=== PATIENT | male | born 1950 | race Caucasian/White ===

== ENCOUNTER 2017-01-22 06:37 | Day surgery (SDC) | payer BC ==
[2017-01-13 10:23] LABS: URINE APPEARANCE CLEAR; URINE BILIRUBIN NEGATIVE (NEGATIVE); URINE COLOR STRAW; URINE GLUCOSE (UA) 2+ (NEGATIVE); URINE KETONE NEGATIVE (NEGATIVE); URINE LEUK ESTERASE NEGATIVE (NEGATIVE); URINE NITRITE NEGATIVE (NEGATIVE); URINE UROBILINOGEN NEGATIVE E.U./dl (0.2-1.0)
[2017-01-13 10:26] LABS: BASOPHIL 0.7 % (0-2.0); EOSINOPHIL 3.3 % (0-4.5); MCH 32.1 pg (25.7-33.7); MCHC 33.9 g/dl (32.0-35.9); MEAN CELL VOLUME 94.5 fl (80-96); MEAN PLT VOLUME 8.6 fl (7.5-11.1); NEUTROPHILS 69.8 % (42.8-82.8); PLATELET COUNT 221 K/MM3 (134-434); RDW 12.5 % (11.9-15.9); WHITE BLOOD COUNT 6.3 K/mm3 (4.0-10.0)
[2017-01-13 10:37] LABS: INR 1.07 (0.82-1.09); PROTHROMBIN TIME (PATIENT) 11.8 SEC (9.98-11.88)
[2017-01-13 10:40] LABS: ACTIVATED PTT 27.6 SECONDS (26.9-34.4)
[2017-01-13 10:52] LABS: ALBUMIN 3.1 g/dl (3.4-5.0); ANION GAP 13 (8-16); CALCIUM 7.6 mg/dL (8.5-10.1); CO2 25 mmol/L (21-32); GLUCOSE,RANDOM 140 mg/dL (74-106); SGOT/AST 13 U/L (15-37); SGPT/ALT 11 U/L (12-78)
[2017-01-13 10:53] LABS: URINE BLOOD 1+ (NEGATIVE); URINE PROTEIN 3+ (NEGATIVE)
[2017-01-13 10:54] LABS: ALK PHOS 58 U/L (45-117); BILIRUBIN,TOTAL 0.9 mg/dL (0.2-1.0); CREATININE 5.2 mg/dL (0.7-1.3); TOT PROT 6.4 g/dl (6.4-8.2)
[2017-01-13 11:00] LABS: URINE RBC <1 /hpf (0-3); URINE WBC <1 /hpf (3-5)
--- NOTE | 2017-01-13 14:16 | EKG ---
Test Reason : Blood Pressure : / mmHG Vent. Rate : 075 BPM Atrial Rate : 075 BPM P-R Int : 150 ms QRS Dur : 080 ms QT Int : 384 ms P-R-T Axes : 073 054 063 degrees QTc Int : 428 ms NORMAL SINUS RHYTHM NORMAL ECG WHEN COMPARED WITH ECG OF 24-MAY-2010 10:45, NO SIGNIFICANT CHANGE WAS FOUND Confirmed by ROOSEVELT ROBLEDO MD ([id number]) on 01/13/2017 2:16:11 PM Referred By: JED GATICA Confirmed By:ROOSEVELT ROBLEDO MD
[2017-01-21 13:00] VITALS: BMI 26.9
[2017-01-22] MEDS ORDERED: HEPARIN NA (PORCINE) 5,000 UNITS/ML 1ML VIAL ONE (07:46)
[2017-01-22] MEDS ORDERED: LIDOCAINE HCL 1%, 10 MG/ML (20ML VIAL) ONE (07:46)
[2017-01-22] MEDS ORDERED: MIDAZOLAM HCL 2 MG/2 ML SINGLE DOSE VIAL ONE ×3 (07:53→09:15)
[2017-01-22] MEDS ORDERED: ONDANSETRON 4 MG/2 ML VIAL IVPUSH PRN (07:55)
[2017-01-22] MEDS ORDERED: PROMETHAZINE HCL 25 MG/1 ML VIAL IVPUSH PRN (07:55)
[2017-01-22] MEDS ORDERED: oxyCODONE HCL 5 MG TABLET PO PRN (07:55)
--- NOTE | 2017-01-22 08:02 | HP ---
History & Physical Update - History History: No Change - Physical Physical: No Change - Assessment Assessment: No Change - Plan Plan: No Change
--- NOTE | 2017-01-22 08:08 | HP ---
[facility] - Chief Complaint History of Present Illness: 66 year old man with chronic kidney disease who will need dialysis in near future. History Source: Patient Limitations to Obtaining History: No Limitations - Past Medical History Allergies/Adverse Reactions: Allergies Allergy/AdvReac Type Severity Reaction Status Date / Time No Known Allergies Allergy Verified 01/22/17 07:07 Cardiovascular: Yes: HTN Renal/: Yes: Renal Inusuff - Current Medications Current Medications: Home Medications Medication Instructions Recorded RX: Amlodipine Besylate [Norvasc -] 1 tab PO DAILY 11/08/13 Alfuzosin HCl [Uroxatral] 10 mg PO DAILY 01/22/17 RX: Losartan Potassium 100 mg PO DAILY 01/22/17 Rosuvastatin Calcium [Crestor] 20 mg PO DAILY 01/22/17 Satellite Physical Exam - Physical Examination Vital Signs: Vital Signs Period Temp Pulse Resp BP Sys/Ambrocio Pulse Ox Last 24 Hr 97.5 F-97.5 F 90-90 20-20 118-118/60-60 95 General Appearance: Alert & Oriented x3 ENT: Clear Lung: Clear to auscultation Heart: Regular rate & rhythm Abdomen: Soft Extremities: No edema, Other (Left cephalic vein patent proximal to elbow) [facility] Impression/Plan - Impression/Plan Impression: CKD Operative Procedure: Creation AV fistula left arm Date to be Performed: 01/22/17
[2017-01-22] MEDS ORDERED: POVIDONE-IODINE OINTMENT 10% - 28.4 GM TUBE ONE (08:26)
[2017-01-22] MEDS ORDERED: PAPAVERINE HCL 30 MG/1 ML 10 ML VIAL NR ONE (08:26)
[2017-01-22] MEDS ORDERED: PROPOFOL 20 ML ONE (08:32)
[2017-01-22] MEDS ORDERED: LIDOCAINE HCL 1%, 10 MG/ML (20ML VIAL) IJ ONE (08:40)
[2017-01-22] MEDS ORDERED: POVIDONE-IODINE OINTMENT 10% - 28.4 GM TUBE TP ONE (09:11)
--- NOTE | 2017-01-22 09:45 | OP ---
Operative Note - Note: Operative Date: 01/22/17 Pre-Operative Diagnosis: CKD 5 Operation: Creation AV fistula left arm Findings: Patent cephalic vein at wrist. Radial artery 2.5 mm Surgeon: Kai Doyle Industrial Gas Production Operator: Tamie Falk Anesthesiologist/EMPLOYMENT DIRECTOR: Lisa Michaels MD Anesthesia: Fractional Estimated Blood Loss (mls): 10
[2017-01-22] MEDS ORDERED: ACETAMINOPHEN 325 MG TABLET (FP) PO PRN (09:46)
[2017-01-22 10:30] VITALS: TEMP 98.2
[2017-01-22 11:39] VITALS: BP 115/66; PULSE 91
--- NOTE | 2017-01-22 14:26 | OP ---
DATE OF OPERATION: 01/22/2017 PROCEDURE: Creation of arteriovenous fistula in the left arm. PREOPERATIVE DIAGNOSIS: Chronic kidney disease stage 5. POSTOPERATIVE DIAGNOSIS: Chronic kidney disease stage 5. ANESTHESIA: Fractional. ANESTHESIOLOGIST: . FISH ROD MAKER: NESTOR Leroy. OPERATIVE FINDINGS: The cephalic vein was patent in the distal forearm with a diameter of approximately 3-4 mm. The radial artery was patent with a diameter of approximately 2.5 mm. PROCEDURE IN DETAIL: Following routine patient identification with site and side verification, intravenous sedation was established. The left arm was prepped with ChloraPrep. Xylocaine 1% was infiltrated over the radial pulse proximal to the wrist and a longitudinal incision was mad. Subcutaneous tissues were divided with cautery. The artery was identified and was carefully mobilized from surrounding tissues. It was encircled proximally and distally with Vesseloops. Small side branches were ligated with silk ties and divided. The artery was covered with moist gauze. Additional Xylocaine was then infiltrated over the distal cephalic vein which had been mapped preoperatively with duplex imaging. The vein was exposed through a skin incision and cautery was used for hemostasis. The vein was ligated distally and incised. It was distended with heparin and papaverine solution. A No. 5 and No. 8 feeding tubes were passed proximal without resistance. The vein was filled with heparin and papaverine solution. Side branches of the vein were ligated and divided. The vein was mobilized from its bed. A small subcutaneous tunnel was then created between the 2 incisions and the vein passed with care not to twist it so the end was lying next to the artery. The artery was occluded with the clips and opened with a longitudinal arteriotomy measuring approximately 6 mm. Forward and back flow from the artery was checked and found to be pulsatile. The end of the vein was then spatulated and anastomosed to the side of the artery with running suture of 6-0 Prolene. Prior to completing the suture line the artery was allowed to backbleed and flush and the vein was flushed with heparin solution. The suture line was completed and all vessels were released. There was palpable thrill in the distal vein. Evaluation by the handheld Doppler revealed venous flow up to the level of the antecubital fossa. When hemostasis was achieved, the wound was irrigated and closed with interrupted suture of 3-0 Vicryl and skin mirtha. Sterile dressings were applied and the patient was taken to the recovery room in stable condition. Omid DUMONT/[id number]
--- NOTE | 2017-01-22 19:52 | SURG ---
Surgery Foundry Equipment Mechanic Note Foundry Equipment Mechanic: Tamie Falk PA-C Date of Service: 01/22/17 Diagnosis: Creation AV fistula left arm Procedure: Patent cephalic vein at wrist. Radial artery 2.5 mm I was present for the entirety of the operative procedure. For further detail, please refer to operative report. Visit type - Case Type Case Type: Scheduled Admission - Emergency Emergency Visit: No - New patient This patient is new to me today: Yes Date on this admission: 01/22/17 - Critical Care Critical Care patient: No
== END 2017-01-22 11:39 | disposition home or self-care (01) ==
LOC: JASU-SURG 06:37
PROVIDERS: ATTEND Surgery
PROC: 031C0ZF Bypass Left Radial Artery to Lower Arm Vein, Open Approach (ICD-10-PCS; principal; 2017-01-22 08:00)
DX: I12.0 Hypertensive chronic kidney disease with stage 5 chronic kidney disease or end stage renal disease (principal); N18.6 End stage renal disease
CPT/HCPCS: 36415; 80053; 81003; 81015; 85025; 85610; 85730; 93005; 93010; 94760; J1644

== ENCOUNTER 2017-06-06 16:10 | Inpatient (IN) | payer BC, OTHER ==
[2017-06-06 16:41] VITALS: BMI 26.9
--- NOTE | 2017-06-06 16:49 | PDOC ---
History of Present Illness - General History Source: Patient Exam Limitations: No Limitations - History of Present Illness Initial Comments: 06/06/17 17:00 67 year old male, with PMH of Stage 5 CKD, who presents to the emergency room today s/p 1 syncopal episode this afternoon and SOB. The patient explains that he was feeling more SOB than usual today and notes that he cannot make it up a few steps without stopping to catch his breath. He was in the backyard this afternoon turning off the faucet for the hose, when he felt very SOB, lost consciousness, and fell backwards. He hit the back of his head and obtained a laceration which was initially bleeding. The patient went to visit in the office who sent him into the ER concerned for a PE. The patient is scheduled to start his first dialysis treatment next week. Denies fever, chills, nausea, vomiting. Denies headache, lightheadedness. Denies chest pain, cough. Allergies: NKDA PCP: Dr. Vinny Hamm Technical Editor: Dr. [employer] Teammate: Dr. Hopkins <Zuleyka Benedict - Last Filed: 06/06/17 18:59> <James Sosa - Last Filed: 06/06/17 19:59> - General Chief Complaint: Syncope/Near Syncope Stated Complaint: FALL Time Seen by Provider: 06/06/17 16:37 Past History <Zuleyka Benedict - Last Filed: 06/06/17 18:59> - Past Medical History Anemia: No Asthma: No Cancer: No Cardiac Disorders: No CVA: No COPD: No CHF: No Dementia: No Diabetes: No GI Disorders: Yes (COLON POLYPS,HEMORROIDS;GERD; DIVERTICULOSIS;TUBULAR ADENOMA X 3) Disorders: No HTN: No Hypercholesterolemia: Yes Liver Disease: No Seizures: No Thyroid Disease: No Other medical history: enlarged prostate, end stage renal disease - Surgical History Abdominal Surgery: No Appendectomy: No Cardiac Surgery: No Cholecystectomy: No Lung Surgery: No Neurologic Surgery: No Orthopedic Surgery: No - Immunization History Immunization Up to Date: Yes - Suicide/Smoking/Psychosocial Hx Smoking History: Former smoker Have you smoked in the past 12 months: No If you are a former smoker, when did you quit?: 10 years ago Information on smoking cessation initiated: No Hx Alcohol Use: No Drug/Substance Use Hx: No Substance Use Type: None Hx Substance Use Treatment: No <SheilaJames nolasco - Last Filed: 06/06/17 19:59> - Past Medical History Allergies/Adverse Reactions: Allergies Allergy/AdvReac Type Severity Reaction Status Date / Time No Known Allergies Allergy Verified 06/06/17 16:35 Home Medications: Ambulatory Orders Amlodipine Besylate [Norvasc -] 1 tab PO DAILY 11/08/13 Alfuzosin HCl [Uroxatral] 10 mg PO DAILY 01/22/17 Losartan Potassium 100 mg PO DAILY 01/22/17 Rosuvastatin Calcium [Crestor] 20 mg PO DAILY 01/22/17 Carvedilol 6.25 mg PO DAILY 06/06/17 Furosemide [Lasix] 40 mg PO DAILY 06/06/17 Lidocaine [Anecream5] 30 gm TP DAILY 06/06/17 Review of Systems - Review of Systems Able to Perform ROS?: Yes Comments:: 06/06/17 17:01 A complete review of 10 out of 10 review of systems is taken and is negative apart from what is previously mentioned below and in the HPI. <Zuleyka Benedict - Last Filed: 06/06/17 18:59> *Physical Exam - Vital Signs Last Vital Signs Temp Pulse Resp BP Pulse Ox 97.4 F L 112 H 20 150/81 86 L 06/06/17 16:10 06/06/17 16:10 06/06/17 16:10 06/06/17 16:10 06/06/17 16:10 - Physical Exam Comments: 06/06/17 17:01 Vitals: Triage Vital signs reviewed General Appearance: no acute distress, well nourished well developed Head: + 3cm x 3cm abrasion to the left occiput. No laceration. Eyes: Pupils equal reactive round, extraocular movement intact Nose: Nares patent bilaterally; no nasal congestion Throat: Posterior oropharynx without erythema, mucous membranes moist Neck: Supple; No Nucal rigidity Chest Wall: Nontender Cardiac: Regular rate and rhythym, no murmurs, no rubs, no gallops Lungs: Fine crackles at the bases bilaterally, good air movement bilaterally Abdomen: Soft, non distended, normal bowel sounds, non tender to palpation Skin: +Left wrist fistula with palpable thrill. Warm and dry, no rashes or lesions, no rash, no petechiae Neuro: AOX3; Cranial Nerves 2-12 grossly intact, Strength intact to all extremities, Sensation intact to all extremities Psych: Normal mood, normal affect <Zuleyka Benedict - Last Filed: 06/06/17 18:59> - Vital Signs Last Vital Signs Temp Pulse Resp BP Pulse Ox 97.4 F L 112 H 20 150/81 86 L 06/06/17 16:10 06/06/17 16:10 06/06/17 16:10 06/06/17 16:10 06/06/17 16:10 <James Sosa - Last Filed: 06/06/17 19:59> Heart Score/ECG Review #1 06/06/17 18:08 EKG performed at 17:13 demonstrates rate of 115bpm , rhythm of sinus tachycardia, axis equal to normal. No st elevations, no t wave inversions <Zuleyka Benedict - Last Filed: 06/06/17 18:59> ED Treatment Course - LABORATORY CBC & Chemistry Diagram: 06/06/17 16:45 06/06/17 16:45 - ADDITIONAL ORDERS Additional order review: 06/06/17 16:45 RBC 3.16 L MCV 93.3 MCHC 33.4 RDW 14.7 MPV 7.8 Neutrophils % 78.1 Lymphocytes % 12.1 Monocytes % 8.7 Eosinophils % 0.6 D Basophils % 0.5 <Zuleyka Benedict - Last Filed: 06/06/17 18:59> - LABORATORY CBC & Chemistry Diagram: 06/06/17 16:45 06/06/17 16:45 - RADIOLOGY Radiology Studies Ordered: Category Date Time Status HEAD CT WITHOUT CONTRAST [CT] Stat CT Scan 06/06/17 16:38 Ordered CXRPORT [CHEST X-RAY PORTABLE*] [RAD] Stat Radiology 06/06/17 16:38 Ordered <James Sosa - Last Filed: 06/06/17 19:59> Medical Decision Making - Medical Decision Making 06/06/17 19:58 HEENT with stage V renal nephropathy presents with syncopal episode with exacerbation of shortness of breath. Small abrasion noted to back of head. Bacitracin applied. Tetanus updated. EKG sinus tachycardia. Given mild tachycardia mild hypoxia and syncope CTA ordered. Dr. Pickering at bedside. We'll dialyze patient immediately after CTA Reevaluation 745 no evidence of PE on CTA. Patient to be sent to dialysis as we' ll admit to medicine for further management and further evaluation of additional CT findings. <James Sosa - Last Filed: 06/06/17 19:59> *DC/Admit/Observation/Transfer - Attestations Scribe Attestion: 06/06/17 17:02 Documentation prepared by SIERRA Jennings, acting as clinical medical assistant for James Sosa MD. <Zuleyka Benedict - Last Filed: 06/06/17 18:59> - Discharge Dispostion Admit: Yes <James Sosa - Last Filed: 06/06/17 19:59> Diagnosis at time of Disposition: CKD (chronic kidney disease) stage 5, GFR less than 15 ml/min, ESRD (end stage renal disease)
[2017-06-06 16:55] LABS: BASOPHIL 0.5 % (0-2.0); EOSINOPHIL 0.6 % (0-4.5); MCH 31.2 pg (25.7-33.7); MCHC 33.4 g/dl (32.0-35.9); MEAN CELL VOLUME 93.3 fl (80-96); MEAN PLT VOLUME 7.8 fl (7.5-11.1); NEUTROPHILS 78.1 % (42.8-82.8); PLATELET COUNT 246 K/MM3 (134-434); RDW 14.7 % (11.9-15.9); WHITE BLOOD COUNT 8.2 K/mm3 (4.0-10.0)
[2017-06-06 17:10] LABS: URINE APPEARANCE SLCLOUDY; URINE BILIRUBIN NEGATIVE (NEGATIVE); URINE BLOOD 1+ (NEGATIVE); URINE COLOR LTYELLOW; URINE GLUCOSE (UA) 3+ (NEGATIVE); URINE KETONE NEGATIVE (NEGATIVE); URINE NITRITE NEGATIVE (NEGATIVE); URINE UROBILINOGEN NEGATIVE mg/dL (0.2-1.0)
[2017-06-06 17:19] LABS: URINE HYALINE CAST 7 /lpf; URINE MUCUS RARE; URINE PROTEIN 3+ (NEGATIVE); URINE RBC 3; URINE WBC 6
[2017-06-06 17:25] LABS: ALBUMIN 2.7 g/dl (3.4-5.0); ANION GAP 11 (8-16); CALCIUM 7.1 mg/dL (8.5-10.1); CO2 17 mmol/L (21-32); CREATININE 3.9 mg/dL (0.7-1.3); GLUCOSE,RANDOM 161 mg/dL (74-106); SGOT/AST 14 U/L (15-37); SGPT/ALT 15 U/L (12-78); TOT PROT 5.9 g/dl (6.4-8.2)
[2017-06-06 17:26] LABS: ALK PHOS 72 U/L (45-117)
--- NOTE | 2017-06-06 18:25 | CON.NEP ---
Consult Consult Specialty:: Nephrology Reason for Consultation:: CKD Stage IV/V, admitted with syncopal episode. - History of Present Illness Chief Complaint: I fell and hit my head. History of Present Illness: Mr. Krishnamurthy is a 67 year old gentleman with a history of CKD stage V (eGFR 13-15 mL/min/1.73m2) from refractory idiopathic membranous nephropathy, who presented to ED after falling at home this afternoon. He was seen in office earlier today and was noted to have been experiencing progressive dyspnea, thought to be the result of volume overload. He was prescribed lasix 40 mg today, which he did not start. He went home and started to do some work in his backyard. He recalls bending down to turn off a hose, and then found himself on the floor. The event was witnessed by his , who said he "collapsed" and struck the back of his head on a concrete. She called 911. Upon arrival in the ED, he was noted to be awake and alert, with an abrasion to his occipital area. He was noted to have hypoxemia and dyspnea (see below): Vital Signs Temperature 97.4 F L 06/06/17 16:10 Pulse Rate 112 H 06/06/17 16:10 Respiratory Rate 20 06/06/17 16:10 Blood Pressure 150/81 06/06/17 16:10 O2 Sat by Pulse Oximetry (%) 86 L 06/06/17 16:10 His preliminary labs revealed: Laboratory Results - last 24 hr 06/06/17 06/06/17 06/06/17 16:45 16:45 16:45 WBC 8.2 RBC 3.16 L Hgb 9.9 L D Hct 29.5 L MCV 93.3 MCH 31.2 MCHC 33.4 RDW 14.7 Plt Count 246 MPV 7.8 Neutrophils % 78.1 Lymphocytes % 12.1 Monocytes % 8.7 Eosinophils % 0.6 D Basophils % 0.5 PTT (Actin FS) Sodium 145 Potassium 4.0 Chloride 117 H Carbon Dioxide 17 L Anion Gap 11 BUN 37 H Creatinine 3.9 H Creat Clearance w eGFR 15.45 Random Glucose 161 H Calcium 7.1 L Total Bilirubin 1.0 AST 14 L D ALT 15 D Alkaline Phosphatase 72 Troponin I 0.04 B-Natriuretic Peptide Total Protein 5.9 L Albumin 2.7 L Urine Color Urine Appearance Urine pH Ur Specific Berkey Urine Protein Urine Glucose (UA) Urine Ketones Urine Blood Urine Nitrite Urine Bilirubin Urine Urobilinogen Urine WBC (Auto) Urine RBC (Auto) Ur Epithelial Cells Hyaline Casts Urine Mucus Blood Type Antibody Screen B-Natriuretic Peptide 25461.00 H Given his history of nephrotic syndrome and syncopal event, decision was made to exclude entities such as pulmonary embolus. He was sent for CT head (non- contrast), as well as CTA chest to exclude PE. Given his low GFR, the need for IV contrast administration and suspected volume overload, we discussed the need to initiate HD following his CTA. He understands and has agreed. Of note, he was scheduling a start date at [facility] for next week. Historically, he was initially diagnosed in 2006, was treated with multiple immunosuppressive regimens, but continued to progress. He has been off of all immunosuppression since 2014, the last being a trial of ACTHAR (2 courses of 6 months). He has followed with Dr. Helton ([facility]) since 2008 and followed up with him on August 08, 2016 for an opinion regarding use of additional immunosuppression medication. At that time, Mr. Krishnamurthy was noted to have a BUN/ Cr of 49/3.33 with a UPCR 13323 mg/g. Given his lack of response to prior therapies, no additional immunosuppressants were recommended. He states that he underwent cardiac nuclear stress testing in January, which did not reveal any acute changes. He was diagnosed with early prostate cancer in January, and was told that no Rx was necessary at this time. He underwent successful creation of left AVF in January and had follow up with Dr. Doyle on 03/11/17. He received Hep B vaccine #1 and #2 on 02/13/17. He is due for his third dose in Jul, 2017. He is scheduled for a biopsy of a second thyroid nodule in 1 week. - History Source History Provided By: Patient Limitations to Obtaining History: No Limitations - Past Medical History Cardio/Vascular: Yes: HTN Gastrointestinal: Yes: Other (benign colonic polyps) Renal/: Yes: Renal Inusuff (Idiopathic membranous nephropathy (dx 2006, failed to respond to prior therapy with agents including mycophenolate, Cytoxan , tacrolimus, prednisone, intravenous rituximab and Acthar Gel) ) Heme/Onc: Yes: Anemia Infectious Disease: No: AIDS, C-Diff, Herpes Zoster, HIV, MRSA, STD's, Tuberculosis, VREF, Other Psych: No: Addictions, Anxiety, Bipolar, Depression, Panic, Psychosis, Schizophrenia, Other Musculoskeletal: No: Bursitis, Chronic low back pain, Hemiparesis, Hemiplegia, Osteoarthritis, Paraplegia, Other Rheumatology: No: Fibromyalgia, Gout, Lupus, Rheumatoid Arthritis, Sarcoidosis, Vasculitis, Other ENT: No: Allergic Rhinitis, Sinusitis, Other Endocrine: Yes: Hyperparathyroidism, Other (Multinodular goiter) - Past Surgical History Past Surgical History: Yes: AV Fistula/Graft (left arm) - Alcohol/Substance Use Hx Alcohol Use: No (quit all EtOH use approximately 1 month ago; 1-2 glasses wine 3-4x week nasir) History of Substance Use: reports: None - Smoking History Smoking history: Former smoker Have you smoked in the past 12 months: No If you are a former smoker, when did you quit?: 10 years ago - Social History Usual Living Arrangement: With Spouse ADL: Independent Place of : Other ([place]) Home Medications - Allergies Allergies/Adverse Reactions: Allergies Allergy/AdvReac Type Severity Reaction Status Date / Time No Known Allergies Allergy Verified 06/06/17 16:35 - Home Medications Home Medications: Ambulatory Orders Amlodipine Besylate [Norvasc -] 1 tab PO DAILY 11/08/13 Alfuzosin HCl [Uroxatral] 10 mg PO DAILY 01/22/17 Losartan Potassium 100 mg PO DAILY 01/22/17 Rosuvastatin Calcium [Crestor] 20 mg PO DAILY 01/22/17 Carvedilol 6.25 mg PO DAILY 06/06/17 Furosemide [Lasix] 40 mg PO DAILY 06/06/17 Lidocaine [Anecream5] 30 gm TP DAILY 06/06/17 Family Disease History - Family Disease History Family History: Unremarkable Review of Systems - Review of Systems Constitutional: reports: Loss of Appetite, Malaise, Weakness. denies: Chills, Diaphoresis, Fever, Lethargy, Night Sweats, Unintentional Wgt. Loss Eyes: denies: Blind Spots, Blurred Vision, Double Vision, Eye Pain, Floaters, Photophobia HENT: reports: Other (abbrasion to occipital region, oozing). denies: Difficult Swallowing, Ear Discharge, Ear Pain, Nasal Congestion Neck: denies: Decreased ROM, Lumps, Pain on Movement Cardiovascular: reports: Shortness of Breath. denies: Chest Pain, Edema, Palpitations Respiratory: reports: Exercise Intolerance, Orthopnea, SOB, SOB on Exertion. denies: Cough, Hemoptysis Gastrointestinal: reports: Bloating. denies: Abdominal Pain, Constipation, Diarrhea, Dysphagia, Indigestion Genitourinary: denies: Burning, Discharge, Dysuria, Flank Pain, Frequency Musculoskeletal: reports: Back Pain, Muscle Weakness. denies: Joint Pain, Joint Swelling, Muscle Pain, Muscle Cramps Integumentary: reports: Wound (to posterior occipital area) Neurological: reports: Headache, Syncope (possible LOC). denies: Change in LOC , Change in Speech, Confusion, Dizziness, Incoordination, Numbness, Seizure Endocrine: denies: Excessive Sweating, Flushing Hematology/Lymphatic: reports: No Symptoms Psychiatric: reports: No Symptoms Nephrology Consult - Height Height: 5 ft 7 in - Weight Weight: 172 lb - BMI Body Mass Index (BMI): 26.9 - Lab Results CBC,BMP: CBC, BMP 06/06/17 16:45 06/06/17 16:45 Anion Gap: Anion Gap Anion Gap 11 (8-16) 06/06/17 16:45 - Imaging Chest X-ray: Pending Cat Scan: Pending - Physical Examination Vital Signs: Vital Signs Temperature 97.4 F L 06/06/17 16:10 Pulse Rate 112 H 06/06/17 16:10 Respiratory Rate 20 06/06/17 16:10 Blood Pressure 150/81 06/06/17 16:10 O2 Sat by Pulse Oximetry (%) 86 L 06/06/17 16:10 Constitutional: Yes: Anxious, Mild Distress Eyes: Yes: Conjunctiva Clear HENT: Yes: Other (2-3 cm circular region of excoritation to occipital region, oozing) Neck: Yes: Supple Cardiovascular: Yes: Tachycardia, S1, S2. No: S3, S4 Respiratory: Yes: Diminished Gastrointestinal: Yes: Soft, Distention. No: Tenderness Renal/: No: Bladder Distention Access for Hemodialysis: AV Fistula (left AVF + thrill) Musculoskeletal: No: Back Pain, Joint Stiffness, Joint Swelling Edema: No Integumentary: Yes: Other (see HEENT exam) Neurological: Yes: Alert, Oriented Psychiatric: Yes: WNL Problem List - Problems (1) CKD (chronic kidney disease) stage 5, GFR less than 15 ml/min Assessment/Plan: Mr. Krishnamurthy is a 67 year old gentleman with CKD Stage V, secondary to severe and refractory membranous nephropathy. He has a functional left arm AVF, but has not started hemodialysis. He has been managed medically and was planning to electively start HD next week at [facility]. He has been experiencing progressive dyspnea and hypoalbuminemia. Following his syncopal episode, in the context of dyspnea and hypoxemia, it was decided that he would need a CTA with contrast. Given suspected volume overload and advanced CKD with use of IV contrast, will arrange for initial hemodialysis tonight for 2 hours, with volume removal as tolerated. Will plan for HD#2 tomorrow, pending result of CTA. Code(s): N18.5 - CHRONIC KIDNEY DISEASE, STAGE 5 (2) Dyspnea, unspecified Assessment/Plan: Progessive dyspnea on exertion, likely volume overload. Given the tachycardia and hypoxemia, agree with need to exclude entities such as PE (especially given history of nephrotic syndrome). Will await result of CTA. Plan to initiate post- contrast HD tonight with volume removal as tolerated. HD #2 scheduled for tomorrow. Code(s): R06.00 - DYSPNEA, UNSPECIFIED Qualifiers: Dyspnea type: dyspnea on exertion Qualified Code(s): R06.09 - Other forms of dyspnea (3) Syncope Assessment/Plan: Suspected syncopal episode, which he states was due to "shortness of breath". CT head is pending. Code(s): R55 - SYNCOPE AND COLLAPSE Qualifiers: Syncope type: unspecified Qualified Code(s): R55 - Syncope and collapse
[2017-06-06] MEDS ORDERED: DIPHTH,PERTUSS(ACELL),TET 0.5 ML DISP.SYRIN IM ONE (18:58)
[2017-06-06] MEDS ORDERED: BACITRACIN 0.9 GM PACKET ONE (18:59)
[2017-06-06] MEDS: BACITRACIN 15 GM TUBE TOPICAL OINTMENT TP SCH (19:05)
[2017-06-06] MEDS ORDERED: EPOETIN ALFA 2,000 UNITS/1 ML VIAL SQ ONE (19:40)
[2017-06-06] MEDS: ALBUMIN HUMAN 25% 12.5 GM/50 ML VIAL IVPB SCH ×4 (20:00→22:00)
[2017-06-06 21:12] LABS: URINE LEUK ESTERASE Negative (NEGATIVE)
--- NOTE | 2017-06-06 21:40 | HP ---
CHIEF COMPLAINT: Syncope, SOB PCP: Dr. Hamm HISTORY OF PRESENT ILLNESS: This is a 67 y/o man with a past medical history of Stage 5 CKD, HTN, HLD, Prostate Ca (no Rx, 01/2017), Hyperparathyroidism, GERD, BPH. Who presents to the ED by ambulance from home s/p syncope, SOB. Per family, the patient has been having periods of SOB x 6 months, worse today. Per patient's daughter, the patient was doing some yard work and became lightheaded and dizzy, he also was having BENÍTEZ. Patient denies fever, cough, chills, NUNES, CP, palpitations, AP, N/V/D , constipation. ER course was notable for: (1) CT Head- negative ICH (2) Chest Xray- cardiomegaly, mild vascular congestion (3) BNP 25279 Recent Travel: None PAST MEDICAL HISTORY: See HPI PAST SURGICAL HISTORY: See HPI Social History: Smoking: Former Alcohol: Former Drugs: None Lives with spouse Family History: Allergies No Known Allergies Allergy (Verified 06/06/17 16:35) HOME MEDICATIONS: Home Medications Medication Instructions Recorded Amlodipine Besylate [Norvasc -] 1 tab PO DAILY 11/08/13 Alfuzosin HCl [Uroxatral] 10 mg PO DAILY 01/22/17 Losartan Potassium 100 mg PO DAILY 01/22/17 Rosuvastatin Calcium [Crestor] 20 mg PO DAILY 01/22/17 Carvedilol 6.25 mg PO DAILY 06/06/17 Furosemide [Lasix] 40 mg PO DAILY 06/06/17 Lidocaine [Anecream5] 30 gm TP DAILY 06/06/17 REVIEW OF SYSTEMS CONSTITUTIONAL: Absent: fever, chills, diaphoresis, generalized weakness, malaise, loss of appetite, weight change HEENT: Absent: rhinorrhea, nasal congestion, throat pain, throat swelling, difficulty swallowing, mouth swelling, ear pain, eye pain, visual changes CARDIOVASCULAR: syncope, lightheadedness, peripheral edema Absent: chest pain, palpitations, irregular heart rate RESPIRATORY: shortness of breath Absent: cough, dyspnea with exertion, orthopnea, wheezing, stridor, hemoptysis GASTROINTESTINAL: Absent: abdominal pain, abdominal distension, nausea, vomiting, diarrhea, constipation, melena, hematochezia GENITOURINARY: Absent: dysuria, frequency, urgency, hesitancy, hematuria, flank pain, genital pain MUSCULOSKELETAL: Absent: myalgia, arthralgia, joint swelling, back pain, neck pain SKIN: Absent: rash, itching, pallor HEMATOLOGIC/IMMUNOLOGIC: Absent: easy bleeding, easy bruising, lymphadenopathy, frequent infections ENDOCRINE: Absent: unexplained weight gain, unexplained weight loss, heat intolerance, cold intolerance NEUROLOGIC: Absent: headache, focal weakness or paresthesias, dizziness, unsteady gait, seizure, mental status changes, bladder or bowel incontinence PSYCHIATRIC: Absent: anxiety, depression, suicidal or homicidal ideation, hallucinations. PHYSICAL EXAMINATION Vital Signs - 24 hr 06/06/17 06/06/17 06/06/17 16:10 19:20 19:55 Temperature 97.4 F L Pulse Rate 112 H 212 H Pulse Rate [ 108 H Apical] Respiratory 20 18 18 Rate Blood Pressure 150/81 170/111 Blood Pressure 157/95 [Right Arm] O2 Sat by Pulse 86 L 92 L Oximetry (%) 06/06/17 06/06/17 20:05 20:35 Temperature Pulse Rate 108 H 107 H Pulse Rate [ Apical] Respiratory 18 18 Rate Blood Pressure 158/93 148/95 Blood Pressure [Right Arm] O2 Sat by Pulse Oximetry (%) GENERAL: Awake, alert, and fully oriented, in no acute distress. HEAD: Normal, lac to occiptal. EYES: Pupils equal, round and reactive to light, extraocular movements intact, sclera anicteric, conjunctiva clear. No lid lag. EARS, NOSE, THROAT: Ears normal, nares patent, oropharynx clear without exudates. Moist mucous membranes. NECK: Normal range of motion, supple without lymphadenopathy, JVD, or masses. LUNGS: Breath sounds equal clear to apex, diminished to bases. No wheezes, and no crackles. No accessory muscle use. HEART: Regular rate and rhythm, normal S1 and S2 without murmur, rub or gallop. ABDOMEN: Soft, nontender, not distended, normoactive bowel sounds, no guarding, no rebound, no masses. No hepatomegaly or splenomegaly. MUSCULOSKELETAL: Normal range of motion at all joints. No bony deformities or tenderness. No CVA tenderness. UPPER EXTREMITIES: 2+ pulses, warm, well-perfused. No cyanosis. No clubbing. No peripheral edema. AV Fistula to L- arm, +thrill/bruit LOWER EXTREMITIES: 2+ pulses, warm, well-perfused. No calf tenderness. +2 pitting R>L peripheral edema. NEUROLOGICAL: Cranial nerves II-XII intact. Normal speech. Gait not observed. PSYCHIATRIC: Cooperative. Good eye contact. Appropriate mood and affect. SKIN: Warm, dry, normal turgor, no rashes or lesions noted, normal capillary refill. Laboratory Results - last 24 hr 06/06/17 06/06/17 06/06/17 16:45 16:45 16:45 WBC 8.2 RBC 3.16 L Hgb 9.9 L D Hct 29.5 L MCV 93.3 MCH 31.2 MCHC 33.4 RDW 14.7 Plt Count 246 MPV 7.8 Neutrophils % 78.1 Lymphocytes % 12.1 Monocytes % 8.7 Eosinophils % 0.6 D Basophils % 0.5 PTT (Actin FS) Sodium 145 Potassium 4.0 Chloride 117 H Carbon Dioxide 17 L Anion Gap 11 BUN 37 H Creatinine 3.9 H Creat Clearance w eGFR 15.45 Random Glucose 161 H Calcium 7.1 L Total Bilirubin 1.0 AST 14 L D ALT 15 D Alkaline Phosphatase 72 Troponin I 0.04 B-Natriuretic Peptide Total Protein 5.9 L Albumin 2.7 L Urine Color Urine Appearance Urine pH Ur Specific [place] Urine Protein Urine Glucose (UA) Urine Ketones Urine Blood Urine Nitrite Urine Bilirubin Urine Urobilinogen Ur Leukocyte Esterase Urine WBC (Auto) Urine RBC (Auto) Ur Epithelial Cells Hyaline Casts Urine Mucus Blood Type Antibody Screen 06/06/17 06/06/17 06/06/17 16:45 16:51 16:51 WBC RBC Hgb Hct MCV MCH MCHC RDW Plt Count MPV Neutrophils % Lymphocytes % Monocytes % Eosinophils % Basophils % PTT (Actin FS) 25.8 L Sodium Potassium Chloride Carbon Dioxide Anion Gap BUN Creatinine Creat Clearance w eGFR Random Glucose Calcium Total Bilirubin AST ALT Alkaline Phosphatase Troponin I B-Natriuretic Peptide 34688.00 H Total Protein Albumin Urine Color Urine Appearance Urine pH Ur Specific [place] Urine Protein Urine Glucose (UA) Urine Ketones Urine Blood Urine Nitrite Urine Bilirubin Urine Urobilinogen Ur Leukocyte Esterase Urine WBC (Auto) Urine RBC (Auto) Ur Epithelial Cells Hyaline Casts Urine Mucus Blood Type O POSITIVE Antibody Screen Negative 06/06/17 17:00 WBC RBC Hgb Hct MCV MCH MCHC RDW Plt Count MPV Neutrophils % Lymphocytes % Monocytes % Eosinophils % Basophils % PTT (Actin FS) Sodium Potassium Chloride Carbon Dioxide Anion Gap BUN Creatinine Creat Clearance w eGFR Random Glucose Calcium Total Bilirubin AST ALT Alkaline Phosphatase Troponin I B-Natriuretic Peptide Total Protein Albumin Urine Color Ltyellow Urine Appearance Slcloudy Urine pH 6.0 Ur Specific [place] 1.017 Urine Protein 3+ H Urine Glucose (UA) 3+ H Urine Ketones Negative Urine Blood 1+ H Urine Nitrite Negative Urine Bilirubin Negative Urine Urobilinogen Negative Ur Leukocyte Esterase Negative Urine WBC (Auto) 6 Urine RBC (Auto) 3 Ur Epithelial Cells Rare Hyaline Casts 7 Urine Mucus Rare Blood Type Antibody Screen ASSESSMENT/PLAN: This is a 67 yo male with a PMHx of: Stage 5 CKD, Prostate Ca (01/2017, no Rx), HTN, HLD, Hyperparathyroidism, GERD, BPH. Admitted for Syncope, ESRD for further evaluation of their emergent condition. Plan: 1. Syncope- Likely secondary to ACS vs ESRD. Tele monitoring, Serial Enzymes, Mag, Phos in am, Appreciate Cardiology Consult, Asa 2. ESRD- HD, Nephrology following, Hold Losartan secondary to CKD 3. HTN- Suboptimal, monitor BP, Continue Norvasc 3. Anemia- Hb 9.9 at baseline, will transfuse if Hb < 7.0, monitor CBC 4. HLD- Continue Crestor, lipid panel in am 5. BPH- Continue Afluzosin 6. Elevated BNP- Likely secondary to ESRD, Chest Xray- CM, mild congestion 7. FEN- Fluid Restrictions 1L, Replete lytes prn, Renal, Low Na Diet 8. DVT Prophylaxis- OOB, SCDs, Heparin SQ Dispo: Requires Inpatient Care Problem List - Problem (1) Syncope Code(s): R55 - SYNCOPE AND COLLAPSE Qualifiers: Syncope type: unspecified Qualified Code(s): R55 - Syncope and collapse (2) ESRD (end stage renal disease) Code(s): N18.6 - END STAGE RENAL DISEASE (3) CKD (chronic kidney disease) stage 5, GFR less than 15 ml/min Code(s): N18.5 - CHRONIC KIDNEY DISEASE, STAGE 5 (4) HTN (hypertension) Code(s): I10 - ESSENTIAL (PRIMARY) HYPERTENSION (5) HLD (hyperlipidemia) Code(s): E78.5 - HYPERLIPIDEMIA, UNSPECIFIED (6) Anemia Code(s): D64.9 - ANEMIA, UNSPECIFIED (7) GERD (gastroesophageal reflux disease) Code(s): K21.9 - GASTRO-ESOPHAGEAL REFLUX DISEASE WITHOUT ESOPHAGITIS (8) Hyperparathyroidism Code(s): E21.3 - HYPERPARATHYROIDISM, UNSPECIFIED (9) BPH (benign prostatic hyperplasia) Code(s): N40.0 - BENIGN PROSTATIC HYPERPLASIA WITHOUT LOWER URINRY TRACT SYMP (10) Prostate CA Code(s): C61 - MALIGNANT NEOPLASM OF PROSTATE (11) Dyspnea, unspecified Code(s): R06.00 - DYSPNEA, UNSPECIFIED Qualifiers: Dyspnea type: dyspnea on exertion Qualified Code(s): R06.09 - Other forms of dyspnea Visit type - Emergency Visit Emergency Visit: Yes ED Registration Date: 06/06/17 Care time: The patient presented to the Emergency Department on the above date and was hospitalized for further evaluation of their emergent condition. - New Patient This patient is new to me today: Yes Date on this admission: 06/06/17 - Critical Care Critical Care patient: No
[2017-06-07] MEDS ORDERED: ALBUMIN HUMAN 25% 12.5 GM/50 ML VIAL IVPB SCH (00:01)
[2017-06-07] MEDS ORDERED: ALBUMIN HUMAN 25% 12.5 GM/50 ML VIAL IVPB PRN (05:38)
[2017-06-07] MEDS ORDERED: LIDOCAINE 2.5%/PRILOCAINE 2.5% (5 Gram/TUBE) TP ONE (08:00)
[2017-06-07] MEDS: ACETAMINOPHEN 325 MG TABLET (FP) PO PRN ×2 (08:12→21:46)
[2017-06-07] MEDS ORDERED: PT OWN MED DRAWER 7, Y5N ONE ×2 (08:17→20:49)
--- NOTE | 2017-06-07 08:36 | PN ---
Progress Note, Physician - Current Medication List Current Medications: Active Medications Acetaminophen (Tylenol -) 650 mg PO Q6H PRN PRN Reason: FEVER OR PAIN Last Admin: 06/07/17 08:12 Dose: 650 mg Albumin Human (Albumin Human 25%) 12.5 gm IVPB Q30M PRN PRN Reason: FOR LOW BP DURING DIALYSIS Amlodipine Besylate (Norvasc -) 5 mg PO DAILY [facility] Bacitracin (Bacitracin -) 1 applic TP DAILY [facility] Last Admin: 06/06/17 19:05 Dose: 1 packet Carvedilol (Coreg -) 6.25 mg PO DAILY [facility] Heparin Sodium (Porcine) (Heparin -) 5,000 unit SQ BID [facility] - Objective Vital Signs: Vital Signs Temperature 98.7 F 06/07/17 06:54 Pulse Rate 102 H 06/07/17 06:54 Respiratory Rate 18 06/07/17 06:54 Blood Pressure 126/71 06/07/17 06:54 O2 Sat by Pulse Oximetry (%) 95 06/06/17 22:30 Labs: CBC, BMP 06/06/17 16:45 06/06/17 16:45 Problem List - Problems (1) Anemia Assessment/Plan: patient is being followed by renal for the initiation of dialysis Code(s): D64.9 - ANEMIA, UNSPECIFIED Qualifiers: Anemia type: due to chronic kidney disease Chronic kidney disease stage: on chronic dialysis Qualified Code(s): N18.6 - End stage renal disease; D63.1 - Anemia in chronic kidney disease; D63.1 - Anemia in chronic kidney disease; Z99.2 - Dependence on renal dialysis; Z99.2 - Dependence on renal dialysis; Z99.2 - Dependence on renal dialysis; Z99.2 - Dependence on renal dialysis (2) BPH (benign prostatic hyperplasia) Assessment/Plan: stable Code(s): N40.0 - BENIGN PROSTATIC HYPERPLASIA WITHOUT LOWER URINRY TRACT SYMP Qualifiers: Lower urinary tract symptom presence: symptoms present Lower urinary tract symptom detail: urinary frequency Qualified Code(s): N40.1 - Benign prostatic hyperplasia with lower urinary tract symptoms; R35.0 - Frequency of micturition ; R35.0 - Frequency of micturition (3) Dyspnea, unspecified Assessment/Plan: resolved after dialysis obtain echocardiogram if the patient has decreased EF consult cardiology for further management Code(s): R06.00 - DYSPNEA, UNSPECIFIED Qualifiers: Dyspnea type: dyspnea on exertion Qualified Code(s): R06.09 - Other forms of dyspnea (4) ESRD (end stage renal disease) Assessment/Plan: followed by renal for dialysis Code(s): N18.6 - END STAGE RENAL DISEASE (5) HLD (hyperlipidemia) Assessment/Plan: controlled c/w home medication Code(s): E78.5 - HYPERLIPIDEMIA, UNSPECIFIED Qualifiers: Hyperlipidemia type: pure hypercholesterolemia Qualified Code(s): E78.00 - Pure hypercholesterolemia, unspecified; E78.0 - Pure hypercholesterolemia (6) HTN (hypertension) Assessment/Plan: controlled c/w home medication Code(s): I10 - ESSENTIAL (PRIMARY) HYPERTENSION Qualifiers: Hypertension type: essential hypertension Qualified Code(s): I10 - Essential (primary) hypertension (7) Prostate CA Assessment/Plan: stable Code(s): C61 - MALIGNANT NEOPLASM OF PROSTATE (8) Syncope Code(s): R55 - SYNCOPE AND COLLAPSE Qualifiers: Syncope type: unspecified Qualified Code(s): R55 - Syncope and collapse (9) Hyperparathyroidism due to ESRD on dialysis Assessment/Plan: patient is being followed by renal for the ESRD Code(s): E21.3 - HYPERPARATHYROIDISM, UNSPECIFIED; N18.6 - END STAGE RENAL DISEASE; Z99.2 - DEPENDENCE ON RENAL DIALYSIS
[2017-06-07 09:06] LABS: MAGNESIUM 1.8 mg/dL (1.8-2.4)
[2017-06-07 09:12] LABS: PHOSPHOROUS 3.4 mg/dL (2.5-4.9); TROPONIN I 0.04 ng/ml (0.00-0.05)
[2017-06-07] MEDS ORDERED: FUROSEMIDE 40 MG TABLET (FP) PO SCH (10:00)
[2017-06-07] MEDS: BACITRACIN 15 GM TUBE TOPICAL OINTMENT TP SCH (10:02)
[2017-06-07] MEDS: HEPARIN NA (PORCINE) 5,000 UNITS/ML 1ML VIAL SQ SCH ×2 (10:43→21:44)
--- NOTE | 2017-06-07 11:38 | PN ---
Progress Note (short form) - Note Progress Note: RENAL case discussed with Dr Le Pt was started on hemodialysis after syncopal episode Had a CTA to rule out PE and was dialyzed last night Has a history of idiopathic membranous s/p multiple attempts at remission with immunosuppressive therapy today denies complaints Last Vital Signs Temp Pulse Resp BP Pulse Ox 98.7 F 102 H 18 126/71 98 06/07/17 06:54 06/07/17 06:54 06/07/17 06:54 06/07/17 06:54 06/07/17 09:00 lungs clear cvss 1s2 rr +nehal abd soft ext +edema neuro a+ox3 CBC, BMP 06/06/17 16:45 06/06/17 16:45 Current Medications Generic Name Dose Route Start Last Admin Trade Name Freq PRN Reason Stop Dose Admin Acetaminophen 650 mg 06/07/17 07:20 06/07/17 08:12 Tylenol - PO 650 mg Q6H PRN Administration FEVER OR PAIN Albumin Human 12.5 gm 06/07/17 05:38 Albumin Human 25% IVPB Q30M PRN FOR LOW BP DURING DIALYSIS Amlodipine Besylate 5 mg 06/07/17 10:00 Norvasc - PO DAILY [facility] Bacitracin 1 applic 06/06/17 19:00 06/07/17 10:02 Bacitracin - TP 1 applic DAILY [facility] Administration Carvedilol 6.25 mg 06/07/17 10:00 Coreg - PO DAILY [facility] Heparin Sodium (Porcine) 5,000 unit 06/07/17 10:00 06/07/17 10:43 Heparin - SQ 5,000 unit BID [facility] Administration Im unable to locate ekg IMPRESSION CKD stage 5 requiring HD for fluid overload anemia h/o idiopathic membranous PLAN will be dialyzed today continue current medications will order ekg, ?echo as well MV
[2017-06-07 14:01] LABS: MCH 30.3 pg (25.7-33.7); MCHC 32.8 g/dl (32.0-35.9); MEAN CELL VOLUME 92.5 fl (80-96); MEAN PLT VOLUME 8.8 fl (7.5-11.1); PLATELET COUNT 211 K/MM3 (134-434)
[2017-06-07 14:30] LABS: ALBUMIN 2.5 g/dl (3.4-5.0); ALK PHOS 66 U/L (45-117); ANION GAP 13 (8-16); BILIRUBIN,TOTAL 1.1 mg/dL (0.2-1.0); CALCIUM 7.2 mg/dL (8.5-10.1); CO2 20 mmol/L (21-32); CREATININE 3.5 mg/dL (0.7-1.3); GLUCOSE,RANDOM 124 mg/dL (74-106); SGOT/AST 11 U/L (15-37); SGPT/ALT 13 U/L (12-78); TOT PROT 5.5 g/dl (6.4-8.2)
--- NOTE | 2017-06-07 15:23 | EKG ---
Test Reason : Blood Pressure : / mmHG Vent. Rate : 115 BPM Atrial Rate : 079 BPM P-R Int : 000 ms QRS Dur : 066 ms QT Int : 460 ms P-R-T Axes : 000 046 047 degrees QTc Int : 636 ms BASELINE ARTIFACT SINUS TACHYCARDIA ST-T ABNORMALITIES ABNORMAL ECG WHEN COMPARED WITH ECG OF 13-JAN-2017 08:33, VENT. RATE HAS INCREASED BY 40 BPMOTHER CHANGES MENTIONED ABOVE. REPEAT EKG IF CLINICALLY INDICATED Confirmed by AAZM KAPLAN MD ([id number] on 06/07/2017 3:23:10 PM Referred By: Confirmed By:AZAM KAPLAN MD
[2017-06-07 17:26] LABS: ANION GAP 9 (8-16); CO2 28 mmol/L (21-32); CREATININE 1.7 mg/dL (0.7-1.3); GLUCOSE,RANDOM 89 mg/dL (74-106)
[2017-06-07] MEDS: amLODIPine BESYLATE 5 MG TABLET (FP) PO SCH (17:28)
[2017-06-07] MEDS: CARVEDILOL 6.25 MG TABLET (FP) PO SCH (17:28)
[2017-06-07] MEDS: ROSUVASTATIN CA 20 MG TABLET (FP) PO SCH ×2 (20:08→21:44)
[2017-06-08] MEDS ORDERED: PT OWN MED DRAWER 7, Y5N ONE ×3 (07:18→19:44)
[2017-06-08 07:19] LABS: BASOPHIL 0.6 % (0-2.0); EOSINOPHIL 0.6 % (0-4.5); MCH 30.5 pg (25.7-33.7); MCHC 33.2 g/dl (32.0-35.9); MEAN PLT VOLUME 8.4 fl (7.5-11.1); NEUTROPHILS 79.1 % (42.8-82.8); PLATELET COUNT 191 K/MM3 (134-434); RDW 14.7 % (11.9-15.9); WHITE BLOOD COUNT 8.4 K/mm3 (4.0-10.0)
[2017-06-08 08:02] LABS: ANION GAP 13 (8-16); CALCIUM 7.4 mg/dL (8.5-10.1); CO2 23 mmol/L (21-32); CREATININE 3.3 mg/dL (0.7-1.3); GLUCOSE,RANDOM 109 mg/dL (74-106)
[2017-06-08] MEDS: BACITRACIN 15 GM TUBE TOPICAL OINTMENT TP SCH (09:05)
[2017-06-08] MEDS: HEPARIN NA (PORCINE) 5,000 UNITS/ML 1ML VIAL SQ SCH ×2 (09:05→21:01)
[2017-06-08] MEDS: CARVEDILOL 6.25 MG TABLET (FP) PO SCH (09:05)
[2017-06-08] MEDS: amLODIPine BESYLATE 5 MG TABLET (FP) PO SCH (09:05)
--- NOTE | 2017-06-08 09:45 | CON.CARD ---
Cardiology Consult (text) - Consultation Consultation Note: Cardiology Consult Dictated IMP: Acute on chronic renal failure, HD initiated Volume overload secondary to progressive decline in GFR in setting of hypertensive heart disease and diastolic dysfx Abnormal ECG, non-specific T wave changes: recent negative cardiac ischemic eval (nuclear stress test) Prolonged QT probably due to hypokalemia Palpitations in setting of low grade fever yesterday Syncope on presentation REC: Ejection fraction is normal and recent nuclear stress test showed no ischemia. Suspect the palpitations were due to fever. However, in setting of hypokalemia, prolonged QT on ECG, initial syncopal episode will transfer to telemetry. Repeat echo (CT indicates pericardial effusion) Replete K+
--- NOTE | 2017-06-08 11:44 | PN ---
Progress Note, Physician - Current Medication List Current Medications: Active Medications Acetaminophen (Tylenol -) 650 mg PO Q6H PRN PRN Reason: FEVER OR PAIN Last Admin: 06/07/17 21:46 Dose: 650 mg Amlodipine Besylate (Norvasc -) 5 mg PO DAILY [facility] Last Admin: 06/08/17 09:05 Dose: 5 mg Bacitracin (Bacitracin -) 1 applic TP DAILY [facility] Last Admin: 06/08/17 09:05 Dose: 1 applic Carvedilol (Coreg -) 6.25 mg PO DAILY [facility] Last Admin: 06/08/17 09:05 Dose: 6.25 mg Heparin Sodium (Porcine) (Heparin -) 5,000 unit SQ BID [facility] Last Admin: 06/08/17 09:05 Dose: 5,000 unit Potassium Chloride (K-Dur -) 20 meq PO ONCE ONE Stop: 06/08/17 12:01 Last Admin: 06/08/17 11:06 Dose: 20 meq Potassium Chloride (K-Dur -) 20 meq PO ONCE ONE Stop: 06/08/17 13:01 Rosuvastatin Calcium (Crestor -) 20 mg PO HS [facility] Last Admin: 06/07/17 21:44 Dose: 20 mg - Objective Vital Signs: Vital Signs Temperature 99.0 F 06/08/17 09:45 Pulse Rate 99 H 06/08/17 09:45 Respiratory Rate 20 06/08/17 09:45 Blood Pressure 117/62 06/08/17 09:45 O2 Sat by Pulse Oximetry (%) 96 06/08/17 09:00 Constitutional: Yes: Well Nourished, No Distress, Calm Eyes: Yes: WNL, Conjunctiva Clear HENT: Yes: WNL, Atraumatic, Normocephalic Neck: Yes: WNL, Supple, Trachea Midline Cardiovascular: Yes: WNL, Regular Rate and Rhythm Respiratory: Yes: WNL, Regular, CTA Bilaterally Gastrointestinal: Yes: WNL, Normal Bowel Sounds, Soft Labs: CBC, BMP 06/08/17 06:42 06/08/17 06:42 Problem List - Problems (1) Anemia Assessment/Plan: patient is being followed by renal for the initiation of dialysis Code(s): D64.9 - ANEMIA, UNSPECIFIED Qualifiers: Anemia type: due to chronic kidney disease Chronic kidney disease stage: on chronic dialysis Qualified Code(s): N18.6 - End stage renal disease; D63.1 - Anemia in chronic kidney disease; D63.1 - Anemia in chronic kidney disease; Z99.2 - Dependence on renal dialysis; Z99.2 - Dependence on renal dialysis; Z99.2 - Dependence on renal dialysis; Z99.2 - Dependence on renal dialysis (2) BPH (benign prostatic hyperplasia) Assessment/Plan: stable Code(s): N40.0 - BENIGN PROSTATIC HYPERPLASIA WITHOUT LOWER URINRY TRACT SYMP Qualifiers: Lower urinary tract symptom presence: symptoms present Lower urinary tract symptom detail: urinary frequency Qualified Code(s): N40.1 - Benign prostatic hyperplasia with lower urinary tract symptoms; R35.0 - Frequency of micturition ; R35.0 - Frequency of micturition (3) Dyspnea, unspecified Assessment/Plan: resolved after dialysis obtain echocardiogram if the patient has decreased EF consult cardiology for further management Code(s): R06.00 - DYSPNEA, UNSPECIFIED Qualifiers: Dyspnea type: dyspnea on exertion Qualified Code(s): R06.09 - Other forms of dyspnea (4) ESRD (end stage renal disease) Assessment/Plan: followed by renal for dialysis Code(s): N18.6 - END STAGE RENAL DISEASE (5) HLD (hyperlipidemia) Code(s): E78.5 - HYPERLIPIDEMIA, UNSPECIFIED Qualifiers: Hyperlipidemia type: pure hypercholesterolemia Qualified Code(s): E78.00 - Pure hypercholesterolemia, unspecified; E78.0 - Pure hypercholesterolemia (6) HTN (hypertension) Assessment/Plan: c/w same management with home medication and cardiology and renal recommendation Code(s): I10 - ESSENTIAL (PRIMARY) HYPERTENSION Qualifiers: Hypertension type: essential hypertension Qualified Code(s): I10 - Essential (primary) hypertension (7) Prostate CA Assessment/Plan: stable Code(s): C61 - MALIGNANT NEOPLASM OF PROSTATE (8) Syncope Code(s): R55 - SYNCOPE AND COLLAPSE Qualifiers: Syncope type: unspecified Qualified Code(s): R55 - Syncope and collapse (9) Hyperparathyroidism due to ESRD on dialysis Assessment/Plan: patient is being followed by renal for the ESRD Code(s): E21.3 - HYPERPARATHYROIDISM, UNSPECIFIED; N18.6 - END STAGE RENAL DISEASE; Z99.2 - DEPENDENCE ON RENAL DIALYSIS
[2017-06-08] MEDS ORDERED: POTASSIUM CHLORIDE TABS 20 MEQ TABLET.ER (FP) PO ONE ×2 (12:00→13:00)
[2017-06-08 12:24] LABS: TROPONIN I 0.09 ng/ml (0.00-0.05)
--- NOTE | 2017-06-08 12:58 | PN ---
Progress Note (short form) - Note Progress Note: RENAL Pt was started on hemodialysis after syncopal episode has no complaints but has a prolonged QT and is getting K replacement Last Vital Signs Temp Pulse Resp BP Pulse Ox 99.0 F 99 H 20 117/62 96 06/08/17 09:45 06/08/17 09:45 06/08/17 09:45 06/08/17 09:45 06/08/17 09:00 lungs clear cvss 1s2 rr +nehal abd soft ext edema neuro a+ox3 Current Medications Generic Name Dose Route Start Last Admin Trade Name Freq PRN Reason Stop Dose Admin Acetaminophen 650 mg 06/07/17 07:20 06/07/17 21:46 Tylenol - PO 650 mg Q6H PRN Administration FEVER OR PAIN Amlodipine Besylate 5 mg 06/07/17 10:00 06/08/17 09:05 Norvasc - PO 5 mg DAILY [facility] Administration Bacitracin 1 applic 06/06/17 19:00 06/08/17 09:05 Bacitracin - TP 1 applic DAILY [facility] Administration Carvedilol 6.25 mg 06/07/17 10:00 06/08/17 09:05 Coreg - PO 6.25 mg DAILY [facility] Administration Heparin Sodium (Porcine) 5,000 unit 06/07/17 10:00 06/08/17 09:05 Heparin - SQ 5,000 unit BID [facility] Administration Rosuvastatin Calcium 20 mg 06/07/17 18:45 06/07/17 21:44 Crestor - PO 20 mg HS [facility] Administration CBC, BMP 06/08/17 06:42 06/08/17 06:42 Im unable to locate ekg IMPRESSION CKD stage 5 requiring HD for fluid overload anemia h/o idiopathic membranous prolonged QT PLAN agree k replacement as discussd with cardiology will be transfered to [place] can be dialyzed again in 2 days awaitig final placement at [facility] Hd unit [facility]
--- NOTE | 2017-06-08 13:05 | CONS ---
DATE OF CONSULTATION: 06/08/2017 REQUESTED BY: Audie Aldana DO The patient is a 67-year-old male, known to me from the office, with hypertension, hyperlipidemia, and chronic renal insufficiency, who was admitted several days ago with a syncopal episode, found to have volume overload, and was initiated on hemodialysis for progressive renal failure. He was in his yard, and had a syncopal episode witnessed by his . He came to the emergency department, where a CTA was performed and was negative for pulmonary embolism. He was initiated on dialysis. I am asked to see him for an abnormal EKG showing nonspecific T-wave inversions and a prolonged QT interval, which occurred in the setting of hypokalemia. Last evening, he was febrile to 100.2 and had an episode of palpitations in that setting. He denied chest pain, shortness of breath, or further syncopal symptoms. A cardiac evaluation was performed several months ago, including an echo and a nuclear stress test showing no ischemia and normal EF. Carotid ultrasound showed mild plaque, with no significant stenosis. His past medical history is significant for progressive renal failure, hypertension, and hyperlipidemia. He has no allergies. His current medications include Tylenol p.r.n., Norvasc 5 mg daily, carvedilol 6.25 b.i.d., Crestor, and subcutaneous heparin for DVT prophylaxis. SOCIAL HISTORY: Former smoker. Lives with . FAMILY HISTORY: Noncontributory. PHYSICAL EXAMINATION: Vital Signs: Temperature 99, blood pressure 117/62, O2 saturation 96 on 2 L. Neck: No bruits. Heart: S1, 2. Regular. Abdomen: Soft, nontender. Extremities: No edema. His EKG is referred to in the HPI. LABORATORY DATA: Potassium 3.2, creatinine 3.3. BNP markedly elevated at 17,000. CBC: Hemoglobin 8.6, otherwise normal. CT scan showed no pulmonary embolism, possible small pericardial effusion, and bilateral pleural effusions. IMPRESSION: 1. A 67-year-old male admitted for syncopal episode in the setting of volume overload due to progressive renal failure, chronic diastolic dysfunction. 2. Hypokalemia. 3. Abnormal EKG, showing nonspecific Q wave changes and prolonged QT. 4. Pericardial effusion. PLAN: His palpitations which occurred yesterday are probably due to fever/infection. He should be cultured. However, in the setting of prolonged QT and hypokalemia, the patient should be monitored on telemetry. A repeat echocardiogram will be obtained to evaluate the pericardial effusion. Please correct his electrolytes disturbance. Recent cardiac workup has shown normal EF and no ischemia. No further diagnostic studies apart from the repeat echocardiogram will be obtained. Thank you for the consultation. KELVIN NO M.D. [id number]
[2017-06-08] MEDS: ASPIRIN 81 MG CHEWABLE TABLETS PO SCH (13:20)
--- NOTE | 2017-06-08 14:58 | EKG ---
Test Reason : Blood Pressure : / mmHG Vent. Rate : 097 BPM Atrial Rate : 097 BPM P-R Int : 144 ms QRS Dur : 066 ms QT Int : 390 ms P-R-T Axes : 069 058 008 degrees QTc Int : 495 ms SINUS RHYTHM WITH PREMATURE ATRIAL COMPLEXES LOW VOLTAGE QRS PROLONGED QT ABNORMAL ECG WHEN COMPARED WITH ECG OF 06-JUN-2017 17:13, ATRIAL PREMATURE BEATS ARE NOW PRESENT ST-T ABNORMALITIES ARE MORE PRONOUNCED IN V2-V4 AND T WAVE INVERSION IN LEAD III. CLINICAL CORRELATION IS RECOMMENDED AND REPEAT EKG Confirmed by AZAM KAPLAN MD ([id number]) on 06/08/2017 2:57:29 PM Referred By: Confirmed By:AZAM KAPLAN MD
[2017-06-08] MEDS: ROSUVASTATIN CA 20 MG TABLET (FP) PO SCH (21:01)
[2017-06-09 07:37] LABS: BASOPHIL 0.5 % (0-2.0); EOSINOPHIL 1.1 % (0-4.5); MCH 30.4 pg (25.7-33.7); MEAN CELL VOLUME 92.1 fl (80-96); MEAN PLT VOLUME 9.2 fl (7.5-11.1); PLATELET COUNT 187 K/MM3 (134-434); RDW 14.7 % (11.9-15.9); WHITE BLOOD COUNT 7.9 K/mm3 (4.0-10.0)
[2017-06-09 08:10] LABS: ALBUMIN 2.4 g/dl (3.4-5.0); ANION GAP 11 (8-16); BILIRUBIN,TOTAL 1.2 mg/dL (0.2-1.0); CALCIUM 7.3 mg/dL (8.5-10.1); CO2 24 mmol/L (21-32); CREATININE 4.2 mg/dL (0.7-1.3); GLUCOSE,RANDOM 94 mg/dL (74-106); MAGNESIUM 2.2 mg/dL (1.8-2.4); SGOT/AST 12 U/L (15-37); SGPT/ALT 14 U/L (12-78); TOT PROT 5.1 g/dl (6.4-8.2)
[2017-06-09 08:11] LABS: ALK PHOS 56 U/L (45-117)
[2017-06-09] MEDS: HEPARIN NA (PORCINE) 5,000 UNITS/ML 1ML VIAL SQ SCH ×2 (10:47→22:10)
[2017-06-09] MEDS: CARVEDILOL 6.25 MG TABLET (FP) PO SCH (10:47)
[2017-06-09] MEDS: ASPIRIN 81 MG CHEWABLE TABLETS PO SCH (10:47)
[2017-06-09] MEDS: BACITRACIN 15 GM TUBE TOPICAL OINTMENT TP SCH (10:47)
[2017-06-09] MEDS: amLODIPine BESYLATE 5 MG TABLET (FP) PO SCH (11:03)
--- NOTE | 2017-06-09 11:18 | PN ---
Progress Note, Physician History of Present Illness: pt seen and examined today in nad. son at bedside. no overnight events. no new complaints. holter monitor in place, no tele bed yet available. - Current Medication List Current Medications: Active Medications Acetaminophen (Tylenol -) 650 mg PO Q6H PRN PRN Reason: FEVER OR PAIN Last Admin: 06/07/17 21:46 Dose: 650 mg Amlodipine Besylate (Norvasc -) 5 mg PO DAILY [facility] Last Admin: 06/09/17 11:03 Dose: 5 mg Aspirin (Asa -) 81 mg PO DAILY [facility] Last Admin: 06/09/17 10:47 Dose: 81 mg Bacitracin (Bacitracin -) 1 applic TP DAILY [facility] Last Admin: 06/09/17 10:47 Dose: 1 applic Carvedilol (Coreg -) 6.25 mg PO DAILY [facility] Last Admin: 06/09/17 10:47 Dose: 6.25 mg Heparin Sodium (Porcine) (Heparin -) 5,000 unit SQ BID [facility] Last Admin: 06/09/17 10:47 Dose: 5,000 unit Rosuvastatin Calcium (Crestor -) 20 mg PO HS [facility] Last Admin: 06/08/17 21:01 Dose: 20 mg - Objective Vital Signs: Vital Signs Temperature 98.7 F 06/09/17 10:00 Pulse Rate 89 06/09/17 10:00 Respiratory Rate 18 06/09/17 10:00 Blood Pressure 107/89 06/09/17 10:00 O2 Sat by Pulse Oximetry (%) 96 06/08/17 22:00 Constitutional: Yes: No Distress, Calm Eyes: Yes: Conjunctiva Clear, EOM Intact, PERRL HENT: Yes: Atraumatic, Normocephalic Neck: Yes: Supple, Trachea Midline Cardiovascular: Yes: Regular Rate and Rhythm, S1, S2. No: Bradycardia, Tachycardia, Pulse Irregular, Bruit, JVD, Gallop, Murmur, Rub, S3, S4, Varicosities Respiratory: Yes: Regular, CTA Bilaterally. No: Rales, Rhonchi, Wheezes Gastrointestinal: Yes: Normal Bowel Sounds, Soft. No: Distention, Tenderness Edema: No Peripheral Pulses WNL: Yes Neurological: Yes: Alert, Oriented Psychiatric: Yes: Alert, Oriented Labs: CBC, BMP 06/09/17 05:15 06/09/17 05:15 - ....Imaging Chest X-ray: Report Reviewed, Image Reviewed EKG: Report Reviewed, Image Reviewed Other: Report Reviewed, Image Reviewed Assessment/Plan IMP: Acute on chronic renal failure, started on HD Volume overload secondary to progressive decline in GFR in setting of hypertensive heart disease and diastolic dysfx Abnormal ECG, non-specific T wave changes: recent negative cardiac ischemic eval (nuclear stress test) Prolonged QT probably due to hypokalemia Palpitations in setting of low grade fever Syncope on presentation REC: Ejection fraction is normal and recent nuclear stress test showed no ischemia. Suspect the palpitations were due to fever. Given hypokalemia, prolonged QT on ECG, syncopal episode plan yesterday was transfer to telemetry, as there was no tele beds available, holter monitor was placed and will be completed today Repeat echo was ordered as CT reported a small pericardial effusion Replete K+
--- NOTE | 2017-06-09 12:36 | PN ---
Progress Note, Physician Chief Complaint: Mr Krishnamurthy says he is doing better. No longer with shortness of breath. Denies cp or n/v. - Current Medication List Current Medications: Active Medications Acetaminophen (Tylenol -) 650 mg PO Q6H PRN PRN Reason: FEVER OR PAIN Last Admin: 06/07/17 21:46 Dose: 650 mg Amlodipine Besylate (Norvasc -) 5 mg PO DAILY [facility] Last Admin: 06/09/17 11:03 Dose: 5 mg Aspirin (Asa -) 81 mg PO DAILY [facility] Last Admin: 06/09/17 10:47 Dose: 81 mg Bacitracin (Bacitracin -) 1 applic TP DAILY [facility] Last Admin: 06/09/17 10:47 Dose: 1 applic Carvedilol (Coreg -) 6.25 mg PO DAILY [facility] Last Admin: 06/09/17 10:47 Dose: 6.25 mg Heparin Sodium (Porcine) (Heparin -) 5,000 unit SQ BID [facility] Last Admin: 06/09/17 10:47 Dose: 5,000 unit Rosuvastatin Calcium (Crestor -) 20 mg PO HS [facility] Last Admin: 06/08/17 21:01 Dose: 20 mg - Objective Vital Signs: Vital Signs Temperature 37.1 C 06/09/17 10:00 Pulse Rate 89 06/09/17 10:00 Respiratory Rate 18 06/09/17 10:00 Blood Pressure 107/89 06/09/17 10:00 O2 Sat by Pulse Oximetry (%) 96 06/08/17 22:00 Constitutional: Yes: Well Nourished, No Distress, Calm Cardiovascular: Yes: Regular Rate and Rhythm. No: Gallop, Murmur, Rub Respiratory: Yes: Regular, CTA Bilaterally, On Nasal O2. No: Rales, Rhonchi, Wheezes Gastrointestinal: Yes: Normal Bowel Sounds, Soft. No: Distention, Tenderness Extremities: Yes: WNL Edema: No Labs: CBC, BMP 06/09/17 05:15 06/09/17 05:15 Problem List - Problems (1) CHF (congestive heart failure) Assessment/Plan: -appreciate cardiology assistance -ECHO ordered, awaiting read -continue diuresis with HD Code(s): I50.9 - HEART FAILURE, UNSPECIFIED Qualifiers: Congestive heart failure type: unspecified congestive heart failure type (2) Anemia Assessment/Plan: -secondary to ESRD -monitor, no current need for transfusion Code(s): D64.9 - ANEMIA, UNSPECIFIED Qualifiers: Anemia type: due to chronic kidney disease Chronic kidney disease stage: on chronic dialysis Qualified Code(s): N18.6 - End stage renal disease; D63.1 - Anemia in chronic kidney disease; D63.1 - Anemia in chronic kidney disease; Z99.2 - Dependence on renal dialysis; Z99.2 - Dependence on renal dialysis; Z99.2 - Dependence on renal dialysis; Z99.2 - Dependence on renal dialysis (3) ESRD (end stage renal disease) Assessment/Plan: -case d/w nephrology -continue HD tomorrow -possible discharge Wed if outpatient HD established Code(s): N18.6 - END STAGE RENAL DISEASE (4) HLD (hyperlipidemia) Assessment/Plan: -continue crestor Code(s): E78.5 - HYPERLIPIDEMIA, UNSPECIFIED Qualifiers: Hyperlipidemia type: pure hypercholesterolemia Qualified Code(s): E78.00 - Pure hypercholesterolemia, unspecified; E78.0 - Pure hypercholesterolemia (5) HTN (hypertension) Assessment/Plan: -continue coreg and norvasc Code(s): I10 - ESSENTIAL (PRIMARY) HYPERTENSION Qualifiers: Hypertension type: essential hypertension Qualified Code(s): I10 - Essential (primary) hypertension (6) Hypokalemia Assessment/Plan: -liberalize potassium in diet Code(s): E87.6 - HYPOKALEMIA
--- NOTE | 2017-06-09 15:51 | PN ---
Progress Note, Physician History of Present Illness: Pt seen and examined at bedside. He feels that his breathing is improving. He denies chest pain. - Current Medication List Current Medications: Active Medications Acetaminophen (Tylenol -) 650 mg PO Q6H PRN PRN Reason: FEVER OR PAIN Last Admin: 06/07/17 21:46 Dose: 650 mg Amlodipine Besylate (Norvasc -) 5 mg PO DAILY [facility] Last Admin: 06/09/17 11:03 Dose: 5 mg Aspirin (Asa -) 81 mg PO DAILY [facility] Last Admin: 06/09/17 10:47 Dose: 81 mg Bacitracin (Bacitracin -) 1 applic TP DAILY [facility] Last Admin: 06/09/17 10:47 Dose: 1 applic Carvedilol (Coreg -) 6.25 mg PO DAILY [facility] Last Admin: 06/09/17 10:47 Dose: 6.25 mg Heparin Sodium (Porcine) (Heparin -) 5,000 unit SQ BID [facility] Last Admin: 06/09/17 10:47 Dose: 5,000 unit Rosuvastatin Calcium (Crestor -) 20 mg PO HS [facility] Last Admin: 06/08/17 21:01 Dose: 20 mg - Objective Vital Signs: Vital Signs Temperature 97.9 F 06/09/17 15:30 Pulse Rate 89 06/09/17 15:30 Respiratory Rate 18 06/09/17 15:30 Blood Pressure 104/64 06/09/17 15:30 O2 Sat by Pulse Oximetry (%) 96 06/09/17 15:30 Constitutional: Yes: Calm Eyes: Yes: Conjunctiva Clear HENT: Yes: Atraumatic Neck: Yes: Supple Cardiovascular: Yes: Murmur, S1, S2 Respiratory: Yes: On Nasal O2 Gastrointestinal: Yes: Soft Genitourinary: Yes: WNL Musculoskeletal: Yes: WNL Extremities: Yes: Other (left arm fistula with thrill and bruit) Edema: LLE: Trace, RLE: Trace Neurological: Yes: Oriented Psychiatric: Yes: Oriented Labs: CBC, BMP 06/09/17 05:15 06/09/17 05:15 Problem List - Problems (1) Anemia Code(s): D64.9 - ANEMIA, UNSPECIFIED Qualifiers: Anemia type: due to chronic kidney disease Chronic kidney disease stage: on chronic dialysis Qualified Code(s): N18.6 - End stage renal disease; D63.1 - Anemia in chronic kidney disease; D63.1 - Anemia in chronic kidney disease; Z99.2 - Dependence on renal dialysis; Z99.2 - Dependence on renal dialysis; Z99.2 - Dependence on renal dialysis; Z99.2 - Dependence on renal dialysis (2) CHF (congestive heart failure) Code(s): I50.9 - HEART FAILURE, UNSPECIFIED Qualifiers: Congestive heart failure type: unspecified congestive heart failure type (3) CKD (chronic kidney disease) stage 5, GFR less than 15 ml/min Code(s): N18.5 - CHRONIC KIDNEY DISEASE, STAGE 5 (4) ESRD (end stage renal disease) Code(s): N18.6 - END STAGE RENAL DISEASE Assessment/Plan Current Medications Generic Name Dose Route Start Last Admin Trade Name Freq PRN Reason Stop Dose Admin Acetaminophen 650 mg 06/07/17 07:20 06/07/17 21:46 Tylenol - PO 650 mg Q6H PRN Administration FEVER OR PAIN Amlodipine Besylate 5 mg 06/07/17 10:00 06/09/17 11:03 Norvasc - PO 5 mg DAILY [facility] Administration Aspirin 81 mg 06/08/17 13:15 06/09/17 10:47 Asa - PO 81 mg DAILY [facility] Administration Bacitracin 1 applic 06/06/17 19:00 06/09/17 10:47 Bacitracin - TP 1 applic DAILY [facility] Administration Carvedilol 6.25 mg 06/07/17 10:00 06/09/17 10:47 Coreg - PO 6.25 mg DAILY [facility] Administration Heparin Sodium (Porcine) 5,000 unit 06/07/17 10:00 06/09/17 10:47 Heparin - SQ 5,000 unit BID [facility] Administration Rosuvastatin Calcium 20 mg 06/07/17 18:45 06/08/17 21:01 Crestor - PO 20 mg HS [facility] Administration Impression 1. ESRD 2. CHF 3. anemia 4. HTN 5. hyperlipidemia Plan - will arrange for HD in am - will use 3 k bath - check mag level - repeat labs in am - discussed with medical attending - will follow - hep status pending - check iron studies Dr Mackenzie
--- NOTE | 2017-06-09 17:20 | HOL ---
Hook-up date: 2017-06-08 11:10:00 Duration: 23:41:00 Test Indications: Medications: 950756 QRS complexes 40 Ventricular ectopics which represent <1 % of total QRS comp. 726 Supraventricular ectopics which represent <1 % of total QRS comp. * Paced QRS complexs which represent % of total QRS comp. * % of Time Classified as Noise VENTRICULAR ECTOPY 40 Isolated 0 Bigeminal Cycles 0 Couplets 0 Runs 0 Beats in Runs * Beats LONGEST at * BPM at :: -- * Beats FASTEST at * BPM at :: -- SUPRAVENTRICULAR ECTOPY 722 Isolated 2 Couplets 0 Runs 0 Beats in Runs * Beats LONGEST at * BPM at :: -- * Beats FASTEST at * BPM at :: -- HEART RATES 81 MIN at 22:33:54 2017-06-08 93 AVG 115 MAX at 16:06:38 2017-06-08 LONGEST RR 0.816 secs at 03:50:47 2017-06-09 SCANNED ON 06/09/17 BY LION RODRIGUES 1. BASELINE RHYTHM APPEARS SINUS RHYTHM WITH AVERAGE HR OF 93 BPM. RATES VARIED FROM 81 TO 115 BPM 2. OCCASIONAL VENTRICULAR ECTOPIES INCLUDING 40 BEATS OF PREMATURE VENTRICULAR COMPLEXES 3. OCCASIONAL ATRIAL ECTOPIES INCLUDING 722 PREMATURE ATRIAL COMPLEXES AND 2 COUPLETS 4. NONSPECIFIC T WAVE ABNORMALITIES ARE SEEN 5. DIARY WAS NOT SUBMITTED Confirmed by VENKAT HENRY, ROOSEVELT ([id number]) on 06/09/2017 5:20:20 PM Referred By: ONEAL WARREN DR Overread By: ROOSEVELT ROBLEDO MD
[2017-06-09] MEDS: ROSUVASTATIN CA 20 MG TABLET (FP) PO SCH (22:10)
[2017-06-10 07:19] LABS: BASOPHIL 0.7 % (0-2.0); EOSINOPHIL 1.5 % (0-4.5); MCH 30.3 pg (25.7-33.7); MCHC 32.7 g/dl (32.0-35.9); MEAN CELL VOLUME 92.7 fl (80-96); MEAN PLT VOLUME 8.9 fl (7.5-11.1); NEUTROPHILS 75.7 % (42.8-82.8); PLATELET COUNT 194 K/MM3 (134-434); RDW 14.7 % (11.9-15.9); WHITE BLOOD COUNT 6.9 K/mm3 (4.0-10.0)
[2017-06-10 08:14] LABS: ANION GAP 14 (8-16); CALCIUM 7.1 mg/dL (8.5-10.1); CO2 22 mmol/L (21-32); CREATININE 4.5 mg/dL (0.7-1.3); GLUCOSE,RANDOM 91 mg/dL (74-106); MAGNESIUM 2.1 mg/dL (1.8-2.4); PHOSPHOROUS 4.7 mg/dL (2.5-4.9)
--- NOTE | 2017-06-10 09:22 | PN ---
Progress Note, Physician Chief Complaint: c/o pain atop both shoulders when he walks short distances Says it has been going on for several months actually - Current Medication List Current Medications: Active Medications Acetaminophen (Tylenol -) 650 mg PO Q6H PRN PRN Reason: FEVER OR PAIN Last Admin: 06/07/17 21:46 Dose: 650 mg Amlodipine Besylate (Norvasc -) 5 mg PO DAILY [facility] Last Admin: 06/09/17 11:03 Dose: 5 mg Aspirin (Asa -) 81 mg PO DAILY [facility] Last Admin: 06/09/17 10:47 Dose: 81 mg Bacitracin (Bacitracin -) 1 applic TP DAILY [facility] Last Admin: 06/09/17 10:47 Dose: 1 applic Carvedilol (Coreg -) 6.25 mg PO DAILY [facility] Last Admin: 06/09/17 10:47 Dose: 6.25 mg Epoetin Sam (Epogen -) 4,000 units IVPUSH ONCE ONE Stop: 06/10/17 15:52 Heparin Sodium (Porcine) (Heparin -) 5,000 unit SQ BID [facility] Last Admin: 06/09/17 22:10 Dose: 5,000 unit Rosuvastatin Calcium (Crestor -) 20 mg PO HS [facility] Last Admin: 06/09/17 22:10 Dose: 20 mg - Objective Vital Signs: Vital Signs Temperature 99.0 F 06/10/17 05:50 Pulse Rate 82 06/10/17 05:50 Respiratory Rate 18 06/10/17 05:50 Blood Pressure 108/64 06/10/17 05:50 O2 Sat by Pulse Oximetry (%) 92 L 06/09/17 21:00 Constitutional: Yes: No Distress Cardiovascular: Yes: Regular Rate and Rhythm Respiratory: Yes: CTA Bilaterally Gastrointestinal: Yes: Soft Edema: No Neurological: Yes: Alert, Oriented ...Motor Strength: WNL Labs: CBC, BMP 06/10/17 06:00 06/10/17 06:00 - ....Imaging EKG: Image Reviewed (TELE: NSR), Other (ECG nsr 92bpm, TWI V2-V3) Assessment/Plan IMP: Acute on chronic renal failure, started on HD Volume overload secondary to progressive decline in GFR in setting of hypertensive heart disease and diastolic dysfx Abnormal ECG, non-specific T wave changes: recent negative cardiac ischemic eval (nuclear stress test) Prolonged QT probably due to hypokalemia Palpitations in setting of low grade fever Syncope on presentation REC: Patient's ECG remains markedly abnormal with anterior TWI and prolonged QT, K+ is only mildly low. Today, he disclosed that he is having pain in both shoulder blades when he walks small distances, and it has been going on for several months raising the concern for progressive angina with ECG changes due to ischemia. In light of additional history and abnormal ECG, have recommended cath to define coronary anatomy. He has agreed; plan d/w medical and renal team. The hilar adenopathy can be further evaluated as outpatient.
[2017-06-10] MEDS: HEPARIN NA (PORCINE) 5,000 UNITS/ML 1ML VIAL SQ SCH (09:29)
[2017-06-10] MEDS: amLODIPine BESYLATE 5 MG TABLET (FP) PO SCH (09:29)
[2017-06-10] MEDS: ASPIRIN 81 MG CHEWABLE TABLETS PO SCH (09:29)
[2017-06-10] MEDS: CARVEDILOL 6.25 MG TABLET (FP) PO SCH (09:29)
[2017-06-10] MEDS: BACITRACIN 15 GM TUBE TOPICAL OINTMENT TP SCH (09:33)
--- NOTE | 2017-06-10 10:45 | EKG ---
Test Reason : Blood Pressure : / mmHG Vent. Rate : 092 BPM Atrial Rate : 092 BPM P-R Int : 148 ms QRS Dur : 074 ms QT Int : 388 ms P-R-T Axes : 072 067 -10 degrees QTc Int : 479 ms NORMAL SINUS RHYTHM LOW VOLTAGE QRS PERSISTENT ST-T ABNORMALITIES IN V1 TO V4 PROLONGED QT ABNORMAL ECG WHEN COMPARED WITH ECG OF 08-JUN-2017 09:58, PREMATURE ATRIAL COMPLEXES ARE NO LONGER PRESENT Confirmed by AZAM KAPLAN MD ([id number]) on 06/10/2017 10:44:35 AM Referred By: Confirmed By:AZAM KAPLAN MD
--- NOTE | 2017-06-10 12:23 | DS ---
Physical Examination Vital Signs: Vital Signs Temperature 36.8 C 06/10/17 10:00 Pulse Rate 93 H 06/10/17 10:00 Respiratory Rate 18 06/10/17 10:00 Blood Pressure 123/67 06/10/17 10:00 O2 Sat by Pulse Oximetry (%) 94 L 06/10/17 09:00 Constitutional: Yes: Well Nourished, No Distress, Calm Cardiovascular: Yes: Regular Rate and Rhythm. No: Gallop, Murmur, Rub Respiratory: Yes: Regular, CTA Bilaterally. No: Rales, Rhonchi, Wheezes Gastrointestinal: Yes: Normal Bowel Sounds, Soft. 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 (Acute) Hypokalemia (Acute) Prostate CA (Acute) Syncope (Acute) Hospital Course: (1) CHF (congestive heart failure) Code(s): I50.9 - HEART FAILURE, UNSPECIFIED Qualifiers: Congestive heart failure type: unspecified congestive heart failure type (2) Anemia Code(s): D64.9 - ANEMIA, UNSPECIFIED Qualifiers: Anemia type: due to chronic kidney disease Chronic kidney disease stage: on chronic dialysis Qualified Code(s): N18.6 - End stage renal disease; D63.1 - Anemia in chronic kidney disease; D63.1 - Anemia in chronic kidney disease; Z99.2 - Dependence on renal dialysis; Z99.2 - Dependence on renal dialysis; Z99.2 - Dependence on renal dialysis; Z99.2 - Dependence on renal dialysis (3) ESRD (end stage renal disease) Code(s): N18.6 - END STAGE RENAL DISEASE (4) HLD (hyperlipidemia) Code(s): E78.5 - HYPERLIPIDEMIA, UNSPECIFIED Qualifiers: Hyperlipidemia type: pure hypercholesterolemia Qualified Code(s): E78.00 - Pure hypercholesterolemia, unspecified; E78.0 - Pure hypercholesterolemia (5) HTN (hypertension) Code(s): I10 - ESSENTIAL (PRIMARY) HYPERTENSION Qualifiers: Hypertension type: essential hypertension Qualified Code(s): I10 - Essential (primary) hypertension (6) Hypokalemia Code(s): E87.6 - HYPOKALEMIA (7) Unstable angina Mr Krishnamurthy is a very pleasant 67 year old male who came in with CHF exacerbation and ESRD requiring HD. He was admitted to the hospital and diuresed. He tolerated this well and was much improved, however he was having bilateral shoulder pain with leg numbness with minimal exertion. He was seen by cardiology and felt this needed to be further investigated with cardiac catheterization secondary to concern for 3v or left main disease. He is stable for transfer for cardiac catheterization 32 minutes spent in preparation of this discharge - Instructions Referrals: Vinny Hamm MD [Primary Care Provider] - - Home Medications Comprehensive Discharge Medication List: Ambulatory Orders Amlodipine Besylate [Norvasc -] 1 tab PO DAILY 11/08/13 Alfuzosin HCl [Uroxatral] 10 mg PO DAILY 01/22/17 Losartan Potassium 100 mg PO DAILY 01/22/17 Rosuvastatin Calcium [Crestor] 20 mg PO DAILY 01/22/17 Carvedilol 6.25 mg PO DAILY 06/06/17 Furosemide [Lasix] 40 mg PO DAILY 06/06/17 Lidocaine [Anecream5] 30 gm TP DAILY 06/06/17
[2017-06-10] MEDS ORDERED: POLYETHYLENE GLYCOL 3350 119 GM BTL PO ONE (13:45)
[2017-06-10] MEDS ORDERED: DOCUSATE SODIUM 100 MG CAPSULE (FP) PO ONE (13:45)
[2017-06-10 15:00] VITALS: TEMP 97.7
[2017-06-10] MEDS ORDERED: POTASSIUM CHLORIDE TABS 20 MEQ TABLET.ER (FP) PO ONE (15:30)
[2017-06-10] MEDS ORDERED: EPOETIN ALFA 2,000 UNITS/1 ML VIAL IVPUSH ONE (15:51)
--- NOTE | 2017-06-10 16:13 | PN ---
Progress Note, Physician History of Present Illness: Pt seen and examined at bedside. He is awake and alert. He is being transferred to [facility] today. He denies shortness of breath. - Current Medication List Current Medications: Active Medications Acetaminophen (Tylenol -) 650 mg PO Q6H PRN PRN Reason: FEVER OR PAIN Last Admin: 06/07/17 21:46 Dose: 650 mg Amlodipine Besylate (Norvasc -) 5 mg PO DAILY [facility] Last Admin: 06/10/17 09:29 Dose: 5 mg Aspirin (Asa -) 81 mg PO DAILY [facility] Last Admin: 06/10/17 09:29 Dose: 81 mg Bacitracin (Bacitracin -) 1 applic TP DAILY [facility] Last Admin: 06/10/17 09:33 Dose: 1 applic Carvedilol (Coreg -) 6.25 mg PO DAILY [facility] Last Admin: 06/10/17 09:29 Dose: 6.25 mg Epoetin Sam (Epogen -) 4,000 units IVPUSH ONCE ONE Stop: 06/10/17 15:52 Heparin Sodium (Porcine) (Heparin -) 5,000 unit SQ BID [facility] Last Admin: 06/10/17 09:29 Dose: 5,000 unit Rosuvastatin Calcium (Crestor -) 20 mg PO HS [facility] Last Admin: 06/09/17 22:10 Dose: 20 mg - Objective Vital Signs: Vital Signs Temperature 97.7 F 06/10/17 14:59 Pulse Rate 82 06/10/17 14:59 Respiratory Rate 21 06/10/17 14:59 Blood Pressure 109/66 06/10/17 14:59 O2 Sat by Pulse Oximetry (%) 94 L 06/10/17 09:00 Constitutional: Yes: Calm Eyes: Yes: Conjunctiva Clear HENT: Yes: Atraumatic Neck: Yes: Supple Cardiovascular: Yes: S1, S2 Respiratory: Yes: CTA Bilaterally, On Nasal O2 Gastrointestinal: Yes: Soft Genitourinary: Yes: WNL Musculoskeletal: Yes: WNL Extremities: Yes: Other (fistula with thrill and bruit) Edema: No Neurological: Yes: Oriented Psychiatric: Yes: Oriented Labs: CBC, BMP 06/10/17 06:00 06/10/17 06:00 Problem List - Problems (1) Anemia Code(s): D64.9 - ANEMIA, UNSPECIFIED Qualifiers: Anemia type: due to chronic kidney disease Chronic kidney disease stage: on chronic dialysis Qualified Code(s): N18.6 - End stage renal disease; D63.1 - Anemia in chronic kidney disease; D63.1 - Anemia in chronic kidney disease; Z99.2 - Dependence on renal dialysis; Z99.2 - Dependence on renal dialysis; Z99.2 - Dependence on renal dialysis; Z99.2 - Dependence on renal dialysis (2) CHF (congestive heart failure) Code(s): I50.9 - HEART FAILURE, UNSPECIFIED Qualifiers: Congestive heart failure type: unspecified congestive heart failure type (3) CKD (chronic kidney disease) stage 5, GFR less than 15 ml/min Code(s): N18.5 - CHRONIC KIDNEY DISEASE, STAGE 5 (4) ESRD (end stage renal disease) Code(s): N18.6 - END STAGE RENAL DISEASE Assessment/Plan Current Medications Generic Name Dose Route Start Last Admin Trade Name Freq PRN Reason Stop Dose Admin Acetaminophen 650 mg 06/07/17 07:20 06/07/17 21:46 Tylenol - PO 650 mg Q6H PRN Administration FEVER OR PAIN Amlodipine Besylate 5 mg 06/07/17 10:00 06/10/17 09:29 Norvasc - PO 5 mg DAILY [facility] Administration Aspirin 81 mg 06/08/17 13:15 06/10/17 09:29 Asa - PO 81 mg DAILY [facility] Administration Bacitracin 1 applic 06/06/17 19:00 06/10/17 09:33 Bacitracin - TP 1 applic DAILY [facility] Administration Carvedilol 6.25 mg 06/07/17 10:00 06/10/17 09:29 Coreg - PO 6.25 mg DAILY [facility] Administration Epoetin Sam 4,000 units 06/10/17 15:51 Epogen - IVPUSH 06/10/17 15:52 ONCE ONE Heparin Sodium (Porcine) 5,000 unit 06/07/17 10:00 06/10/17 09:29 Heparin - SQ 5,000 unit BID [facility] Administration Rosuvastatin Calcium 20 mg 06/07/17 18:45 06/09/17 22:10 Crestor - PO 20 mg HS [facility] Administration Laboratory Tests 06/09/17 11:10 Hepatitis A Ab Total Pending Hep Bs Antigen Pending Hep Bs Antibody Pending Hep B Core Total Ab Pending Hepatitis C Antibody 0.1 Laboratory Tests 06/10/17 06:00 Magnesium 2.1 Impression 1. ESRD 2. CHF 3. anemia 4. HTN 5. hyperlipidemia 6. hypokalemia Plan - HD today - discussed with cardiology, pt is going to [facility], they agree with HD today - replace potassium - will need info to be faxed to [facility] to set up HD - will follow - hep status pending Dr Mackenzie
[2017-06-10 17:01] VITALS: PULSE 80
[2017-06-10 21:11] VITALS: BP 131/77
== END 2017-06-10 20:36 | disposition short-term general hospital (02) | DRG 291 ==
LOC: JER 16:10 → JERBED 19:29 → J5S 20:15 → J4S 06-09 15:04
PROVIDERS: ADMIT Internal Medicine; ATTEND Internal Medicine
PROC: 5A1D70Z Performance of Urinary Filtration, Intermittent, Less than 6 Hours Per Day (ICD-10-PCS; principal; 2017-06-06)
DX: I13.2 Hypertensive heart and chronic kidney disease with heart failure and with stage 5 chronic kidney disease, or end stage renal disease (principal); N18.6 End stage renal disease; K63.5 Polyp of colon; K21.9 Gastro-esophageal reflux disease without esophagitis; K57.90 Diverticulosis of intestine, part unspecified, without perforation or abscess without bleeding; D36.7 Benign neoplasm of other specified sites; E78.00 Pure hypercholesterolemia, unspecified; D63.1 Anemia in chronic kidney disease; N40.0 Benign prostatic hyperplasia without lower urinary tract symptoms; E05.20 Thyrotoxicosis with toxic multinodular goiter without thyrotoxic crisis or storm; Z87.891 Personal history of nicotine dependence; R55 Syncope and collapse; I45.81 Long QT syndrome; E87.6 Hypokalemia; I20.0 Unstable angina; R00.2 Palpitations; R06.09 Other forms of dyspnea; Z85.46 Personal history of malignant neoplasm of prostate; Z99.2 Dependence on renal dialysis
CPT/HCPCS: 36415; 70450-TC; 71010-TC; 71275-TC; 80048; 80053; 81003; 81015; 82550; 83735; 83880; 84100; 84484; 85025; 85027; 85730; 86704; 86706; 86708; 86803; 86850; 86900; 86901; 87040; 87340; 90715; 93005; 93010; 93225; 93226; 93306-TC; 99285-25; J0885; J1644

== ENCOUNTER 2017-11-10 14:35 | Observation (INO) | payer OTHER, BC ==
--- NOTE | 2017-11-10 15:06 | PDOC ---
History of Present Illness - General Chief Complaint: Shortness of Breath Stated Complaint: DIFFICULTY BREATHING Time Seen by Provider: 11/10/17 14:51 History Source: Patient - History of Present Illness Initial Comments: 11/10/17 15:06 67 y/o man with a past medical history of Stage 5 CKD on HD Mon/Fri/Fri, Pulmonary hypertension on 3L O2 at home, HTN, HLD, Prostate Ca (no Rx, 01/2017), Hyperparathyroidism, GERD, BPH presents to the ED after completing dialysis today feeling severely short of breath and on the verge of passing out. His O2 saturation was 72%. He admits that he always gets short of breath whenever he's not using his O2 which he wasn't for an extended period of time today. He was seen by Gurdeep Zuniga and Daron the last time for the same symptoms where PE was ruled out started on dialysis. 11/10/17 15:50 Past History - Past Medical History Allergies/Adverse Reactions: Allergies Allergy/AdvReac Type Severity Reaction Status Date / Time No Known Allergies Allergy Verified 11/10/17 14:48 Home Medications: Ambulatory Orders Amlodipine Besylate [Norvasc -] 1 tab PO DAILY 11/08/13 Alfuzosin HCl [Uroxatral] 10 mg PO DAILY 01/22/17 Losartan Potassium 100 mg PO DAILY 01/22/17 Rosuvastatin Calcium [Crestor] 20 mg PO DAILY 01/22/17 Carvedilol 6.25 mg PO DAILY 06/06/17 Furosemide [Lasix] 40 mg PO DAILY 06/06/17 Lidocaine [Anecream5] 30 gm TP DAILY 06/06/17 Anemia: No Asthma: No Cancer: No Cardiac Disorders: No CVA: No COPD: No CHF: No Dementia: No Diabetes: No Dialysis: Yes (M, W, F) GI Disorders: Yes (COLON POLYPS,HEMORROIDS;GERD; DIVERTICULOSIS;TUBULAR ADENOMA X 3) Disorders: No HTN: No Hypercholesterolemia: Yes Liver Disease: No Seizures: No Thyroid Disease: No - Surgical History Abdominal Surgery: No Appendectomy: No Cardiac Surgery: No Cholecystectomy: No Lung Surgery: No Neurologic Surgery: No Orthopedic Surgery: No - Immunization History Immunization Up to Date: Yes - Suicide/Smoking/Psychosocial Hx Smoking History: Former smoker Have you smoked in the past 12 months: No If you are a former smoker, when did you quit?: 10 years ago Information on smoking cessation initiated: No Hx Alcohol Use: No Drug/Substance Use Hx: No Substance Use Type: None Hx Substance Use Treatment: No Review of Systems - Review of Systems Able to Perform ROS?: Yes Constitutional: Yes: Weakness HEENTM: No: Symptoms Reported Respiratory: Yes: See HPI. No: Productive cough, Hemoptysis Cardiac (ROS): No: Symptoms Reported ABD/GI: No: Symptoms Reported : No: Symptoms Reported Musculoskeletal: No: Symptoms Reported Neurological: No: Symptoms reported All Other Systems: Reviewed and Negative *Physical Exam - Vital Signs Last Vital Signs Temp Pulse Resp BP Pulse Ox 97.8 F 103 H 20 111/66 72 L 11/10/17 14:48 11/10/17 14:48 11/10/17 14:48 11/10/17 14:48 11/10/17 14:48 - Physical Exam General Appearance: Yes: Nourished, Appropriately Dressed, Apparent Distress HEENT: positive: EOMI, MC, Normal ENT Inspection Respiratory/Chest: positive: Lungs Clear, Normal Breath Sounds, Other (on O2). negative: Chest Tender, Respiratory Distress Cardiovascular: positive: Regular Rhythm, S1, S2, Tachycardia Gastrointestinal/Abdominal: positive: Normal Bowel Sounds, Flat, Soft. negative : Tender Musculoskeletal: positive: Normal Inspection. negative: CVA Tenderness Extremity: positive: Normal Capillary Refill, Normal Inspection, Normal Range of Motion Integumentary: positive: Normal Color, Dry, Warm ED Treatment Course - LABORATORY CBC & Chemistry Diagram: 11/10/17 14:48 11/10/17 14:48 Medical Decision Making - Medical Decision Making 11/10/17 16:47 67 y/o man with a past medical history of Stage 5 CKD on HD Mon/Wed/Fri, Pulmonary hypertension on 3L O2 at home, HTN, HLD, Prostate Ca (no Rx, 01/2017), Hyperparathyroidism, GERD, BPH presents to the ED after completing dialysis today feeling severely short of breath and on the verge of passing out. pulmonary hypertension exacerbation vs PE. similar symptoms and O2 saturation everytime patient doesn't use his O2 Patient already on NS 02 when seen. basic labs + consults and admission to observation 11/10/17 16:51 *DC/Admit/Observation/Transfer Diagnosis at time of Disposition: Hypoxemia - Discharge Dispostion Admit: Yes - Referrals Referrals: Vinny Hamm MD [Primary Care Provider] - - Patient Instructions - Post Discharge Activity
[2017-11-10 15:09] LABS: BASO % 0.6 % (0-2.0); EOS % 0.9 % (0-4.5); HEMATOCRIT 34.9 % (35.4-49); HEMOGLOBIN 11.9 GM/dL (11.7-16.9); LYMPH % 10.7 % (8-40); MCH 35.8 pg (25.7-33.7); MCHC 34.2 g/dl (32.0-35.9); MEAN CELL VOLUME 104.8 fl (80-96); MONO % 7.7 % (3.8-10.2); NEUT % 80.1 % (42.8-82.8); PLATELET COUNT 180 K/MM3 (134-434); RBC 3.33 M/mm3 (4.00-5.60); RDW 16.2 % (11.9-15.9); WHITE BLOOD COUNT 7.6 K/mm3 (4.0-10.0)
--- NOTE | 2017-11-10 15:24 | PDOC ---
Attending Attestation - HPI HPI: 11/10/17 15:42 The patient is a 67 year old male with a significant PMH of stage 5 CKD (on dialysis MWF), 3L home O2 use, HTN, hyperlipidemia, prostate CA, hyperparathyroidism, GERD, and BPH who presents to the emergency department s/p dialysis for evaluation of shortness of breath and low O2 sat. The patient reports feeling short of breath after dialysis and tried to walk to Dr. Crawley office where he was found to have an O2 sat in the low 70s. The patient states he was not using his home O2 this morning. Allergies: NKA PCP: Dr. Hamm Pulm: Dr. Brunson Cardio: Dr. Hopkins Nephro: Dr. Mackenzie - Physicial Exam PE: 11/10/17 15:42 Vitals: Triage Vital signs reviewed General Appearance: no acute distress, well nourished well developed, Cardiac: Regular rate and rhythm, no murmurs, no rubs, no gallops, Lungs: Clear to auscultation bilateral, good air movement bilaterally, Abdomen: Soft, nondistended, normal bowel sounds, nontender to palpation Extremities: Full range of motion to all extremities, no cyanosis, clubbing, or edema Skin: Warm and dry, no rashes or lesions, no petechiae Neuro: AOX3; Cranial Nerves 2-12 grossly intact, Strength intact to all extremities, Sensation intact to all extremities Psych: normal mood, normal affect <Kaden Dodson - Last Filed: 11/10/17 15:47> - Resident Resident Name: Lucas Cardona - ED Attending Attestation I have performed the following: I have examined & evaluated the patient, The case was reviewed & discussed with the resident, I agree w/resident's findings & plan, Exceptions are as noted - Medical Decision Making 11/11/17 16:03 67 years old found to be hypoxic after dialysis Patient O2 dependent questionable consistent O2 use at home also with likely pulmonary hypertension We'll observe in hospital for cardiology nephrology and pulmonary consultation <James Sosa - Last Filed: 11/11/17 16:03>
[2017-11-10 15:40] LABS: ALBUMIN 3.4 g/dl (3.4-5.0); ANION GAP 10 (8-16); BILIRUBIN,TOTAL 1.9 mg/dL (0.2-1.0); BLOOD UREA NITROGEN 21 mg/dL (7-18); CALCIUM 7.9 mg/dL (8.5-10.1); CHLORIDE 104 mmol/L (98-107); CO2 27 mmol/L (21-32); CREATININE 3.4 mg/dL (0.7-1.3); GLUCOSE,RANDOM 79 mg/dL (74-106); POTASSIUM 3.3 mmol/L (3.5-5.1); SGOT/AST 18 U/L (15-37); SGPT/ALT 20 U/L (12-78); SODIUM 141 mmol/L (136-145); TOT PROT 6.8 g/dl (6.4-8.2)
[2017-11-10 15:43] LABS: ALK PHOS 88 U/L (45-117); N-TERMINAL BNP 33389.37 pg/ml (5-125)
[2017-11-10] MEDS ORDERED: ACETAMINOPHEN 325 MG TABLET (FP) PO PRN (16:35)
[2017-11-10] MEDS ORDERED: ONDANSETRON 4 MG/2 ML VIAL IVPUSH PRN (16:35)
--- NOTE | 2017-11-10 16:38 | HP ---
Admitting History and Physical - Primary Care Physician PCP: Vinny Hamm - Admission Chief Complaint: I could not breathe History of Present Illness: Mr Krishnamurthy is a pleasant 67 year old male who comes in from dialysis with dyspnea and hypoxia. Both he and his are not clear and often contradict each other so history is unclear. They both agree that he is supposed to use home oxygen and about a month ago he started having shortness of breath with minimal exertion. However the insists that he wears his oxygen continuously and is short of breath on oxygen, and he states that he often takes off his oxygen and becomes short of breath with minimal exertion and that the oxygen helps. He says he has been seen by both Dr Avila and Dr Richter as an outpatient and have been referred to another specialist for further care. Today he was walking to HD and he decided to not wear his oxygen from the car to the center. Also because it was raining he walked a bit faster. He says he became short of breath and lightheaded. He got to HD and was found to have an oxygen saturation in the 70s off of oxygen. He says the symptoms resolved once he was put on oxygen. Currently he says he is feeling better. He denies syncope, chest pain or pressure, coughing, abdominal pain, nausea, vomiting, diarrhea, constipation, or swelling. 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 with agents including mycophenolate, Cytoxan , tacrolimus, prednisone, intravenous rituximab and Acthar Gel) ) Heme/Onc: Yes: Anemia Endocrine: Yes: Hyperparathyroidism, Other (Multinodular goiter) - Past Surgical History Past Surgical History: Yes: AV Fistula/Graft (left arm) - Smoking History Smoking history: Former smoker Have you smoked in the past 12 months: No If you are a former smoker, when did you quit?: 10 years ago - Alcohol/Substance Use Hx Alcohol Use: No History of Substance Use: reports: None - Social History Usual Living Arrangement: Yes: With Spouse ADL: Independent History of Recent Travel: No Home Medications - Allergies Allergies/Adverse Reactions: Allergies Allergy/AdvReac Type Severity Reaction Status Date / Time No Known Allergies Allergy Verified 11/10/17 14:48 - Home Medications Home Medications: Ambulatory Orders Amlodipine Besylate [Norvasc -] 1 tab PO DAILY 11/08/13 Alfuzosin HCl [Uroxatral] 10 mg PO DAILY 01/22/17 Losartan Potassium 100 mg PO DAILY 01/22/17 Rosuvastatin Calcium [Crestor] 20 mg PO DAILY 01/22/17 Carvedilol 6.25 mg PO DAILY 06/06/17 Furosemide [Lasix] 40 mg PO DAILY 06/06/17 Lidocaine [Anecream5] 30 gm TP DAILY 06/06/17 Family Disease History - Family Disease History Family History: Unremarkable Review of Systems Findings/Remarks: Full review of systems obtained, as per HPI and otherwise negative. Physical Examination Vital Signs: Vital Signs Temperature 36.6 C 11/10/17 14:48 Pulse Rate 103 H 11/10/17 14:48 Respiratory Rate 20 11/10/17 14:48 Blood Pressure 111/66 11/10/17 14:48 O2 Sat by Pulse Oximetry (%) 72 L 11/10/17 14:48 Constitutional: Yes: Well Nourished, No Distress, Calm Eyes: Yes: Conjunctiva Clear, EOM Intact, PERRL HENT: Yes: Atraumatic, Normocephalic Cardiovascular: Yes: Regular Rate and Rhythm. No: Gallop, Murmur, Rub Respiratory: Yes: Regular, CTA Bilaterally, On Nasal O2. No: Rales, Rhonchi, Wheezes Gastrointestinal: Yes: Normal Bowel Sounds, Soft. No: Distention, Tenderness Extremities: Yes: WNL Edema: No Labs: CBC, BMP 11/10/17 14:48 11/10/17 14:48 Imaging - Results Chest X-ray: Report Reviewed, Image Reviewed Problem List - Problems (1) Hypoxemia Assessment/Plan: -patient followed by both cardiology and pulmonary in the outpatient setting -consults placed -does not appear fluid overloaded, does not appear to be CHF exacerbation -unclear if patient is wearing his oxygen or not at home -however does desaturate into the high 80s with talking -admit under observation currently, may need longer stay -continue pulse oximetry -continue 3L NC -will walk patient with oxygen and see if has significant desaturations Code(s): R09.02 - HYPOXEMIA (2) CHF (congestive heart failure) Assessment/Plan: -stable -continue HD and diuretics Code(s): I50.9 - HEART FAILURE, UNSPECIFIED (3) ESRD (end stage renal disease) Assessment/Plan: -case d/w Dr Mackenzie -continue HD per his recommendations Code(s): N18.6 - END STAGE RENAL DISEASE (4) HLD (hyperlipidemia) Assessment/Plan: -continue crestor Code(s): E78.5 - HYPERLIPIDEMIA, UNSPECIFIED Qualifiers: Hyperlipidemia type: pure hypercholesterolemia Qualified Code(s): E78.00 - Pure hypercholesterolemia, unspecified; E78.0 - Pure hypercholesterolemia (5) HTN (hypertension) Assessment/Plan: -continue cozaar, coreg, and lasix -well controlled Code(s): I10 - ESSENTIAL (PRIMARY) HYPERTENSION Qualifiers: Hypertension type: essential hypertension Qualified Code(s): I10 - Essential (primary) hypertension (6) Hyperparathyroidism Assessment/Plan: -continue renvela Code(s): E21.3 - HYPERPARATHYROIDISM, UNSPECIFIED
[2017-11-10] MEDS ORDERED: SEVELAMER CARBONATE 800 MG TAB (FP) PO SCH (17:30)
--- NOTE | 2017-11-10 17:45 | CONSULT ---
Consult Consult Specialty:: Nephrology Reason for Consultation:: ESRD - History of Present Illness Chief Complaint: SOB History of Present Illness: Pt is a 67 year old male with pmhx of ESRD and CAD who we sent in from dialysis for increased shortness of breath. Pt has had shortness of breath with ambulation. He went to see pulmonary yesterday and has an appointment with a pulmonary hypertension specialist next month. He is comfortable at rest but his symptoms worsen with ambulation. He denies cough, fevers of chills. He is compliant with fluid intake. - History Source History Provided By: Patient, Medical Record - Past Medical History Cardio/Vascular: Yes: HTN Gastrointestinal: Yes: Other (benign colonic polyps) Renal/: Yes: Renal Failure, Renal Inusuff (Idiopathic membranous nephropathy ( dx 2006, failed to respond to prior therapy with agents including mycophenolate , Cytoxan, tacrolimus, prednisone, intravenous rituximab and Acthar Gel) ), Hemodialysis Endocrine: Yes: Hyperparathyroidism, Other (Multinodular goiter) - Past Surgical History Past Surgical History: Yes: AV Fistula/Graft (left arm) - Alcohol/Substance Use Hx Alcohol Use: No History of Substance Use: reports: None - Smoking History Smoking history: Former smoker Have you smoked in the past 12 months: No If you are a former smoker, when did you quit?: 10 years ago - Social History Usual Living Arrangement: With Spouse ADL: Independent Home Medications - Allergies Allergies/Adverse Reactions: Allergies Allergy/AdvReac Type Severity Reaction Status Date / Time No Known Allergies Allergy Verified 11/10/17 14:48 - Home Medications Home Medications: Ambulatory Orders Amlodipine Besylate [Norvasc -] 1 tab PO DAILY 11/08/13 Alfuzosin HCl [Uroxatral] 10 mg PO DAILY 01/22/17 Losartan Potassium 100 mg PO DAILY 01/22/17 Rosuvastatin Calcium [Crestor] 20 mg PO DAILY 01/22/17 Carvedilol 6.25 mg PO DAILY 06/06/17 Furosemide [Lasix] 40 mg PO DAILY 06/06/17 Lidocaine [Anecream5] 30 gm TP DAILY 06/06/17 Family Disease History - Family Disease History Family History: Denies Review of Systems - Review of Systems Constitutional: reports: Malaise. denies: Chills Eyes: reports: No Symptoms HENT: reports: No Symptoms Neck: reports: No Symptoms Cardiovascular: reports: Shortness of Breath Respiratory: reports: SOB, SOB on Exertion. denies: Wheezing Gastrointestinal: reports: No Symptoms Genitourinary: reports: No Symptoms Musculoskeletal: reports: No Symptoms Integumentary: reports: No Symptoms Neurological: reports: No Symptoms Endocrine: reports: No Symptoms Hematology/Lymphatic: reports: No Symptoms Psychiatric: reports: No Symptoms Physical Exam Vital Signs: Vital Signs Temperature 97.8 F 11/10/17 14:48 Pulse Rate 103 H 11/10/17 14:48 Respiratory Rate 20 11/10/17 14:48 Blood Pressure 111/66 11/10/17 14:48 O2 Sat by Pulse Oximetry (%) 72 L 11/10/17 14:48 Constitutional: Yes: Calm Eyes: Yes: Conjunctiva Clear HENT: Yes: Atraumatic Neck: Yes: Supple Cardiovascular: Yes: S1, S2 Respiratory: Yes: On Nasal O2 Gastrointestinal: Yes: Soft Renal/: Yes: WNL Musculoskeletal: Yes: WNL Edema: No Neurological: Yes: Oriented Psychiatric: Yes: Oriented Labs: CBC, BMP 11/10/17 14:48 11/10/17 14:48 Laboratory Tests 11/10/17 11/10/17 14:48 14:48 WBC 7.6 Hgb 11.9 D Hct 34.9 L D Sodium 141 Potassium 3.3 L Chloride 104 Carbon Dioxide 27 D Anion Gap 10 BUN 21 H D Creatinine 3.4 H D Imaging - Results Chest X-ray: Report Reviewed Problem List - Problems (1) Hypoxemia Code(s): R09.02 - HYPOXEMIA (2) Anemia Code(s): D64.9 - ANEMIA, UNSPECIFIED Qualifiers: Anemia type: due to chronic kidney disease Chronic kidney disease stage: on chronic dialysis Qualified Code(s): N18.6 - End stage renal disease; D63.1 - Anemia in chronic kidney disease; D63.1 - Anemia in chronic kidney disease; Z99.2 - Dependence on renal dialysis; Z99.2 - Dependence on renal dialysis; Z99.2 - Dependence on renal dialysis; Z99.2 - Dependence on renal dialysis (3) CHF (congestive heart failure) Code(s): I50.9 - HEART FAILURE, UNSPECIFIED (4) ESRD (end stage renal disease) Code(s): N18.6 - END STAGE RENAL DISEASE Assessment/Plan Current Medications Generic Name Dose Route Start Last Admin Trade Name Freq PRN Reason Stop Dose Admin Acetaminophen 650 mg 11/10/17 16:35 Tylenol - PO Q4H PRN PAIN Carvedilol 6.25 mg 11/11/17 10:00 Coreg - PO DAILY EARL Furosemide 40 mg 11/11/17 10:00 Lasix - PO DAILY EARL Losartan Potassium 100 mg 11/11/17 10:00 Cozaar - PO DAILY EARL Ondansetron HCl 4 mg 11/10/17 16:35 Zofran Injection IVPUSH Q6H PRN NAUSEA Rosuvastatin Calcium 20 mg 11/11/17 22:00 Crestor - PO HS EARL Sevelamer Carbonate 400 mg 11/10/17 17:30 Renvela - PO TIDCM EARL Tamsulosin HCl 0.4 mg 11/11/17 08:30 Flomax - PO DAILY@0830 EARL Impression 1. ESRD 2. CHF 3. anemia 4. HTN 5. hyperlipidemia 6. hypoxia 7. pulm hypertension 8. CAD Plan - pt dialyzed today - called pulmonary for eval - cont current meds - repeat labs in an - cxr does not show failure - doubt volume is a problem with dyspnea - will follow Dr Mackenzie
[2017-11-10] MEDS ORDERED: ROSUVASTATIN CA 20 MG TABLET (FP) PO SCH (22:15)
[2017-11-11 01:50] VITALS: BMI 24.4
[2017-11-11 07:37] LABS: BASO % 0.6 % (0-2.0); EOS % 1.2 % (0-4.5); HEMATOCRIT 31.5 % (35.4-49); HEMOGLOBIN 10.9 GM/dL (11.7-16.9); LYMPH % 12.2 % (8-40); MCH 36.4 pg (25.7-33.7); MCHC 34.5 g/dl (32.0-35.9); MEAN CELL VOLUME 105.3 fl (80-96); MEAN PLT VOLUME 8.8 fl (7.5-11.1); MONO % 9.2 % (3.8-10.2); NEUT % 76.8 % (42.8-82.8); PLATELET COUNT 170 K/MM3 (134-434); RBC 2.99 M/mm3 (4.00-5.60); WHITE BLOOD COUNT 7.5 K/mm3 (4.0-10.0)
[2017-11-11 07:59] LABS: ANION GAP 12 (8-16); BLOOD UREA NITROGEN 30 mg/dL (7-18); CALCIUM 7.8 mg/dL (8.5-10.1); CHLORIDE 105 mmol/L (98-107); CO2 26 mmol/L (21-32); GLUCOSE,RANDOM 99 mg/dL (74-106); MAGNESIUM 2.4 mg/dL (1.8-2.4); POTASSIUM 3.8 mmol/L (3.5-5.1); SODIUM 143 mmol/L (136-145)
[2017-11-11] MEDS ORDERED: TAMSULOSIN HCL 0.4 MG CAP.ER.24H (FP) PO SCH (08:30)
[2017-11-11] MEDS ORDERED: CARVEDILOL 6.25 MG TABLET (FP) PO SCH (10:00)
[2017-11-11] MEDS ORDERED: FUROSEMIDE 40 MG TABLET (FP) PO SCH (10:00)
[2017-11-11] MEDS ORDERED: LOSARTAN POTASSIUM 50 MG TABLET (FP) PO SCH (10:00)
--- NOTE | 2017-11-11 10:01 | CON.CARD ---
Consult Consult Specialty:: Cardiology Referred by:: Dr. Diaz Reason for Consultation:: PHTN - History of Present Illness Chief Complaint: Near syncope History of Present Illness: 67 M ESRD on HD with established nitro responsive PHTN, non-compliant with home O2, admitted after episode of near syncope at HD not using O2. He was in my office several days ago without O2 appearing cyanotic and then also went to Dr. Brunson's office off O2 and was hypoxic. Compliance with O2 was stressed. He denies CP, palps, edema. He does have chronic BENÍTEZ which is worse over last 3 months. There is a plan for him to see a PHTN specialist at [place]. Recent R/L heart cath at [facility]-- non-obstructive CAD with moderate to severe PHTN nitro responsive. 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 with agents including mycophenolate, Cytoxan , tacrolimus, prednisone, intravenous rituximab and Acthar Gel) ), Hemodialysis Endocrine: Yes: Hyperparathyroidism, Other (Multinodular goiter) - Past Surgical History Past Surgical History: Yes: AV Fistula/Graft (left arm) - Alcohol/Substance Use Hx Alcohol Use: No History of Substance Use: reports: None - Smoking History Smoking history: Former smoker Have you smoked in the past 12 months: No If you are a former smoker, when did you quit?: 10 years ago - Social History Usual Living Arrangement: With Spouse ADL: Independent History of Recent Travel: No Home Medications - Allergies Allergies/Adverse Reactions: Allergies Allergy/AdvReac Type Severity Reaction Status Date / Time No Known Allergies Allergy Verified 11/10/17 14:48 - Home Medications Home Medications: Ambulatory Orders Amlodipine Besylate [Norvasc -] 1 tab PO DAILY 11/08/13 Alfuzosin HCl [Uroxatral] 10 mg PO DAILY 01/22/17 Losartan Potassium 100 mg PO DAILY 01/22/17 Rosuvastatin Calcium [Crestor] 20 mg PO DAILY 01/22/17 Carvedilol 6.25 mg PO DAILY 06/06/17 Furosemide [Lasix] 40 mg PO DAILY 06/06/17 Lidocaine [Anecream5] 30 gm TP DAILY 06/06/17 Family Disease History - Family Disease History Family History: Unremarkable (non-contributory to this presentation) Review of Systems Findings/Remarks: see HPI - Review of Systems Constitutional: reports: No Symptoms Eyes: reports: No Symptoms HENT: reports: No Symptoms Cardiovascular: reports: Shortness of Breath Respiratory: reports: SOB on Exertion Gastrointestinal: denies: No Symptoms, Abdominal Pain, Bloating, Constipation, Diarrhea, Dysphagia, Indigestion, Melena, Nausea, Rectal Bleeding, Vomiting, Vomiting Blood, Other Genitourinary: denies: No Symptoms, Burning, Discharge, Dysuria, Flank Pain, Frequency, Hematuria, Incontinence, Lesions, Menses, Pain, Testicular Mass, Testicular Pain, Testicular Swelling, Urgency, Vaginal Bleeding, Other Breasts: denies: No Symptoms Reported, See HPI, Breast Implants, Discharge from Nipple, Lumps, Pain, Skin Changes, Other Musculoskeletal: denies: No Symptoms, Back Pain, Crepitus, Decreased ROM, Extremity Pain, Joint Pain, Joint Swelling, Muscle Pain, Muscle Cramps, Muscle Weakness, Other Integumentary: denies: No Symptoms, Blister, Bruising, Change in Color, Eczema, Erythema, Incision, Lesions, Lump, Pallor, Pruritis, Rash, Wound, Other Neurological: denies: No Symptoms, Change in LOC, Change in Speech, Confusion, Dizziness, Headache, Incoordination, Numbness, Parasthesia, Pre-Existing Deficit , Seizure, Syncope, Tremors, Unsteady Gait, Weakness, Other Endocrine: denies: No Symptoms, Excessive Sweating, Flushing, Increased Hunger, Increased Thirst, Intolerance to Cold, Intolerance to Heat, Unexplained Weight Gain, Unexplained Weight Loss, Other Hematology/Lymphatic: denies: No Symptoms, Easily Bruised, Excessive Bleeding, Swollen Glands, Other Psychiatric: denies: No Symptoms, Altered Sleep Pattern, Anxiety, Depression, Hallucinations, Panic, Paranoia, Suicidal, Other - Risk Factors Known Risk Factors: Yes: Hypercholesterolemia, Hypertension, Smoking Vital Signs: Vital Signs Temperature 98.3 F 11/11/17 05:53 Pulse Rate 101 H 11/11/17 05:53 Respiratory Rate 20 11/11/17 05:53 Blood Pressure 90/58 11/11/17 05:53 O2 Sat by Pulse Oximetry (%) 72 L 11/10/17 20:35 Constitutional: Yes: No Distress Eyes: Yes: EOM Intact Respiratory: Yes: CTA Bilaterally Gastrointestinal: Yes: Soft Cardiovascular: Yes: Regular Rate and Rhythm (S1, prominent S2, 2/6 SARAI RSB c/w TR) JVD: Yes Carotid Bruit: No PMI: Non-Displaced Edema: No Peripheral Pulses WNL: Yes Neurological: Yes: Alert, Oriented - Other Data Labs, Other Data: CBC, BMP 11/11/17 06:00 11/11/17 06:00 Troponin, BNP 11/10/17 14:48 Troponin I 0.03 D B-Natriuretic Peptide 23938.37 H Troponin, BNP 11/10/17 14:48 Troponin I 0.03 D B-Natriuretic Peptide 85380.37 H NSR 87bpm. Diffuse non-specific TWI Echo: Pending Imaging - Results Chest X-ray: Report Reviewed EKG: Image Reviewed Problem List - Problems (1) Hypoxemia Code(s): R09.02 - HYPOXEMIA (2) Pulmonary HTN Code(s): I27.20 - PULMONARY HYPERTENSION, UNSPECIFIED (3) Abnormal ECG Code(s): R94.31 - ABNORMAL ELECTROCARDIOGRAM [ECG] [EKG] (4) ESRD (end stage renal disease) Code(s): N18.6 - END STAGE RENAL DISEASE Assessment/Plan IMP: Hypoxemia in setting of non-compliance with home O2 Chronic PHTN ESRD Abnl ECG REC: 1. To observe on O2 with exertion. 2. Plan for outpatient consultation w/ PHTN specialist, arranged by Dr. Brunson. 3. Repeat outpatient CT Chest at interval recommended by Pulmonary (?Sarcoid on previous study). 4. Non-specific T waves on ECG with recent cath showing no sig CAD, no further work up planned at this time. 5. Will adjust BP meds as BP has been running on low end. 6. Repeat echo while here, was planned as outpatient this week.
[2017-11-11 10:56] VITALS: TEMP 98.1
--- NOTE | 2017-11-11 11:03 | CON.PULM ---
Consult Consult Specialty:: PULMONARY Referred by:: Dr. Diaz Reason for Consultation:: shortness of breath - History of Present Illness Chief Complaint: shortness of breath History of Present Illness: 67yo male with h/o HTN, ESRD on HD, pulmonary HTN, chronic hypoxic respiratory failure on home O2 who was admitted for episode of shortness of breath while he was walking off his oxygen. No chest pain or palpitations. No fevers, chills or sweats. No cough or wheezing. Found to be hypoxic to 70s off oxygen. He is scheduled to see a pulmonary hypertension specialist next month. He had a recent cardiac catheterization which showed nonobstructive CAD with mod-severe pulmonary HTN which was nitro responsive. He was a long time smoker, started at age 16, smoked on average 1 PPD. Uses Breo at home which he states is mildly beneficial. Currently saturating 93% on nasal cannula, feels back to baseline. Last CT chest was in May 2017 showing small bilateral effusions as well as emphysematous changes. 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 to prior therapy with agents including mycophenolate, Cytoxan , tacrolimus, prednisone, intravenous rituximab and Acthar Gel) ), Hemodialysis Endocrine: Yes: Hyperparathyroidism, Other (Multinodular goiter) - Past Surgical History Past Surgical History: Yes: AV Fistula/Graft (left arm) - Alcohol/Substance Use Hx Alcohol Use: No History of Substance Use: reports: None - Smoking History Smoking history: Former smoker Have you smoked in the past 12 months: No If you are a former smoker, when did you quit?: 10 years ago - Social History Usual Living Arrangement: With Spouse ADL: Independent History of Recent Travel: No Home Medications - Allergies Allergies/Adverse Reactions: Allergies Allergy/AdvReac Type Severity Reaction Status Date / Time No Known Allergies Allergy Verified 11/10/17 14:48 - Home Medications Home Medications: Ambulatory Orders Amlodipine Besylate [Norvasc -] 1 tab PO DAILY 11/08/13 Alfuzosin HCl [Uroxatral] 10 mg PO DAILY 01/22/17 Losartan Potassium 100 mg PO DAILY 01/22/17 Rosuvastatin Calcium [Crestor] 20 mg PO DAILY 01/22/17 Carvedilol 6.25 mg PO DAILY 06/06/17 Furosemide [Lasix] 40 mg PO DAILY 06/06/17 Lidocaine [Anecream5] 30 gm TP DAILY 06/06/17 Review of Systems - Review of Systems Constitutional: denies: Chills, Fever Eyes: denies: Recent Change in Vision HENT: denies: Nasal Congestion, Throat Pain Neck: denies: Stiffness, Tenderness Cardiovascular: reports: Shortness of Breath. denies: Chest Pain, Edema, Palpitations Respiratory: reports: Exercise Intolerance, SOB on Exertion. denies: Cough, Hemoptysis, Wheezing Gastrointestinal: denies: Abdominal Pain, Nausea, Vomiting Genitourinary: denies: Dysuria, Hematuria Neurological: denies: Dizziness, Headache Physical Exam Vital Sings: Vital Signs Temperature 98.1 F 11/11/17 10:00 Pulse Rate 93 H 11/11/17 10:00 Respiratory Rate 20 11/11/17 10:00 Blood Pressure 115/58 11/11/17 10:00 O2 Sat by Pulse Oximetry (%) 90 L 11/11/17 08:35 Constitutional: Yes: Calm Eyes: Yes: Conjunctiva Clear, EOM Intact HENT: Yes: Atraumatic, Normocephalic Neck: Yes: Supple, Trachea Midline Cardiovascular: Yes: Regular Rate and Rhythm Respiratory: Yes: Diminished (decreased breath sounds at the bases) ...Clubbing: No Gastrointestinal: Yes: Normal Bowel Sounds, Soft. No: Tenderness Edema: No Labs: CBC, BMP 11/11/17 06:00 11/11/17 06:00 Imaging - Results Chest X-ray: Report Reviewed, Image Reviewed (no acute infiltrates) Problem List - Problems (1) Acute and chronic respiratory failure with hypoxia Code(s): J96.21 - ACUTE AND CHRONIC RESPIRATORY FAILURE WITH HYPOXIA (2) Pulmonary HTN Code(s): I27.20 - PULMONARY HYPERTENSION, UNSPECIFIED (3) ESRD (end stage renal disease) Code(s): N18.6 - END STAGE RENAL DISEASE (4) HTN (hypertension) Code(s): I10 - ESSENTIAL (PRIMARY) HYPERTENSION Qualifiers: Hypertension type: essential hypertension Qualified Code(s): I10 - Essential (primary) hypertension (5) COPD (chronic obstructive pulmonary disease) Code(s): J44.9 - CHRONIC OBSTRUCTIVE PULMONARY DISEASE, UNSPECIFIED (6) Emphysema lung Code(s): J43.9 - EMPHYSEMA, UNSPECIFIED Assessment/Plan Acute on Chronic Hypoxic Respiratory Failure ESRD on HD COPD/Emphysema HTN Pulmonary HTN - O2 to keep SpO2 >90% - HD per renal - inhaled bronchodilators - appears to be at his baseline, can discharge from pulmonary standpoint with outpt f/u - DVT prophylaxis Thank you for this consult Gordon Han MD
[2017-11-11 13:47] VITALS: BP 104/54
--- NOTE | 2017-11-11 13:50 | DS ---
Physical Examination Vital Signs: Vital Signs Temperature 36.7 C 11/11/17 13:45 Pulse Rate 93 H 11/11/17 13:45 Respiratory Rate 20 11/11/17 13:45 Blood Pressure 104/54 11/11/17 13:45 O2 Sat by Pulse Oximetry (%) 91 L 11/11/17 13:34 Constitutional: Yes: Well Nourished, No Distress, Calm Cardiovascular: Yes: Regular Rate and Rhythm. No: Gallop, Murmur, Rub Respiratory: Yes: Regular, CTA Bilaterally, On Nasal O2. No: Rales, Rhonchi, Wheezes Gastrointestinal: Yes: Normal Bowel Sounds, Soft. No: Distention, Tenderness Extremities: Yes: WNL Edema: No Labs: CBC, BMP 11/11/17 06:00 11/11/17 06:00 Discharge Summary Reason For Visit: HYPOXEMIA Current Active Problems Abnormal ECG (Acute) Acute and chronic respiratory failure with hypoxia (Acute) COPD (chronic obstructive pulmonary disease) (Acute) Emphysema lung (Acute) Hypoxemia (Acute) Pulmonary HTN (Acute) Hospital Course: (1) Hypoxemia Code(s): R09.02 - HYPOXEMIA (2) CHF (congestive heart failure) Code(s): I50.9 - HEART FAILURE, UNSPECIFIED (3) ESRD (end stage renal disease) Code(s): N18.6 - END STAGE RENAL DISEASE (4) HLD (hyperlipidemia) Code(s): E78.5 - HYPERLIPIDEMIA, UNSPECIFIED Qualifiers: Hyperlipidemia type: pure hypercholesterolemia Qualified Code(s): E78.00 - Pure hypercholesterolemia, unspecified; E78.0 - Pure hypercholesterolemia (5) HTN (hypertension) Code(s): I10 - ESSENTIAL (PRIMARY) HYPERTENSION Qualifiers: Hypertension type: essential hypertension Qualified Code(s): I10 - Essential (primary) hypertension (6) Hyperparathyroidism Code(s): E21.3 - HYPERPARATHYROIDISM, UNSPECIFIED Mr Krishnamurthy is a pleasant 67 year old male who comes in with hypoxia. He was admitted under observation and continued on oxygen. He was seen by pulmonary and cardiology. When ambulated on oxygen, he maintained his saturations. He is currently stable for discharge and encouraged to wear his oxygen at all times. Condition: Stable - Instructions Diet, Activity, Other Instructions: resume previous diet and activity. Wear your oxygen at all times, use 4L at rest and increase to to 5L on walking/exertion. Referrals: Maxim Brunson MD [Staff Physician] - Gareth Hopkins MD [Staff Physician] - David Mackenzie MD [Staff Physician] - Vinny Hamm MD [Primary Care Provider] - 1 Week Disposition: HOME - Home Medications Comprehensive Discharge Medication List: Ambulatory Orders Alfuzosin HCl [Uroxatral] 10 mg PO DAILY 01/22/17 Rosuvastatin Calcium [Crestor] 20 mg PO DAILY 01/22/17 Furosemide [Lasix] 40 mg PO DAILY 06/06/17 Lidocaine [Anecream5] 30 gm TP DAILY 06/06/17 Carvedilol [Coreg -] 3.125 mg PO BID #60 tablet 11/11/17 Losartan Potassium [Cozaar -] 50 mg PO DAILY #30 tablet 11/11/17 Sevelamer Carbonate [Renvela -] 400 mg PO TIDCM tab 11/11/17
[2017-11-11 14:35] VITALS: PULSE 102
--- NOTE | 2017-11-11 14:57 | PN ---
Progress Note, Physician History of Present Illness: Pt seen and examined at bedside. He is awake and alert. He says he is going home today. He will keep his oxygen on. - Current Medication List Current Medications: Active Medications Acetaminophen (Tylenol -) 650 mg PO Q4H PRN PRN Reason: PAIN Carvedilol (Coreg -) 3.125 mg PO BID [facility] Furosemide (Lasix -) 40 mg PO DAILY [facility] Last Admin: 11/11/17 09:43 Dose: Not Given Losartan Potassium (Cozaar -) 50 mg PO DAILY [facility] Ondansetron HCl (Zofran Injection) 4 mg IVPUSH Q6H PRN PRN Reason: NAUSEA Rosuvastatin Calcium (Crestor -) 20 mg PO HS [facility] Last Admin: 11/10/17 22:50 Dose: 20 mg Sevelamer Carbonate (Renvela -) 400 mg PO TIDCM [facility] Tamsulosin HCl (Flomax -) 0.4 mg PO DAILY@0830 [facility] Last Admin: 11/11/17 09:31 Dose: 0.4 mg - Objective Vital Signs: Vital Signs Temperature 98.1 F 11/11/17 13:45 Pulse Rate 102 H 11/11/17 14:29 Respiratory Rate 20 11/11/17 13:45 Blood Pressure 104/54 11/11/17 13:45 O2 Sat by Pulse Oximetry (%) 91 L 11/11/17 14:29 Constitutional: Yes: Calm Eyes: Yes: Conjunctiva Clear HENT: Yes: Atraumatic Cardiovascular: Yes: S1, S2 Respiratory: Yes: On Nasal O2 Gastrointestinal: Yes: Normal Bowel Sounds, Soft Genitourinary: Yes: WNL Musculoskeletal: Yes: WNL Edema: No Neurological: Yes: Oriented Psychiatric: Yes: Oriented Labs: CBC, BMP 11/11/17 06:00 11/11/17 06:00 Problem List - Problems (1) Hypoxemia Code(s): R09.02 - HYPOXEMIA (2) Anemia Code(s): D64.9 - ANEMIA, UNSPECIFIED Qualifiers: Anemia type: due to chronic kidney disease Chronic kidney disease stage: on chronic dialysis Qualified Code(s): N18.6 - End stage renal disease; D63.1 - Anemia in chronic kidney disease; D63.1 - Anemia in chronic kidney disease; Z99.2 - Dependence on renal dialysis; Z99.2 - Dependence on renal dialysis; Z99.2 - Dependence on renal dialysis; Z99.2 - Dependence on renal dialysis (3) CHF (congestive heart failure) Code(s): I50.9 - HEART FAILURE, UNSPECIFIED (4) ESRD (end stage renal disease) Code(s): N18.6 - END STAGE RENAL DISEASE Assessment/Plan Current Medications Generic Name Dose Route Start Last Admin Trade Name Freq PRN Reason Stop Dose Admin Acetaminophen 650 mg 11/10/17 16:35 Tylenol - PO Q4H PRN PAIN Carvedilol 3.125 mg 11/11/17 22:00 Coreg - PO BID [facility] Furosemide 40 mg 11/11/17 10:00 11/11/17 09:43 Lasix - PO Not Given DAILY [facility] Losartan Potassium 50 mg 11/12/17 10:00 Cozaar - PO DAILY [facility] Ondansetron HCl 4 mg 11/10/17 16:35 Zofran Injection IVPUSH Q6H PRN NAUSEA Rosuvastatin Calcium 20 mg 11/10/17 22:15 11/10/17 22:50 Crestor - PO 20 mg HS [facility] Administration Sevelamer Carbonate 400 mg 11/10/17 17:30 Renvela - PO TIDCM [facility] Tamsulosin HCl 0.4 mg 11/11/17 08:30 11/11/17 09:31 Flomax - PO 0.4 mg DAILY@0830 [facility] Administration Impression 1. ESRD 2. CHF 3. anemia 4. HTN 5. hyperlipidemia 6. hypoxia 7. pulm hypertension 8. CAD Plan - HD tomorrow as outpt - pulm input appreciated - pt to follow up with specialist in the city - pt will use oxygen continuously - will follow Dr Mackenzie
--- NOTE | 2017-11-11 16:49 | EKG ---
Test Reason : Blood Pressure : / mmHG Vent. Rate : 087 BPM Atrial Rate : 087 BPM P-R Int : 146 ms QRS Dur : 066 ms QT Int : 382 ms P-R-T Axes : 069 077 -31 degrees QTc Int : 459 ms NORMAL SINUS RHYTHM LOW VOLTAGE QRS ABNORMAL ECG WHEN COMPARED WITH ECG OF 10-NOV-2017 14:48, T WAVE INVERSION MORE EVIDENT IN ANTERIOR LEADS Confirmed by MD Tej, Giacomo ([id number]) on 11/11/2017 4:48:47 PM Referred By: Issa POE Confirmed By:Giacomo Burnham MD
[2017-11-11] MEDS ORDERED: CARVEDILOL 3.125 MG TABLET (FP) PO SCH (22:00)
[2017-11-12] MEDS ORDERED: LOSARTAN POTASSIUM 50 MG TABLET (FP) PO SCH (10:00)
--- NOTE | 2017-11-12 11:43 | EKG ---
Test Reason : Blood Pressure : / mmHG Vent. Rate : 090 BPM Atrial Rate : 090 BPM P-R Int : 148 ms QRS Dur : 070 ms QT Int : 380 ms P-R-T Axes : 065 035 -22 degrees QTc Int : 464 ms NORMAL SINUS RHYTHM LOW VOLTAGE QRS NONSPECIFIC T WAVE ABNORMALITY PROLONGED QT ABNORMAL ECG WHEN COMPARED WITH ECG OF 10-JUN-2017 09:12, T WAVE INVERSION LESS EVIDENT IN ANTERIOR LEADS Confirmed by JUHI HENRY, PHAN ([id number]) on 11/12/2017 11:42:36 AM Referred By: Confirmed By:PHAN REYNAGA MD
== END 2017-11-11 15:01 | disposition home or self-care (01) ==
LOC: JER 14:35 → JERBED 16:42 → J7W 20:10
PROVIDERS: ADMIT Internal Medicine; ATTEND Internal Medicine
DX: J96.21 Acute and chronic respiratory failure with hypoxia (principal); I12.0 Hypertensive chronic kidney disease with stage 5 chronic kidney disease or end stage renal disease; N18.6 End stage renal disease; Z99.2 Dependence on renal dialysis; Z87.891 Personal history of nicotine dependence; I50.9 Heart failure, unspecified; I27.20 Pulmonary hypertension, unspecified; I25.10 Atherosclerotic heart disease of native coronary artery without angina pectoris; E78.5 Hyperlipidemia, unspecified; E05.90 Thyrotoxicosis, unspecified without thyrotoxic crisis or storm; C61 Malignant neoplasm of prostate; Z99.81 Dependence on supplemental oxygen; K21.9 Gastro-esophageal reflux disease without esophagitis; N40.0 Benign prostatic hyperplasia without lower urinary tract symptoms; E21.3 Hyperparathyroidism, unspecified; D64.9 Anemia, unspecified; D63.1 Anemia in chronic kidney disease; Z91.19 Patient's noncompliance with other medical treatment and regimen; R94.31 Abnormal electrocardiogram [ECG] [EKG]; J43.9 Emphysema, unspecified
CPT/HCPCS: 36415; 71045-TC-FY; 80048; 80053; 83735; 83880; 84100; 84484; 85025; 93005; 93010; 93306-TC; 94761; 97116-GP; 97161-GP; 99284-25; G0378

== ENCOUNTER 2017-12-08 11:21 | Inpatient (IN) | payer OTHER ==
--- NOTE | 2017-12-08 12:15 | PDOC ---
History of Present Illness - General Chief Complaint: Shortness of Breath Stated Complaint: Shortness of Breath Time Seen by Provider: 12/08/17 12:10 - History of Present Illness Initial Comments: 12/08/17 12:13 67 yo M with h/o CHF, HTN, HLD, Hyperparathyroidism, ESRD ( HD M,W,F), COPD, ILD , Pulm HTN BIBA with SOB. Patient reports Montoya and SOB while at dialysis this AM. Did not receive dialysis, but reports 1 month of worsening Montoya, with no acute change in breathing. States that dialysis nurse called EMS, although patient was without complaint. Patient also noted to be tachycardic in dialysis this AM with HR ~110's. Denies cough, wheezing, hemoptysis, leg swelling. Patient scheduled for oupt. pulmonologsit apt. at [facility] ( ) Denies F/C, N/V, CP, abdominal pain, diarrhea, constipation, urinary complaints , weakness, lightheadedness, sensory changes. Recent [facility] admission ( 11/10-) for hypoxemia. PMHx: [employer] Dr. Avila. Denies h/o PE/DVT, h/o malignancy, hormonal therapy. Denies h/o ACS/NC, stents, or CABG. Does not recall results from last stress test. SHx: Tobacco cessation 11 years ago. Home oxygen requirement, but does not know how many liters. Denies Etoh, IVDA. Denies recent traveling. ROS: as noted above. Past History - Past Medical History Allergies/Adverse Reactions: Allergies Allergy/AdvReac Type Severity Reaction Status Date / Time No Known Allergies Allergy Verified 11/10/17 14:48 Home Medications: Ambulatory Orders Alfuzosin HCl [Uroxatral] 10 mg PO DAILY 12/08/17 Aspirin [Aspirin EC] 81 mg PO DAILY 12/08/17 Carvedilol [Coreg -] 3.125 mg PO BID 12/08/17 Furosemide [Lasix] 40 mg PO DAILY 12/08/17 Losartan Potassium [Cozaar] 50 mg PO DAILY 12/08/17 Rosuvastatin [Crestor -] 20 mg PO HS 12/08/17 Sevelamer Carbonate [Renvela] 1,600 mg PO TID 12/08/17 Anemia: Yes Asthma: No Cancer: No Cardiac Disorders: No CVA: No COPD: No CHF: Yes Dementia: No Diabetes: No Dialysis: Yes (M, W, F) GI Disorders: Yes (COLON POLYPS,HEMORROIDS;GERD; DIVERTICULOSIS;TUBULAR ADENOMA X 3) Disorders: No HTN: Yes Hypercholesterolemia: Yes Liver Disease: No Seizures: No Thyroid Disease: No - Surgical History Abdominal Surgery: No Appendectomy: No Cardiac Surgery: No Cholecystectomy: No Lung Surgery: No Neurologic Surgery: No Orthopedic Surgery: No - Immunization History Immunization Up to Date: Yes - Suicide/Smoking/Psychosocial Hx Smoking History: Former smoker Have you smoked in the past 12 months: No If you are a former smoker, when did you quit?: 10 years ago Hx Alcohol Use: No Drug/Substance Use Hx: No Substance Use Type: None Hx Substance Use Treatment: No Review of Systems - Review of Systems Comments:: 12/08/17 12:13 GENERAL/CONSTITUTIONAL: No fever or chills. No weakness. HEAD, EYES, EARS, NOSE AND THROAT: No change in vision. No ear pain or discharge. No sore throat. CARDIOVASCULAR: +SOB. No chest pain. RESPIRATORY: No cough, wheezing, or hemoptysis. GASTROINTESTINAL: No nausea, vomiting, diarrhea or constipation. GENITOURINARY: No dysuria, frequency, or change in urination. MUSCULOSKELETAL: No joint or muscle swelling or pain. No neck or back pain. SKIN: No rash NEUROLOGIC: No headache, vertigo, loss of consciousness, or change in strength/ sensation. ENDOCRINE: No increased thirst. No abnormal weight change HEMATOLOGIC/LYMPHATIC: No anemia, easy bleeding, or history of blood clots. ALLERGIC/IMMUNOLOGIC: No hives or skin allergy. *Physical Exam - Physical Exam Comments: 12/08/17 12:13 GENERAL: Awake, alert, and fully oriented, in no acute distress HEAD: No signs of trauma, normocephalic, atraumatic EYES: PERRLA, EOMI, sclera anicteric, conjunctiva clear ENT: Hearing grossly normal, nares patent, oropharynx clear without exudates. Moist mucosa NECK: Normal ROM, supple, no lymphadenopathy, JVD, or masses LUNGS: Diminished lung sound at bases. No distress, speaks full sentences, absent rhonci and rales. HEART: Regular rate and rhythm, normal S1 and S2, no murmurs, rubs or gallops, peripheral pulses normal and equal bilaterally. EXTREMITIES : Left radial AV fistula. Normal inspection, Normal range of motion , no edema. No clubbing or cyanosis. SKIN: Warm, Dry, normal turgor, no rashes or lesions noted ED Treatment Course - LABORATORY CBC & Chemistry Diagram: 12/11/17 05:35 12/11/17 05:35 Medical Decision Making - Medical Decision Making 12/08/17 13:15 67 yo M with h/o CHF, HTN, HLD, Hyperparathyroidism, ESRD ( HD M,W,F), COPD, ILD , Pulm HTN BIBA from dialysis (did not receive today), with Montoya, tachycardia ~ 110's ( baseline 90-100), hypoxic to 88, w/ desaturation to low 80's on 5 L NC. Patient now on 6 L NRB, with O2~100. Lung sounds diminished at bases. Patient reports changes are chronic and worsening. Although low suspicion will consider acute on chronic CHF exacerbation (No evidence of volume overload) , COPD ( absent cough, rhonci, increased sputum production), PNA. Perc positive with low- moderate risk weils criteria. Patient to receive dialysis today. ED Course: CBC, CMP, BNP, Cardiac NE, PT/INR, VBG EKG, CXR 12/08/17 14:29 K+: 3.4 12/08/17 14:29 BUN/CR: 55/6.4 (5.0) 12/08/17 14:29 BNP: 52261 12/08/17 14:31 CBC: Unremarkable 12/08/17 14:[address] Mackenzie answering service. 12/08/17 14:[address] Diaz. *DC/Admit/Observation/Transfer Diagnosis at time of Disposition: Missed dialysis - Discharge Dispostion Condition at time of disposition: Guarded Decision to Admit order: Yes - Referrals - Patient Instructions - Post Discharge Activity - Attestations Physician Attestion: 12/08/17 12:14 I attest to the information provided in this note.
[2017-12-08 12:18] VITALS: BMI 22.7
[2017-12-08 13:48] LABS: BASO % 0.6 % (0-2.0); EOS % 0.4 % (0-4.5); HEMATOCRIT 35.8 % (35.4-49); LYMPH % 10.4 % (8-40); MCHC 33.5 g/dl (32.0-35.9); MEAN CELL VOLUME 107.6 fl (80-96); MEAN PLT VOLUME 9.4 fl (7.5-11.1); MONO % 9.8 % (3.8-10.2); NEUT % 78.8 % (42.8-82.8); PLATELET COUNT 180 K/MM3 (134-434); RBC 3.33 M/mm3 (4.00-5.60); RDW 15.4 % (11.9-15.9); WHITE BLOOD COUNT 7.7 K/mm3 (4.0-10.0)
[2017-12-08 13:55] LABS: VENOUS PC02 35.6 mmHg (38-52); VENOUS PH 7.44 (7.32-7.42); VENOUS PO2 37.4 mmHg (28-48)
--- NOTE | 2017-12-08 14:02 | PDOC ---
Attending Attestation - Resident Resident Name: Brandon Mantilla - ED Attending Attestation I have performed the following: I have examined & evaluated the patient, The case was reviewed & discussed with the resident, I agree w/resident's findings & plan, Exceptions are as noted - HPI HPI: 12/08/17 13:58 67 yo M with h/o CHF, HTN, HLD, Hyperparathyroidism, ESRD (HD MWF), COPD, ILD, Pulm HTN, presenting to ED with SOB and hypoxia. Pt was at HD today when he was noted to be in respiratory distress and hypoxic to 80s. Pt states that he has been getting progressively more SOB. He is followed by pulm here but was recently referred to [place] for pulm HTN specialist. Pt denies any acute changes today but states that his exercise tolerance has decreased over the past few weeks to only a few steps. Denies F/C. Denies leg swelling. Denies CP. Pt did not receive any HD today. - Physicial Exam PE: 12/08/17 14:00 "GENERAL: Awake, alert, and fully oriented, in no acute distress. HEAD: No signs of trauma EYES: PERRLA, EOMI, sclera anicteric, conjunctiva clear ENT: Auricles normal inspection, hearing grossly normal, nares patent, oropharynx clear without exudates. Moist mucosa NECK: Nontender, no stepoffs, Normal ROM, supple, no lymphadenopathy, JVD, or masses LUNGS: + mild bibasilar rales, no wheezing HEART: Regular rate and rhythm, normal S1 and S2, no murmurs, rubs or gallops ABDOMEN: Soft, nontender, normoactive bowel sounds. No guarding, no rebound. No masses EXTREMITIES: Normal range of motion, no edema. No clubbing or cyanosis. No cords, erythema, or tenderness NEUROLOGICAL: Cranial nerves II through XII intact. 5/5 strength and sensation in all extremities, Normal speech, normal gait, normal cerebellar function SKIN: Warm, Dry, normal turgor, no rashes or lesions noted. - Medical Decision Making 12/08/17 14:00 67 M with hypoxia and SOB. Possible volume overload, as pt is due for HD today and did not receive it. Also consider worsening of pt's underlying ILD or pHTN. - Labs - CXR - Renal consult for HD
[2017-12-08 14:10] LABS: ALBUMIN 2.9 g/dl (3.4-5.0); ALK PHOS 84 U/L (45-117); ANION GAP 12 (8-16); BILIRUBIN,TOTAL 1.9 mg/dL (0.2-1.0); BLOOD UREA NITROGEN 55 mg/dL (7-18); CALCIUM 7.1 mg/dL (8.5-10.1); CHLORIDE 108 mmol/L (98-107); CO2 23 mmol/L (21-32); CREATININE 6.4 mg/dL (0.7-1.3); GLUCOSE,RANDOM 105 mg/dL (74-106); POTASSIUM 3.4 mmol/L (3.5-5.1); SGOT/AST 50 U/L (15-37); SGPT/ALT 86 U/L (12-78); SODIUM 143 mmol/L (136-145); TOT PROT 5.7 g/dl (6.4-8.2)
[2017-12-08 14:17] LABS: INR 1.32 (0.82-1.09); PROTHROMBIN TIME (PATIENT) 14.9 SEC (9.7-13.0)
[2017-12-08 14:22] LABS: N-TERMINAL BNP 78502.33 pg/ml (5-125)
--- NOTE | 2017-12-08 15:20 | HP ---
Admitting History and Physical - Primary Care Physician PCP: Vinny Hamm - Admission Chief Complaint: I'm short of breath History of Present Illness: Mr Krishnamurthy is a pleasant 67 year old male who comes in from dialysis with shortness of breath. He says that since he was last discharged he has been wearing his oxygen at all times. However he has been getting progressively getting more short of breath. It is mainly dyspnea on exertion but has been progressing to at rest as well. He has orthopnea associated with it. He has a non-productive cough with this as well. He was at HD today and was noted to be tachycardic and hypoxic on oxygen with his oxygen saturations in the 80s. He came here for further evaluation. He denies lightheadedness, dizziness, passing out, fevers, chills, chest pain or pressure, nausea, vomiting, diarrhea, constipation, or swelling. He is now on 100% NRB and is saturating well but still has some shortness of breath. Also requesting to be discharged tomorrow as he has an appointment in the city for his pulmonary hypertension and he had to wait months to see. 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 with agents including mycophenolate, Cytoxan , tacrolimus, prednisone, intravenous rituximab and Acthar Gel) ), Hemodialysis Heme/Onc: Yes: Anemia Endocrine: Yes: Hyperparathyroidism, Other (Multinodular goiter) - Past Surgical History Past Surgical History: Yes: AV Fistula/Graft (left arm) - Smoking History Smoking history: Former smoker Have you smoked in the past 12 months: No If you are a former smoker, when did you quit?: 10 years ago - Alcohol/Substance Use Hx Alcohol Use: No History of Substance Use: reports: None - Social History Usual Living Arrangement: Yes: With Spouse ADL: Independent History of Recent Travel: No Home Medications - Allergies Allergies/Adverse Reactions: Allergies Allergy/AdvReac Type Severity Reaction Status Date / Time No Known Allergies Allergy Verified 11/10/17 14:48 - Home Medications Home Medications: Ambulatory Orders Alfuzosin HCl [Uroxatral] 10 mg PO DAILY 12/08/17 Aspirin [Aspirin EC] 81 mg PO DAILY 12/08/17 Carvedilol [Coreg -] 3.125 mg PO BID 12/08/17 Furosemide [Lasix] 40 mg PO DAILY 12/08/17 Losartan Potassium [Cozaar] 50 mg PO DAILY 12/08/17 Rosuvastatin [Crestor -] 20 mg PO HS 12/08/17 Sevelamer Carbonate [Renvela] 1,600 mg PO TID 12/08/17 Family Disease History - Family Disease History Family History: Unremarkable Review of Systems Findings/Remarks: Full review of systems obtained, as per HPI and otherwise negative. Physical Examination Vital Signs: Vital Signs Temperature 36.4 C L 12/08/17 11:25 Pulse Rate 111 H 12/08/17 11:25 Respiratory Rate 18 12/08/17 11:25 Blood Pressure 111/75 12/08/17 11:25 O2 Sat by Pulse Oximetry (%) 92 L 12/08/17 11:25 Constitutional: Yes: Well Nourished, No Distress, Calm Eyes: Yes: Conjunctiva Clear, EOM Intact, PERRL HENT: Yes: Atraumatic, Normocephalic Cardiovascular: Yes: Tachycardia. No: Gallop, Murmur, Rub Respiratory: Yes: CTA Bilaterally, On Venti-Mask, Tachypnea. No: Regular, Rales , Rhonchi, Wheezes Gastrointestinal: Yes: Normal Bowel Sounds, Soft. No: Distention, Tenderness Extremities: Yes: WNL Edema: No Labs: CBC, BMP 12/08/17 13:11 12/08/17 13:11 Imaging - Results Chest X-ray: Image Reviewed Problem List - Problems (1) Acute and chronic respiratory failure with hypoxia Assessment/Plan: -patient very hypoxic on presentation, requiring NRB -will trial decreasing his oxygen to venti mask -? if acute (fluid overload needing HD), or progression of severe pulmonary HTN -case d/w Dr Mackenzie to see if can do HD today -consult pulmonary as well Code(s): J96.21 - ACUTE AND CHRONIC RESPIRATORY FAILURE WITH HYPOXIA (2) COPD (chronic obstructive pulmonary disease) Assessment/Plan: -suspect patient may have COPD exacerbation associated with this -consult pulmonary -bronchodilators Code(s): J44.9 - CHRONIC OBSTRUCTIVE PULMONARY DISEASE, UNSPECIFIED Qualifiers: COPD type: COPD with acute exacerbation Qualified Code(s): J44.1 - Chronic obstructive pulmonary disease with (acute) exacerbation (3) ESRD (end stage renal disease) Assessment/Plan: -case d/w Dr Mackenzie -will see in consultation and decide on HD timing Code(s): N18.6 - END STAGE RENAL DISEASE (4) CHF (congestive heart failure) Assessment/Plan: -HD per Dr Mackenzie -monitor if fluid removal improves hypoxia -acute on chronic diastolic dysfunction Code(s): I50.9 - HEART FAILURE, UNSPECIFIED (5) HLD (hyperlipidemia) Assessment/Plan: -continue crestor Code(s): E78.5 - HYPERLIPIDEMIA, UNSPECIFIED Qualifiers: Hyperlipidemia type: pure hypercholesterolemia Qualified Code(s): E78.00 - Pure hypercholesterolemia, unspecified; E78.0 - Pure hypercholesterolemia (6) HTN (hypertension) Assessment/Plan: -continue lasix, losartan, and coreg -monitor Code(s): I10 - ESSENTIAL (PRIMARY) HYPERTENSION Qualifiers: Hypertension type: essential hypertension Qualified Code(s): I10 - Essential (primary) hypertension (7) Hyperparathyroidism due to ESRD on dialysis Assessment/Plan: -continue renvela Code(s): E21.3 - HYPERPARATHYROIDISM, UNSPECIFIED; N18.6 - END STAGE RENAL DISEASE; Z99.2 - DEPENDENCE ON RENAL DIALYSIS (8) Pulmonary HTN Assessment/Plan: -consult pulmonary -has appt with pulmonary HTN specialist in the city -will re-evaluate tomorrow but doubt will be able to discharge safely by tomorrow am Code(s): I27.20 - PULMONARY HYPERTENSION, UNSPECIFIED
--- NOTE | 2017-12-08 15:38 | CONSULT ---
Consult Consult Specialty:: Renal Referred by:: Dr. Diaz - History of Present Illness History of Present Illness: 67 yo M h/o ESRD on HD (MWF), COPD, ILD, pulmonary HTN BIBEMS from dialysis center due to sob and hypoxia. While getting dialysis this morning, patient became short of breath, tachycardic and hypoxic. Patient also endorses worsening dyspnea on exertion lately. He's scheduled to see a puln. HTN on . Denies fever, chills, hemoptysis, chest pain or swelling. 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 with agents including mycophenolate, Cytoxan , tacrolimus, prednisone, intravenous rituximab and Acthar Gel) ), Hemodialysis Endocrine: Yes: Hyperparathyroidism, Other (Multinodular goiter) - Past Surgical History Past Surgical History: Yes: AV Fistula/Graft (left arm) - Alcohol/Substance Use Hx Alcohol Use: No History of Substance Use: reports: None - Smoking History Smoking history: Former smoker Have you smoked in the past 12 months: No If you are a former smoker, when did you quit?: 10 years ago - Social History Usual Living Arrangement: With Spouse ADL: Independent History of Recent Travel: No Home Medications - Allergies Allergies/Adverse Reactions: Allergies Allergy/AdvReac Type Severity Reaction Status Date / Time No Known Allergies Allergy Verified 11/10/17 14:48 - Home Medications Home Medications: Ambulatory Orders Alfuzosin HCl [Uroxatral] 10 mg PO DAILY 12/08/17 Aspirin [Aspirin EC] 81 mg PO DAILY 12/08/17 Carvedilol [Coreg -] 3.125 mg PO BID 12/08/17 Furosemide [Lasix] 40 mg PO DAILY 12/08/17 Losartan Potassium [Cozaar] 50 mg PO DAILY 12/08/17 Rosuvastatin [Crestor -] 20 mg PO HS 12/08/17 Sevelamer Carbonate [Renvela] 1,600 mg PO TID 12/08/17 Review of Systems - Review of Systems Constitutional: reports: Lethargy Cardiovascular: reports: Shortness of Breath. denies: Edema Respiratory: reports: Orthopnea, SOB, SOB on Exertion Gastrointestinal: denies: Abdominal Pain Genitourinary: reports: No Symptoms Physical Exam Vital Signs: Vital Signs Temperature 97.5 F L 12/08/17 11:25 Pulse Rate 111 H 12/08/17 11:25 Respiratory Rate 18 12/08/17 11:25 Blood Pressure 111/75 12/08/17 11:25 O2 Sat by Pulse Oximetry (%) 92 L 12/08/17 11:25 Constitutional: Yes: Moderate Distress Eyes: Yes: Conjunctiva Clear, EOM Intact HENT: Yes: Atraumatic, Normocephalic Cardiovascular: Yes: Regular Rate and Rhythm, S1, S2. No: Murmur Respiratory: Yes: Poor Air Entry (in b/l bases), Wheezes (very minimal b/l) Gastrointestinal: Yes: Normal Bowel Sounds, Soft. No: Tenderness Extremities: No: Calf Tenderness, Erythema Edema: No Psychiatric: Yes: Alert, Oriented Labs: CBC, BMP 12/08/17 13:11 12/08/17 13:11 Imaging - Results Chest X-ray: Image Reviewed Assessment/Plan 67 yo M admitted to the hospital for acute on chronic hypomexic respiratory failure. Acute on chronic hypoxemic respiratory failure ESRD on HD ILD COPD exacerbation CHF Pulm. HTN - Closely monitor respiratory status - NRB supplemental O2 - Will dialyze today to remove excess fluid - Resume lasix, lorsatan and coreg - Cont. to monitor Paulino Roberto Pager: [phone] Visit type - Emergency Visit Emergency Visit: Yes ED Registration Date: 12/08/17 Care time: The patient presented to the Emergency Department on the above date and was hospitalized for further evaluation of their emergent condition. - New Patient This patient is new to me today: Yes Date on this admission: 12/08/17 - Critical Care Critical Care patient: No
[2017-12-08] MEDS ORDERED: ALBUTEROL SO4 0.083% IH SOL 2.5 MG/3 ML VIAL.NEB. NEB SCH (16:00)
[2017-12-08] MEDS ORDERED: SODIUM CHLORIDE 250 ML IV PRN (16:13)
--- NOTE | 2017-12-08 16:41 | CON.CARD ---
Cardiology Consult (text) - Consultation Consultation Note: Cardiology Consult Dictated
--- NOTE | 2017-12-08 16:58 | PN ---
Teaching Attending Note Name of Resident: Paulino Mejia (Nephrology) ATTENDING PHYSICIAN STATEMENT I saw and evaluated the patient. I reviewed the resident's note and discussed the case with the resident. I agree with the resident's findings and plan as documented. Nephrology Consult Pt is a 67 year old make who was sent in from HD for tachycardia and hypotension. He initially went to HD on Friday where he was hypotensive and tachycardic. He refused to go to ER at that time. He waited for about 20 minutes and his pressure improved. He then started HD and finished uneventfully. He went to HD again today and was hypotenive. We again recommended that he goes to the ER for evaluation. He initially refused but then he agreed. He says that he has chronic shortness of breath and that he gets SOB with minimal exertion. He denies chest pain. He had an appointment tomorrow with a pulm htn specialist. pmhx esrd pulm htn chf cad hypoxia pshx avf nkda social denies Current Medications Generic Name Dose Route Start Last Admin Trade Name Freq PRN Reason Stop Dose Admin Albuterol Sulfate 1 amp 12/08/17 16:00 Ventolin 0.083% Nebulizer Soln - NEB RQID EARL Aspirin 81 mg 12/09/17 10:00 Ecotrin - PO DAILY EARL Carvedilol 3.125 mg 12/08/17 22:00 Coreg - PO BID EARL Furosemide 40 mg 12/09/17 10:00 Lasix - PO DAILY EARL Heparin Sodium (Porcine) 5,000 unit 12/08/17 22:00 Heparin - SQ TID EARL Sodium Chloride 250 mls @ 3,000 mls/hr 12/08/17 16:13 Normal Saline - IV 12/09/17 16:13 PRN PRN Hypotension during Dialysis Losartan Potassium 50 mg 12/09/17 10:00 Cozaar - PO DAILY EARL Rosuvastatin Calcium 20 mg 12/08/17 22:00 Crestor - PO HS EARL Sevelamer Carbonate 1,600 mg 12/08/17 17:30 Renvela - PO TIDCM EAR[facility] Tamsulosin HCl 0.4 mg 12/09/17 08:30 Flomax - PO DAILY@0830 E[facility] Tiotropium [place] 1 puff 12/09/17 10:00 Spiriva - IH DAILY EAR[facility] Last Vital Signs Temp Pulse Resp BP Pulse Ox 97.5 F L 109 H 20 95/63 93 L 12/08/17 11:25 12/08/17 15:45 12/08/17 15:45 12/08/17 15:45 12/08/17 15:45 Impression 1. ESRD 2. CHF 3. anemia 4. HTN 5. hyperlipidemia 6. hypoxia 7. pulm hypertension 8. CAD Plan - HD today - monitor bp - pulmonary eval - repeat labs in am - cont with oxygen - HD tomorrow as outpt - pulm input appreciated - pt to follow up with specialist in the city - pt will use oxygen continuously - will follow
--- NOTE | 2017-12-08 17:14 | PN ---
Progress Note (short form) - Note Progress Note: PULMONARY CONSULTATION DICTATED 12/08/17 IMP ACUTE ON CHRONIC HYPOXEMIC RESPIRATORY FAILURE LIKELY FLUID OVERLOAD COPD PULMONARY HTN ESRD ON HD GERD ? [facility] PLAN HD PER RENAL O2 TO MAINTAIN SATURATION > 90% INHALED BRONCHODILATORS MEDROL X 48HRS DAILY WT CHEST CT SLEEP STUDIES OUTPATIENT DR JENKINS Problem List - Problems (1) Acute and chronic respiratory failure with hypoxia Code(s): J96.21 - ACUTE AND CHRONIC RESPIRATORY FAILURE WITH HYPOXIA (2) CHF (congestive heart failure) Code(s): I50.9 - HEART FAILURE, UNSPECIFIED (3) CKD (chronic kidney disease) stage 5, GFR less than 15 ml/min Code(s): N18.5 - CHRONIC KIDNEY DISEASE, STAGE 5 (4) COPD (chronic obstructive pulmonary disease) Code(s): J44.9 - CHRONIC OBSTRUCTIVE PULMONARY DISEASE, UNSPECIFIED Qualifiers: COPD type: COPD with acute exacerbation Qualified Code(s): J44.1 - Chronic obstructive pulmonary disease with (acute) exacerbation (5) Dyspnea, unspecified Code(s): R06.00 - DYSPNEA, UNSPECIFIED Qualifiers: Dyspnea type: dyspnea on exertion Qualified Code(s): R06.09 - Other forms of dyspnea (6) ESRD (end stage renal disease) Code(s): N18.6 - END STAGE RENAL DISEASE (7) Emphysema lung Code(s): J43.9 - EMPHYSEMA, UNSPECIFIED (8) GERD (gastroesophageal reflux disease) Code(s): K21.9 - GASTRO-ESOPHAGEAL REFLUX DISEASE WITHOUT ESOPHAGITIS (9) HLD (hyperlipidemia) Code(s): E78.5 - HYPERLIPIDEMIA, UNSPECIFIED Qualifiers: Hyperlipidemia type: pure hypercholesterolemia Qualified Code(s): E78.00 - Pure hypercholesterolemia, unspecified; E78.0 - Pure hypercholesterolemia (10) Pulmonary HTN Code(s): I27.20 - PULMONARY HYPERTENSION, UNSPECIFIED
--- NOTE | 2017-12-08 17:56 | CONS ---
PULMONARY CONSULTATION DATE OF CONSULTATION: 12/08/2017 REFERRING PHYSICIAN: Yogesh Diaz MD The patient is a 67-year-old white male with past medical history of end-stage renal disease on hemodialysis since May; COPD with chronic hypoxemic respiratory failure; interstitial lung disease, unknown etiology; pulmonary hypertension; cardiac catheterization was nitroglycerin responsive, who was admitted to [facility] secondary to shortness of breath and hypoxemia. Patient apparently was at dialysis center this morning and had increasing shortness of breath and tachycardia and became more hypoxic. He also was noted to be hypotensive. Apparently, for the past week or so, he has been developing progressive shortness of breath and dyspnea on exertion. Would only ambulate a few steps without having severe dyspnea. He is currently maintained on home O2 at 3 L, but at times, takes it off when he feels better. He apparently is scheduled to see a pulmonary hypertension specialist at [place] later this week. He has a history of tobacco use and quit 12 years ago. 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 He denies any chronic cough or hemoptysis. Denies any chest pains or palpitations. PAST MEDICAL HISTORY: Again includes interstitial lung disease of unknown etiology, end-stage renal disease on hemodialysis, COPD, hypertension, severe pulmonary hypertension, history of idiopathic membranous nephropathy which initially was diagnosed in 2006, which has failed to respond to immunosuppressive therapy. There is also again a history of tobacco use, quit years ago. Positive occupational exposures. REVIEW OF SYSTEMS: Positive orthopnea. Positive dyspnea. No cough. No chest pain. No palpitations. No hemoptysis. No abdominal pain. Positive dyspnea on exertion. No lower extremity edema. MEDICATIONS PRIOR TO ADMISSION: Included, aspirin, Coreg, Lasix, Cozaar, Crestor, and Renvela. CURRENT MEDICATIONS: Include Flomax, Cozaar, heparin, Spiriva, albuterol, Coreg , normal saline, Crestor, Lasix, Ecotrin, Renvela. PHYSICAL EXAMINATION: General: The patient is a well-developed, well-nourished male, awake, alert, mildly dyspneic. No acute distress. Currently undergoing hemodialysis. Vital Signs: He is afebrile. Blood pressure is 95/63. Respiratory rate is 20. O2 saturation is 93% on 5 L. HEENT: Normocephalic, atraumatic. Neck: Supple. Heart: Regular. S1, S2. Chest: A few bibasilar crackles. Abdomen: Soft. Bowel sounds are positive. Extremities: No cyanosis or edema. LABORATORY DATA: WBC is 7.7, hemoglobin of 12, hematocrit 35.8, with a platelet count of 180,000. INR is 1.32. Venous blood gas 7.44, pCO2 of 35, a pO2 of 37, bicarbonate of 23. Electrolytes: BUN 55, creatinine 6.4. BNP is 78,502. Chest x-ray shows cardiomegaly. No acute infiltrates and/or effusions. IMPRESSION: 1. [id number]-rg-uwuszhy hypoxemic respiratory failure secondary to multiple factors : A. Likely mild fluid overload. B. Mild congestive heart failure. 2. Chronic obstructive pulmonary disease with exacerbation. 3. Severe pulmonary hypertension. 4. End-stage renal disease on hemodialysis. 5. Hypotension. PLAN: Hemodialysis as per Renal, inhaled bronchodilators, supplemental O2, daily weights, follow up CT scan of the chest, compliance with oxygen. Consider sleep study post discharge, see if patient has a component of sleep apnea which may contributing to his pulmonary hypertension. ALEXANDRA JENKINS M.D. ADENIKE/[id number] MTDD
--- NOTE | 2017-12-08 18:37 | CONS ---
CARDIOLOGY CONSULTATION DATE OF CONSULTATION: 12/08/2017 REQUESTING PHYSICIAN: Yogesh Diaz MD The patient is a 67-year-old male well known to me from office practice and prior hospitalizations. His past medical history is significant for end-stage renal disease on dialysis; nonobstructive coronary disease; [id number] chronic pulmonary hypertension, proven on cardiac catheterization at [facility]; possible /suspected interstitial lung disease, who is now admitted from dialysis for several days of persistent hypoxemia while on oxygen and elevated heart rate. In the emergency room, he was found to be in sinus tachycardia. His daughter had called me on Friday, reporting oxygen saturations of 88% on 5 L and I strongly recommended he come the ER for further work up, but he did not come because he did not want to miss an outpatient appointment he had scheduled at [place] this week with the Pulmonary Hypertension specialist. The patient states that he has been compliant with his home O2, wearing it 24 hours a day. Previously, he has had episodes of noncompliance, taking his oxygen off with severe exertional desaturation. He denies fevers, chills, or cough. He denies chest pain, palpitations, or edema. He has had several outpatient pulmonary opinions regarding his pulmonary hypertension; a recent CT scan showed possible interstitial lung disease and adenopathy - a biopsy was deferred because he was felt to be too high risk. PAST MEDICAL HISTORY: Is as outlined above and also includes BPH, hyperlipidemia, and systemic hypertension. ALLERGIES: None. HOME MEDICATIONS: Include Lasix 40 mg p.o. daily, Uroxatral 10 mg daily, Renvela, Crestor 20 mg nightly, losartan 50 mg daily, carvedilol 3.125 b.i.d., aspirin 81 mg daily. FAMILY HISTORY: Noncontributory. SOCIAL HISTORY: Former smoker, quit 10 years ago. Lives at home with . PHYSICAL EXAMINATION: General: No distress. Vital Signs: Temperature 97.5; pulse 110, sinus tachycardia; BP: 111/75, O2 saturation 93 on 5L HEENT: Anicteric. Neck: There is mild elevation of the jugular venous pulsation. Chest: With scattered rhonchi. No rales. Heart: S1, S2. Soft systolic murmur, right sternal border, increases with inspiration. Abdomen: Mildly distended, nontender. Extremities: With 1+ bilateral edema. Chest x-ray was reviewed, showing cardiomegaly with no acute disease. ECG: ST 114bpm, LAE. Right [place], RVH, NSST changes. QTc 405ms. LABORATORY DATA: Sodium 143, creatinine 6.4 - (dialysis), AST 50, ALT 86. CK/ troponin negative x1 set. VBG shows pH 7.44, pCO2 of 35, pO2 of 37. INR 1.32. White count 7.7, hematocrit 36, platelets 180. IMPRESSION: 1. Chronic, moderate-severe pulmonary hypertension. 2. Possible interstitial lung disease, mediastinal adenopathy. 3. End-stage renal disease on dialysis. 4. Sinus tachycardia, likely due to chronic hypoxemia, PHTN. PLAN: 1. Supplemental O2. 2. Dialysis as tolerated. 3. Pulmonary consultation. 4. Patient has normal LV function with no significant valve disease and cardiac catheterization showing non-obstructive coronary disease. His dyspnea is most likely due to chronic hypoxemia secondary to pulmonary hypertension, possibly secondary to interstitial lung disease. Further work up as per Pulmonary. Will follow. Thank you for the consultation. KELVIN NO M.D. [id number] MTDD
[2017-12-08] MEDS: SEVELAMER CARBONATE 800 MG TAB (FP) PO SCH (21:05)
[2017-12-08] MEDS: ALBUTEROL SO4 0.083% IH SOL 2.5 MG/3 ML VIAL.NEB. NEB PRN (21:34)
[2017-12-08] MEDS: BUDESONIDE/FORMETEROL FUMARATE 80/4.5 mcg INHALER IH SCH (21:54)
[2017-12-08] MEDS: methylPREDNISolone NA SUCC 40 MG/1 ML VIAL IVPUSH SCH (21:54)
[2017-12-08] MEDS: HEPARIN NA (PORCINE) 5,000 UNITS/ML 1ML VIAL SQ SCH (21:54)
[2017-12-08] MEDS: CARVEDILOL 3.125 MG TABLET (FP) PO SCH (21:55)
[2017-12-08] MEDS: ROSUVASTATIN CA 20 MG TABLET (FP) PO SCH (21:55)
[2017-12-09] MEDS: methylPREDNISolone NA SUCC 40 MG/1 ML VIAL IVPUSH SCH ×4 (02:22→21:05)
[2017-12-09] MEDS: HEPARIN NA (PORCINE) 5,000 UNITS/ML 1ML VIAL SQ SCH ×3 (06:09→21:05)
[2017-12-09 07:41] LABS: BASO % 0.2 % (0-2.0); EOS % 0.1 % (0-4.5); HEMATOCRIT 34.4 % (35.4-49); HEMOGLOBIN 11.7 GM/dL (11.7-16.9); LYMPH % 7.9 % (8-40); MCH 36.3 pg (25.7-33.7); MEAN CELL VOLUME 106.9 fl (80-96); MEAN PLT VOLUME 9.3 fl (7.5-11.1); NEUT % 88.8 % (42.8-82.8); PLATELET COUNT 133 K/MM3 (134-434); RBC 3.22 M/mm3 (4.00-5.60); WHITE BLOOD COUNT 5.1 K/mm3 (4.0-10.0)
[2017-12-09] MEDS: SEVELAMER CARBONATE 800 MG TAB (FP) PO SCH ×3 (08:12→17:51)
[2017-12-09] MEDS: TAMSULOSIN HCL 0.4 MG CAP.ER.24H (FP) PO SCH (08:12)
[2017-12-09 08:15] LABS: ANION GAP 13 (8-16); BLOOD UREA NITROGEN 38 mg/dL (7-18); CALCIUM 8.6 mg/dL (8.5-10.1); CHLORIDE 100 mmol/L (98-107); CO2 25 mmol/L (21-32); CREATININE 5.3 mg/dL (0.7-1.3); GLUCOSE,RANDOM 191 mg/dL (74-106); MAGNESIUM 2.5 mg/dL (1.8-2.4); PHOSPHOROUS 5.2 mg/dL (2.5-4.9); POTASSIUM 4.8 mmol/L (3.5-5.1); SODIUM 138 mmol/L (136-145)
--- NOTE | 2017-12-09 09:30 | PN ---
Progress Note, Physician Chief Complaint: no chest pain - Current Medication List Current Medications: Active Medications Albuterol Sulfate (Ventolin 0.083% Nebulizer Soln -) 1 amp NEB Q4H PRN PRN Reason: SHORT OF BREATH/WHEEZING Last Admin: 12/08/17 21:34 Dose: 1 amp Aspirin (Ecotrin -) 81 mg PO DAILY [facility] Budesonide/Formoterol Fumarate (Symbicort 80/4.5mcg -) 2 puff IH BID [facility] Last Admin: 12/08/17 21:54 Dose: 2 puff Carvedilol (Coreg -) 3.125 mg PO BID [facility] Last Admin: 12/08/17 21:55 Dose: Not Given Furosemide (Lasix -) 40 mg PO DAILY [facility] Heparin Sodium (Porcine) (Heparin -) 5,000 unit SQ TID [facility] Last Admin: 12/09/17 06:09 Dose: 5,000 unit Sodium Chloride (Normal Saline -) 250 mls @ 3,000 mls/hr IV PRN PRN PRN Reason: Hypotension during Dialysis Stop: 12/09/17 16:13 Losartan Potassium (Cozaar -) 50 mg PO DAILY [facility] Methylprednisolone Sodium Succinate (Solu-Medrol -) 40 mg IVPUSH Q6H-IV [facility] Last Admin: 12/09/17 08:12 Dose: 40 mg Rosuvastatin Calcium (Crestor -) 20 mg PO HS [facility] Last Admin: 12/08/17 21:55 Dose: 20 mg Sevelamer Carbonate (Renvela -) 1,600 mg PO TIDCM [facility] Last Admin: 12/09/17 08:12 Dose: 1,600 mg Tamsulosin HCl (Flomax -) 0.4 mg PO DAILY@0830 [facility] Last Admin: 12/09/17 08:12 Dose: 0.4 mg Tiotropium [place] (Spiriva -) 1 puff IH DAILY [facility] - Objective Vital Signs: Vital Signs Temperature 98.3 F 12/09/17 07:00 Pulse Rate 104 H 12/09/17 07:00 Respiratory Rate 20 12/09/17 07:00 Blood Pressure 111/73 12/09/17 07:00 O2 Sat by Pulse Oximetry (%) 92 L 12/09/17 05:15 Constitutional: Yes: No Distress Cardiovascular: Yes: Regular Rate and Rhythm Respiratory: Yes: Rhonchi (no wheezing), Other Gastrointestinal: Yes: Soft Edema: Yes Edema: LLE: 1+, RLE: 1+ Neurological: Yes: Alert, Oriented Labs: CBC, BMP 12/09/17 06:30 12/09/17 06:30 INR, PTT INR 1.32 (0.82-1.09) H 12/08/17 13:11 Laboratory Tests 12/09/17 12/09/17 06:30 06:30 WBC 5.1 D Hgb 11.7 Plt Count 133 L D Sodium 138 Potassium 4.8 D Magnesium 2.5 H Assessment/Plan IMP: Moderate to severe PHTN Chronic hypoxemia ?ILD ESRD REC: 1. Supplimental O2 2. HD 3. Further work up PHTN as per Pulmonary
[2017-12-09] MEDS: ALBUTEROL SO4 0.083% IH SOL 2.5 MG/3 ML VIAL.NEB. NEB PRN (09:47)
[2017-12-09] MEDS ORDERED: LOSARTAN POTASSIUM 25 MG TABLET PO SCH (10:00)
[2017-12-09] MEDS: FUROSEMIDE 40 MG TABLET (FP) PO SCH (11:30)
[2017-12-09] MEDS: ASPIRIN COATED 81 MG TABLET.EC PO SCH (11:30)
[2017-12-09] MEDS: CARVEDILOL 3.125 MG TABLET (FP) PO SCH ×2 (11:30→21:05)
[2017-12-09] MEDS: BUDESONIDE/FORMETEROL FUMARATE 80/4.5 mcg INHALER IH SCH ×2 (11:31→21:05)
[2017-12-09] MEDS: TIOTROPIUM BROMIDE 18 MCG CAPSULES IH SCH (11:31)
--- NOTE | 2017-12-09 11:58 | EKG ---
Test Reason : Blood Pressure : / mmHG Vent. Rate : 114 BPM Atrial Rate : 114 BPM P-R Int : 146 ms QRS Dur : 066 ms QT Int : 294 ms P-R-T Axes : 069 134 203 degrees QTc Int : 405 ms SINUS TACHYCARDIA POSSIBLE LEFT ATRIAL ENLARGEMENT RIGHT AXIS DEVIATION RIGHT VENTRICULAR HYPERTROPHY NONSPECIFIC T WAVE ABNORMALITY ABNORMAL ECG Confirmed by MD KEILA, ELLIOTT ([id number]) on 12/09/2017 11:58:08 AM Referred By: Confirmed By:ELLIOTT PEDRAZA MD
--- NOTE | 2017-12-09 12:33 | PN ---
Progress Note, Physician Chief Complaint: Mr Krishnamurthy remains short of breath and hypoxic. No cp or n/v. - Current Medication List Current Medications: Active Medications Albuterol Sulfate (Ventolin 0.083% Nebulizer Soln -) 1 amp NEB Q4H PRN PRN Reason: SHORT OF BREATH/WHEEZING Last Admin: 12/09/17 09:47 Dose: 1 amp Aspirin (Ecotrin -) 81 mg PO DAILY [facility] Last Admin: 12/09/17 11:30 Dose: 81 mg Budesonide/Formoterol Fumarate (Symbicort 80/4.5mcg -) 2 puff IH BID [facility] Last Admin: 12/09/17 11:31 Dose: 2 puff Carvedilol (Coreg -) 3.125 mg PO BID [facility] Last Admin: 12/09/17 11:30 Dose: 3.125 mg Furosemide (Lasix -) 40 mg PO DAILY [facility] Last Admin: 12/09/17 11:30 Dose: 40 mg Heparin Sodium (Porcine) (Heparin -) 5,000 unit SQ TID [facility] Last Admin: 12/09/17 06:09 Dose: 5,000 unit Sodium Chloride (Normal Saline -) 250 mls @ 3,000 mls/hr IV PRN PRN PRN Reason: Hypotension during Dialysis Stop: 12/09/17 16:13 Losartan Potassium (Cozaar -) 50 mg PO DAILY [facility] Last Admin: 12/09/17 11:30 Dose: 50 mg Methylprednisolone Sodium Succinate (Solu-Medrol -) 40 mg IVPUSH Q6H-IV [facility] Last Admin: 12/09/17 08:12 Dose: 40 mg Rosuvastatin Calcium (Crestor -) 20 mg PO HS [facility] Last Admin: 12/08/17 21:55 Dose: 20 mg Sevelamer Carbonate (Renvela -) 1,600 mg PO TIDCM [facility] Last Admin: 12/09/17 11:35 Dose: 1,600 mg Tamsulosin HCl (Flomax -) 0.4 mg PO DAILY@0830 [facility] Last Admin: 12/09/17 08:12 Dose: 0.4 mg Tiotropium [place] (Spiriva -) 1 puff IH DAILY [facility] Last Admin: 12/09/17 11:31 Dose: 1 puff - Objective Vital Signs: Vital Signs Temperature 36.6 C 12/09/17 11:37 Pulse Rate 110 H 12/09/17 11:37 Respiratory Rate 20 12/09/17 11:37 Blood Pressure 110/72 12/09/17 11:37 O2 Sat by Pulse Oximetry (%) 92 L 12/09/17 05:15 Constitutional: Yes: Well Nourished, Calm, Mild Distress Cardiovascular: Yes: Tachycardia. No: Pulse Irregular, Gallop, Murmur, Rub Respiratory: Yes: CTA Bilaterally, On Venti-Mask, Tachypnea. No: Regular, Rales , Rhonchi, Wheezes Gastrointestinal: Yes: Normal Bowel Sounds, Soft. No: Distention, Tenderness Extremities: Yes: WNL Edema: No Labs: CBC, BMP 12/09/17 06:30 12/09/17 06:30 INR, PTT INR 1.32 (0.82-1.09) H 12/08/17 13:11 Problem List - Problems (1) Acute and chronic respiratory failure with hypoxia Code(s): J96.21 - ACUTE AND CHRONIC RESPIRATORY FAILURE WITH HYPOXIA (2) COPD (chronic obstructive pulmonary disease) Code(s): J44.9 - CHRONIC OBSTRUCTIVE PULMONARY DISEASE, UNSPECIFIED Qualifiers: COPD type: COPD with acute exacerbation Qualified Code(s): J44.1 - Chronic obstructive pulmonary disease with (acute) exacerbation (3) ESRD (end stage renal disease) Code(s): N18.6 - END STAGE RENAL DISEASE (4) CHF (congestive heart failure) Code(s): I50.9 - HEART FAILURE, UNSPECIFIED (5) HLD (hyperlipidemia) Code(s): E78.5 - HYPERLIPIDEMIA, UNSPECIFIED Qualifiers: Hyperlipidemia type: pure hypercholesterolemia Qualified Code(s): E78.00 - Pure hypercholesterolemia, unspecified; E78.0 - Pure hypercholesterolemia (6) HTN (hypertension) Code(s): I10 - ESSENTIAL (PRIMARY) HYPERTENSION Qualifiers: Hypertension type: essential hypertension Qualified Code(s): I10 - Essential (primary) hypertension (7) Hyperparathyroidism due to ESRD on dialysis Code(s): E21.3 - HYPERPARATHYROIDISM, UNSPECIFIED; N18.6 - END STAGE RENAL DISEASE; Z99.2 - DEPENDENCE ON RENAL DIALYSIS (8) Pulmonary HTN Code(s): I27.20 - PULMONARY HYPERTENSION, UNSPECIFIED Assessment/Plan (1) Acute and chronic respiratory failure with hypoxia Assessment/Plan: -patient remains very hypoxic, requiring at least 50% venti mask at rest -CT scan images reviewed, awaiting official read -discussing case with pulmonary, ? if needs transfer to tertiary care center -will talk with [facility] to see if they accept transfer Code(s): J96.21 - ACUTE AND CHRONIC RESPIRATORY FAILURE WITH HYPOXIA (2) COPD (chronic obstructive pulmonary disease) Assessment/Plan: -possible COPD exacerbation, but hypoxia is multifactorial -on bronchodilators -started on solumedrol -continue oxygen support Code(s): J44.9 - CHRONIC OBSTRUCTIVE PULMONARY DISEASE, UNSPECIFIED Qualifiers: COPD type: COPD with acute exacerbation Qualified Code(s): J44.1 - Chronic obstructive pulmonary disease with (acute) exacerbation (3) ESRD (end stage renal disease) Assessment/Plan: -case d/w Dr Mackenzie -dialyzed yesterday -agrees with transfer to [facility] Code(s): N18.6 - END STAGE RENAL DISEASE (4) CHF (congestive heart failure) Assessment/Plan: -appreciate cardiology assistance -continue HD and lasix Code(s): I50.9 - HEART FAILURE, UNSPECIFIED (5) HLD (hyperlipidemia) Assessment/Plan: -continue crestor Code(s): E78.5 - HYPERLIPIDEMIA, UNSPECIFIED Qualifiers: Hyperlipidemia type: pure hypercholesterolemia Qualified Code(s): E78.00 - Pure hypercholesterolemia, unspecified; E78.0 - Pure hypercholesterolemia (6) HTN (hypertension) Assessment/Plan: -continue lasix, losartan, and coreg -controlled Code(s): I10 - ESSENTIAL (PRIMARY) HYPERTENSION Qualifiers: Hypertension type: essential hypertension Qualified Code(s): I10 - Essential (primary) hypertension (7) 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 if would benefit from transfer, will await their evaluation Code(s): I27.20 - PULMONARY HYPERTENSION, UNSPECIFIED
--- NOTE | 2017-12-09 13:03 | PN ---
Progress Note (short form) - Note Progress Note: Awake and alert on 50% VM O2. Mildly tachypneic at rest but able to speak in full sentences No CP. CT Chest: No nodules/masses/ minimal pleural effusions/ no infiltrates / no significant ILD / moderate pericardial effusion Intake & Output 12/06/17 12/07/17 12/08/17 12/09/17 23:59 23:59 23:59 23:59 Intake Total 200 100 Balance 200 100 Weight 151 lb 14.4 oz Last Vital Signs Temp Pulse Resp BP Pulse Ox 98 F 110 H 20 110/72 92 L 12/09/17 11:37 12/09/17 11:37 12/09/17 11:37 12/09/17 11:37 12/09/17 05:15 Active Medications Albuterol Sulfate (Ventolin 0.083% Nebulizer Soln -) 1 amp NEB Q4H PRN PRN Reason: SHORT OF BREATH/WHEEZING Last Admin: 12/09/17 09:47 Dose: 1 amp Aspirin (Ecotrin -) 81 mg PO DAILY [facility] Last Admin: 12/09/17 11:30 Dose: 81 mg Budesonide/Formoterol Fumarate (Symbicort 80/4.5mcg -) 2 puff IH BID [facility] Last Admin: 12/09/17 11:31 Dose: 2 puff Carvedilol (Coreg -) 3.125 mg PO BID [facility] Last Admin: 12/09/17 11:30 Dose: 3.125 mg Furosemide (Lasix -) 40 mg PO DAILY [facility] Last Admin: 12/09/17 11:30 Dose: 40 mg Heparin Sodium (Porcine) (Heparin -) 5,000 unit SQ TID [facility] Last Admin: 12/09/17 06:09 Dose: 5,000 unit Sodium Chloride (Normal Saline -) 250 mls @ 3,000 mls/hr IV PRN PRN PRN Reason: Hypotension during Dialysis Stop: 12/09/17 16:13 Losartan Potassium (Cozaar -) 50 mg PO DAILY [facility] Last Admin: 12/09/17 11:30 Dose: 50 mg Methylprednisolone Sodium Succinate (Solu-Medrol -) 40 mg IVPUSH Q6H-IV [facility] Last Admin: 12/09/17 08:12 Dose: 40 mg Rosuvastatin Calcium (Crestor -) 20 mg PO HS [facility] Last Admin: 12/08/17 21:55 Dose: 20 mg Sevelamer Carbonate (Renvela -) 1,600 mg PO TIDCM [facility] Last Admin: 12/09/17 11:35 Dose: 1,600 mg Tamsulosin HCl (Flomax -) 0.4 mg PO DAILY@0830 [facility] Last Admin: 12/09/17 08:12 Dose: 0.4 mg Tiotropium [place] (Spiriva -) 1 puff IH DAILY [facility] Last Admin: 12/09/17 11:31 Dose: 1 puff Constitutional: Yes: Awake and alert, Mildly tachypneic on 50% VM O2 Cardiovascular: Yes: Tachycardia. No: Pulse Irregular, Gallop, Murmur, Rub Respiratory: Yes: Clear, I:E mildly prolonged, no wheezing, On Venti-Mask, Mildly Tachypnea. No: Regular, Rales, Rhonchi, Wheezes Gastrointestinal: Yes: Normal Bowel Sounds, Soft. No: Distention, Tenderness Extremities: Yes: WNL Edema: No Labs: Laboratory Results - last 24 hr 12/08/17 12/08/17 12/08/17 13:11 13:11 13:11 WBC 7.7 RBC 3.33 L Hgb 12.0 D Hct 35.8 MCV 107.6 H MCH 36.0 H MCHC 33.5 RDW 15.4 Plt Count 180 MPV 9.4 Neutrophils % 78.8 Lymphocytes % 10.4 Monocytes % 9.8 Eosinophils % 0.4 Basophils % 0.6 PT with INR 14.90 H INR 1.32 H VBG pH POC VBG pCO2 POC VBG pO2 Mixed VBG HCO3 Sodium 143 Potassium 3.4 L Chloride 108 H Carbon Dioxide 23 Anion Gap 12 BUN 55 H D Creatinine 6.4 H D Creat Clearance w eGFR 8.72 Random Glucose 105 Calcium 7.1 L Phosphorus Magnesium Total Bilirubin 1.9 H AST 50 H D ALT 86 H D Alkaline Phosphatase 84 Creatine Kinase Troponin I B-Natriuretic Peptide Total Protein 5.7 L Albumin 2.9 L 12/08/17 12/08/17 12/09/17 13:11 13:11 06:30 WBC 5.1 D RBC 3.22 L Hgb 11.7 Hct 34.4 L MCV 106.9 H MCH 36.3 H MCHC 34.0 RDW 15.0 Plt Count 133 L D MPV 9.3 Neutrophils % 88.8 H Lymphocytes % 7.9 L D Monocytes % 3.0 L Eosinophils % 0.1 Basophils % 0.2 PT with INR INR VBG pH 7.44 H POC VBG pCO2 35.6 L POC VBG pO2 37.4 Mixed VBG HCO3 23.9 Sodium Potassium Chloride Carbon Dioxide Anion Gap BUN Creatinine Creat Clearance w eGFR Random Glucose Calcium Phosphorus Magnesium Total Bilirubin AST ALT Alkaline Phosphatase Creatine Kinase 43 Troponin I 0.05 D B-Natriuretic Peptide 18679.33 H Total Protein Albumin 12/09/17 06:30 WBC RBC Hgb Hct MCV MCH MCHC RDW Plt Count MPV Neutrophils % Lymphocytes % Monocytes % Eosinophils % Basophils % PT with INR INR VBG pH POC VBG pCO2 POC VBG pO2 Mixed VBG HCO3 Sodium 138 Potassium 4.8 D Chloride 100 Carbon Dioxide 25 Anion Gap 13 BUN 38 H D Creatinine 5.3 H Creat Clearance w eGFR Random Glucose 191 H D Calcium 8.6 D Phosphorus 5.2 H Magnesium 2.5 H Total Bilirubin AST ALT Alkaline Phosphatase Creatine Kinase Troponin I B-Natriuretic Peptide Total Protein Albumin Problem List - Problems (1) Acute and chronic respiratory failure with hypoxia Code(s): J96.21 - ACUTE AND CHRONIC RESPIRATORY FAILURE WITH HYPOXIA (2) CHF (congestive heart failure) Code(s): I50.9 - HEART FAILURE, UNSPECIFIED (3) CKD (chronic kidney disease) stage 5, GFR less than 15 ml/min Code(s): N18.5 - CHRONIC KIDNEY DISEASE, STAGE 5 (4) COPD (chronic obstructive pulmonary disease) Code(s): J44.9 - CHRONIC OBSTRUCTIVE PULMONARY DISEASE, UNSPECIFIED Qualifiers: COPD type: COPD with acute exacerbation Qualified Code(s): J44.1 - Chronic obstructive pulmonary disease with (acute) exacerbation (5) Dyspnea, unspecified Code(s): R06.00 - DYSPNEA, UNSPECIFIED Qualifiers: Dyspnea type: dyspnea on exertion Qualified Code(s): R06.09 - Other forms of dyspnea (6) ESRD (end stage renal disease) Code(s): N18.6 - END STAGE RENAL DISEASE (7) Emphysema lung Code(s): J43.9 - EMPHYSEMA, UNSPECIFIED (8) GERD (gastroesophageal reflux disease) Code(s): K21.9 - GASTRO-ESOPHAGEAL REFLUX DISEASE WITHOUT ESOPHAGITIS (9) HLD (hyperlipidemia) Code(s): E78.5 - HYPERLIPIDEMIA, UNSPECIFIED Qualifiers: Hyperlipidemia type: pure hypercholesterolemia Qualified Code(s): E78.00 - Pure hypercholesterolemia, unspecified; E78.0 - Pure hypercholesterolemia (10) Pulmonary HTN Code(s): I27.20 - PULMONARY HYPERTENSION, UNSPECIFIED IMP ACUTE ON CHRONIC HYPOXEMIC RESPIRATORY FAILURE DOES NOT APPEAR TO BE CLINICALLY VOLUME OVERLOADED COPD: SEEMS STABLE AT PRESENT PULMONARY HTN ESRD ON HD GERD ? OSAS: LOW SUSPICION PERICARDIAL EFFUSION (?) SHUNT CAUSING THIS DEGREE OF HYPOXEMIA PLAN HD PER RENAL O2 TO MAINTAIN SATURATION > 90% INHALED BRONCHODILATORS DAILY WT OFFICIAL CHEST CT READ TO BE REVIEWED SLEEP STUDIES OUTPATIENT POSSIBLE TRANSFER TO TERTIARY CARE FOR FURTHER WORKUP: (?) [facility] (?) BUBBLE STUDY WILL FOLLOW DR TIRADO
--- NOTE | 2017-12-09 14:17 | DS ---
Physical Examination Vital Signs: Vital Signs Temperature 36.6 C 12/09/17 11:37 Pulse Rate 110 H 12/09/17 11:37 Respiratory Rate 20 12/09/17 11:37 Blood Pressure 110/72 12/09/17 11:37 O2 Sat by Pulse Oximetry (%) 92 L 12/09/17 05:15 Constitutional: Yes: Well Nourished, Calm, Mild Distress Cardiovascular: Yes: Tachycardia. No: Pulse Irregular, Gallop, Murmur, Rub Respiratory: Yes: CTA Bilaterally, On Venti-Mask, Tachypnea. No: Rales, Rhonchi , Wheezes Gastrointestinal: Yes: Normal Bowel Sounds, Soft. No: Distention, Tenderness Extremities: Yes: WNL Edema: No Labs: CBC, BMP 12/09/17 06:30 12/09/17 06:30 Discharge Summary Reason For Visit: ELEVATED BRAIN NATRIUETIC PEPTIDE Hospital Course: (1) Acute and chronic respiratory failure with hypoxia Code(s): J96.21 - ACUTE AND CHRONIC RESPIRATORY FAILURE WITH HYPOXIA (2) COPD (chronic obstructive pulmonary disease) Code(s): J44.9 - CHRONIC OBSTRUCTIVE PULMONARY DISEASE, UNSPECIFIED Qualifiers: COPD type: COPD with acute exacerbation Qualified Code(s): J44.1 - Chronic obstructive pulmonary disease with (acute) exacerbation (3) ESRD (end stage renal disease) Code(s): N18.6 - END STAGE RENAL DISEASE (4) CHF (congestive heart failure) Code(s): I50.9 - HEART FAILURE, UNSPECIFIED (5) HLD (hyperlipidemia) Code(s): E78.5 - HYPERLIPIDEMIA, UNSPECIFIED Qualifiers: Hyperlipidemia type: pure hypercholesterolemia Qualified Code(s): E78.00 - Pure hypercholesterolemia, unspecified; E78.0 - Pure hypercholesterolemia (6) HTN (hypertension) Code(s): I10 - ESSENTIAL (PRIMARY) HYPERTENSION Qualifiers: Hypertension type: essential hypertension Qualified Code(s): I10 - Essential (primary) hypertension (7) 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 He states that since his last admission his shortness of breath has been increasing. On discharge 1 month ago he was maintained on 3L NC, even on exertion. He says he has been compliant in wearing his oxygen at home and he can do less even when wearing his oxygen. He has been presenting to HD and found to be hypoxic on his oxygen, saturating in the 80s. He has been encouraged to come into the hospital multiple times and agreed on Friday. He presented to the ED and was hypoxic, on 5L NC he was low 80%. He was placed on 100% NRB for a short time and he came up to 100%, he was decreased to 50% venti mask. He is asymptomatic at rest on 50% venti mask with saturations from 90-92%. He was seen by nephrology and emergently dialyzed to see if it was secondary to fluid overload. After HD his oxygenation did not improve. He was seen by pulmonary and trialled on bronchodilators and steroids, however also it did not improve (of note his lung exam is clear and chest CT showing small pleural effusions per my read, official read pending). Case was discussed with both nephrology and pulmonary. Considering rapid decline in the outpatient setting with minimal improvement and requiring high amount of oxygen, there was concern about his pulmonary hypertension worsening and will need further evaluation and treatment. Because of this patient would be better served at a tertiary care center that has specialist trained in treating pulmonary HTN. [facility] called and patient is accepted, we will continue intensive care here until bed is available. Patient and family made aware and agree with plan. Condition: Guarded - Instructions Diet, Activity, Other Instructions: Please return to the emergency department with any new or worsening symptoms or concerns. Please follow up with your primary care physician within 72 hours. Referrals: Vinny Hamm MD [Primary Care Provider] - - Home Medications Comprehensive Discharge Medication List: Ambulatory Orders Alfuzosin HCl [Uroxatral] 10 mg PO DAILY 12/08/17 Aspirin [Aspirin EC] 81 mg PO DAILY 12/08/17 Carvedilol [Coreg -] 3.125 mg PO BID 12/08/17 Furosemide [Lasix] 40 mg PO DAILY 12/08/17 Losartan Potassium [Cozaar] 50 mg PO DAILY 12/08/17 Rosuvastatin [Crestor -] 20 mg PO HS 12/08/17 Sevelamer Carbonate [Renvela] 1,600 mg PO TID 12/08/17
--- NOTE | 2017-12-09 14:31 | PN ---
Progress Note, Physician History of Present Illness: Pt seen and examined at bedside. He still complains of shortness of breath with minimal activity. - Current Medication List Current Medications: Active Medications Albuterol Sulfate (Ventolin 0.083% Nebulizer Soln -) 1 amp NEB Q4H PRN PRN Reason: SHORT OF BREATH/WHEEZING Last Admin: 12/09/17 09:47 Dose: 1 amp Aspirin (Ecotrin -) 81 mg PO DAILY [facility] Last Admin: 12/09/17 11:30 Dose: 81 mg Budesonide/Formoterol Fumarate (Symbicort 80/4.5mcg -) 2 puff IH BID [facility] Last Admin: 12/09/17 11:31 Dose: 2 puff Carvedilol (Coreg -) 3.125 mg PO BID [facility] Last Admin: 12/09/17 11:30 Dose: 3.125 mg Furosemide (Lasix -) 40 mg PO DAILY [facility] Last Admin: 12/09/17 11:30 Dose: 40 mg Heparin Sodium (Porcine) (Heparin -) 5,000 unit SQ TID [facility] Last Admin: 12/09/17 14:22 Dose: 5,000 unit Sodium Chloride (Normal Saline -) 250 mls @ 3,000 mls/hr IV PRN PRN PRN Reason: Hypotension during Dialysis Stop: 12/09/17 16:13 Losartan Potassium (Cozaar -) 50 mg PO DAILY [facility] Last Admin: 12/09/17 11:30 Dose: 50 mg Methylprednisolone Sodium Succinate (Solu-Medrol -) 40 mg IVPUSH Q6H-IV [facility] Last Admin: 12/09/17 14:22 Dose: 40 mg Rosuvastatin Calcium (Crestor -) 20 mg PO HS [facility] Last Admin: 12/08/17 21:55 Dose: 20 mg Sevelamer Carbonate (Renvela -) 1,600 mg PO TIDCM [facility] Last Admin: 12/09/17 11:35 Dose: 1,600 mg Tamsulosin HCl (Flomax -) 0.4 mg PO DAILY@0830 [facility] Last Admin: 12/09/17 08:12 Dose: 0.4 mg Tiotropium [place] (Spiriva -) 1 puff IH DAILY [facility] Last Admin: 12/09/17 11:31 Dose: 1 puff - Objective Vital Signs: Vital Signs Temperature 98 F 12/09/17 11:37 Pulse Rate 110 H 12/09/17 11:37 Respiratory Rate 20 12/09/17 11:37 Blood Pressure 110/72 12/09/17 11:37 O2 Sat by Pulse Oximetry (%) 92 L 12/09/17 05:15 Constitutional: Yes: Calm Eyes: Yes: Conjunctiva Clear HENT: Yes: Atraumatic Neck: Yes: Supple Cardiovascular: Yes: S1, S2 Respiratory: Yes: On Venti-Mask Gastrointestinal: Yes: Soft Genitourinary: Yes: WNL Musculoskeletal: Yes: WNL Edema: No Neurological: Yes: Oriented Psychiatric: Yes: Oriented Labs: CBC, BMP 12/09/17 06:30 12/09/17 06:30 INR, PTT INR 1.32 (0.82-1.09) H 12/08/17 13:11 Problem List - Problems (1) Anemia Code(s): D64.9 - ANEMIA, UNSPECIFIED Qualifiers: Anemia type: due to chronic kidney disease Chronic kidney disease stage: on chronic dialysis Qualified Code(s): N18.6 - End stage renal disease; D63.1 - Anemia in chronic kidney disease; D63.1 - Anemia in chronic kidney disease; Z99.2 - Dependence on renal dialysis; Z99.2 - Dependence on renal dialysis; Z99.2 - Dependence on renal dialysis; Z99.2 - Dependence on renal dialysis (2) BPH (benign prostatic hyperplasia) Code(s): N40.0 - BENIGN PROSTATIC HYPERPLASIA WITHOUT LOWER URINRY TRACT SYMP Qualifiers: Lower urinary tract symptom presence: symptoms present Lower urinary tract symptom detail: urinary frequency Qualified Code(s): N40.1 - Benign prostatic hyperplasia with lower urinary tract symptoms; R35.0 - Frequency of micturition ; R35.0 - Frequency of micturition (3) CHF (congestive heart failure) Code(s): I50.9 - HEART FAILURE, UNSPECIFIED Assessment/Plan Current Medications Generic Name Dose Route Start Last Admin Trade Name Freq PRN Reason Stop Dose Admin Albuterol Sulfate 1 amp 12/08/17 17:20 12/09/17 09:47 Ventolin 0.083% Nebulizer Soln - NEB 1 amp Q4H PRN Administration SHORT OF BREATH/WHEEZING Aspirin 81 mg 12/09/17 10:00 12/09/17 11:30 Ecotrin - PO 81 mg DAILY [facility] Administration Budesonide/Formoterol Fumarate 2 puff 12/08/17 22:00 12/09/17 11:31 Symbicort 80/4.5mcg - IH 2 puff BID [facility] Administration Carvedilol 3.125 mg 12/08/17 22:00 12/09/17 11:30 Coreg - PO 3.125 mg BID [facility] Administration Furosemide 40 mg 12/09/17 10:00 12/09/17 11:30 Lasix - PO 40 mg DAILY [facility] Administration Heparin Sodium (Porcine) 5,000 unit 12/08/17 22:00 12/09/17 14:22 Heparin - SQ 5,000 unit TID [facility] Administration Sodium Chloride 250 mls @ 3,000 mls/hr 12/08/17 16:13 Normal Saline - IV 12/09/17 16:13 PRN PRN Hypotension during Dialysis Losartan Potassium 50 mg 12/09/17 10:00 12/09/17 11:30 Cozaar - PO 50 mg DAILY [facility] Administration Methylprednisolone Sodium Succinate 40 mg 12/08/17 21:00 12/09/17 14:22 Solu-Medrol - IVPUSH 40 mg Q6H-IV [facility] Administration Rosuvastatin Calcium 20 mg 12/08/17 22:00 12/08/17 21:55 Crestor - PO 20 mg HS [facility] Administration Sevelamer Carbonate 1,600 mg 12/08/17 17:30 12/09/17 11:35 Renvela - PO 1,600 mg TIDCM [facility] Administration Tamsulosin HCl 0.4 mg 12/09/17 08:30 12/09/17 08:12 Flomax - PO 0.4 mg DAILY@0830 [facility] Administration Tiotropium [place] 1 puff 12/09/17 10:00 12/09/17 11:31 Spiriva - IH 1 puff DAILY [facility] Administration Impression 1. ESRD 2. CHF 3. anemia 4. HTN 5. hyperlipidemia 6. hypoxia 7. pulm hypertension 8. CAD Plan - HD in am - pt being transferred to [facility] for pulm HTN specialist - cont oxygen - monitor pulse ox
[2017-12-09] MEDS ORDERED: SODIUM CHLORIDE 250 ML IV PRN (14:34)
[2017-12-09] MEDS: ROSUVASTATIN CA 20 MG TABLET (FP) PO SCH (21:05)
[2017-12-10] MEDS: methylPREDNISolone NA SUCC 40 MG/1 ML VIAL IVPUSH SCH ×4 (02:29→20:43)
[2017-12-10] MEDS: HEPARIN NA (PORCINE) 5,000 UNITS/ML 1ML VIAL SQ SCH ×3 (06:08→22:49)
[2017-12-10 07:09] LABS: BASO % 0.1 % (0-2.0); HEMATOCRIT 33.8 % (35.4-49); HEMOGLOBIN 11.5 GM/dL (11.7-16.9); LYMPH % 6.2 % (8-40); MCH 36.4 pg (25.7-33.7); MCHC 33.9 g/dl (32.0-35.9); MEAN CELL VOLUME 107.1 fl (80-96); MEAN PLT VOLUME 9.5 fl (7.5-11.1); MONO % 4.1 % (3.8-10.2); NEUT % 89.6 % (42.8-82.8); PLATELET COUNT 138 K/MM3 (134-434); RBC 3.15 M/mm3 (4.00-5.60); WHITE BLOOD COUNT 7.9 K/mm3 (4.0-10.0)
[2017-12-10 07:29] LABS: CALCIUM 8.4 mg/dL (8.5-10.1); CHLORIDE 99 mmol/L (98-107); POTASSIUM 4.8 mmol/L (3.5-5.1); SODIUM 139 mmol/L (136-145)
[2017-12-10 07:33] LABS: ANION GAP 15 (8-16); BLOOD UREA NITROGEN 71 mg/dL (7-18); CO2 25 mmol/L (21-32); CREATININE 6.7 mg/dL (0.7-1.3); GLUCOSE,RANDOM 215 mg/dL (74-106); MAGNESIUM 2.8 mg/dL (1.8-2.4); PHOSPHOROUS 6.6 mg/dL (2.5-4.9)
[2017-12-10 07:40] LABS: ADD RBC MORPHOLOGY YES
[2017-12-10] MEDS: SEVELAMER CARBONATE 800 MG TAB (FP) PO SCH ×3 (08:27→17:35)
[2017-12-10] MEDS: TAMSULOSIN HCL 0.4 MG CAP.ER.24H (FP) PO SCH (08:28)
--- NOTE | 2017-12-10 08:54 | PN ---
Progress Note, Physician Chief Complaint: CT w/ ? worsened LAD and pericardial effusion - Current Medication List Current Medications: Active Medications Albuterol Sulfate (Ventolin 0.083% Nebulizer Soln -) 1 amp NEB Q4H PRN PRN Reason: SHORT OF BREATH/WHEEZING Last Admin: 12/09/17 09:47 Dose: 1 amp Aspirin (Ecotrin -) 81 mg PO DAILY [facility] Last Admin: 12/09/17 11:30 Dose: 81 mg Budesonide/Formoterol Fumarate (Symbicort 80/4.5mcg -) 2 puff IH BID [facility] Last Admin: 12/09/17 21:05 Dose: 2 puff Carvedilol (Coreg -) 3.125 mg PO BID [facility] Last Admin: 12/09/17 21:05 Dose: 3.125 mg Furosemide (Lasix -) 40 mg PO DAILY [facility] Last Admin: 12/09/17 11:30 Dose: 40 mg Heparin Sodium (Porcine) (Heparin -) 5,000 unit SQ TID [facility] Last Admin: 12/10/17 06:08 Dose: 5,000 unit Sodium Chloride (Normal Saline -) 250 mls @ 3,000 mls/hr IV PRN PRN PRN Reason: Hypotension during Dialysis Stop: 12/10/17 14:34 Losartan Potassium (Cozaar -) 50 mg PO DAILY [facility] Last Admin: 12/09/17 11:30 Dose: 50 mg Methylprednisolone Sodium Succinate (Solu-Medrol -) 40 mg IVPUSH Q6H-IV [facility] Last Admin: 12/10/17 08:34 Dose: 40 mg Rosuvastatin Calcium (Crestor -) 20 mg PO HS [facility] Last Admin: 12/09/17 21:05 Dose: 20 mg Sevelamer Carbonate (Renvela -) 1,600 mg PO TIDCM [facility] Last Admin: 12/10/17 08:27 Dose: 1,600 mg Tamsulosin HCl (Flomax -) 0.4 mg PO DAILY@0830 [facility] Last Admin: 12/10/17 08:28 Dose: 0.4 mg Tiotropium [place] (Spiriva -) 1 puff IH DAILY [facility] Last Admin: 12/09/17 11:31 Dose: 1 puff - Objective Vital Signs: Vital Signs Temperature 97.5 F L 12/10/17 06:00 Pulse Rate 94 H 12/10/17 06:00 Respiratory Rate 20 05/16/18 06:00 Blood Pressure 107/71 12/10/17 06:00 O2 Sat by Pulse Oximetry (%) 92 L 12/09/17 23:00 Constitutional: Yes: Calm Cardiovascular: Yes: Regular Rate and Rhythm Respiratory: Yes: Rhonchi Gastrointestinal: Yes: Soft Edema: No Neurological: Yes: Alert, Oriented Labs: CBC, BMP 12/10/17 06:50 12/10/17 06:50 INR, PTT INR 1.32 (0.82-1.09) H 12/08/17 13:11 Assessment/Plan IMP: Moderate to severe PHTN Chronic hypoxemia ?ILD ESRD Pericardial effusion REC: 1. Supplimental O2 2. HD 3. Further work up PHTN as per Pulmonary 4. Echo to better assess pericardial effusion: may need pericardiocentesis, especially if helpful for diagnostic purposes. 5. Hold Losartan
[2017-12-10] MEDS: FUROSEMIDE 40 MG TABLET (FP) PO SCH (09:30)
[2017-12-10 11:24] LABS: ANISOCYTOSIS 1+; MACROCYTOSIS 2+; PLATELET ESTIMATE ADEQUATE
[2017-12-10] MEDS ORDERED: FUROSEMIDE 40 MG TABLET (FP) PO SCH (11:48)
--- NOTE | 2017-12-10 12:09 | PN ---
Progress Note, Physician History of Present Illness: pulmonary alert,no distress on HD,still c/o sob with any exertion - Current Medication List Current Medications: Active Medications Albuterol Sulfate (Ventolin 0.083% Nebulizer Soln -) 1 amp NEB Q4H PRN PRN Reason: SHORT OF BREATH/WHEEZING Last Admin: 12/09/17 09:47 Dose: 1 amp Aspirin (Ecotrin -) 81 mg PO DAILY [facility] Last Admin: 12/09/17 11:30 Dose: 81 mg Budesonide/Formoterol Fumarate (Symbicort 80/4.5mcg -) 2 puff IH BID [facility] Last Admin: 12/09/17 21:05 Dose: 2 puff Carvedilol (Coreg -) 3.125 mg PO BID [facility] Furosemide (Lasix -) 40 mg PO DAILY [facility] Heparin Sodium (Porcine) (Heparin -) 5,000 unit SQ TID [facility] Last Admin: 12/10/17 06:08 Dose: 5,000 unit Sodium Chloride (Normal Saline -) 250 mls @ 3,000 mls/hr IV PRN PRN PRN Reason: Hypotension during Dialysis Stop: 12/10/17 14:34 Methylprednisolone Sodium Succinate (Solu-Medrol -) 40 mg IVPUSH Q6H-IV [facility] Last Admin: 12/10/17 08:34 Dose: 40 mg Rosuvastatin Calcium (Crestor -) 20 mg PO HS [facility] Last Admin: 12/09/17 21:05 Dose: 20 mg Sevelamer Carbonate (Renvela -) 1,600 mg PO TIDCM [facility] Last Admin: 12/10/17 08:27 Dose: 1,600 mg Tamsulosin HCl (Flomax -) 0.4 mg PO DAILY@0830 [facility] Last Admin: 12/10/17 08:28 Dose: 0.4 mg Tiotropium [place] (Spiriva -) 1 puff IH DAILY [facility] Last Admin: 12/09/17 11:31 Dose: 1 puff - Objective Vital Signs: Vital Signs Temperature 97.9 F 12/10/17 10:25 Pulse Rate 83 12/10/17 11:30 Respiratory Rate 18 12/10/17 11:30 Blood Pressure 104/73 12/10/17 11:30 O2 Sat by Pulse Oximetry (%) 92 L 12/09/17 23:00 Constitutional: Yes: Well Nourished, Calm Eyes: Yes: WNL HENT: Yes: WNL Neck: Yes: WNL Cardiovascular: Yes: Regular Rate and Rhythm, S1, S2 Respiratory: Yes: Diminished Gastrointestinal: Yes: Normal Bowel Sounds, Soft Extremities: Yes: WNL Edema: No Labs: CBC, BMP 12/10/17 06:50 12/10/17 06:50 INR, PTT INR 1.32 (0.82-1.09) H 12/08/17 13:11 Problem List - Problems (1) Acute and chronic respiratory failure with hypoxia Code(s): J96.21 - ACUTE AND CHRONIC RESPIRATORY FAILURE WITH HYPOXIA (2) CHF (congestive heart failure) Code(s): I50.9 - HEART FAILURE, UNSPECIFIED (3) CKD (chronic kidney disease) stage 5, GFR less than 15 ml/min Code(s): N18.5 - CHRONIC KIDNEY DISEASE, STAGE 5 (4) COPD (chronic obstructive pulmonary disease) Code(s): J44.9 - CHRONIC OBSTRUCTIVE PULMONARY DISEASE, UNSPECIFIED Qualifiers: COPD type: COPD with acute exacerbation Qualified Code(s): J44.1 - Chronic obstructive pulmonary disease with (acute) exacerbation (5) Dyspnea, unspecified Code(s): R06.00 - DYSPNEA, UNSPECIFIED Qualifiers: Dyspnea type: dyspnea on exertion Qualified Code(s): R06.09 - Other forms of dyspnea (6) ESRD (end stage renal disease) Code(s): N18.6 - END STAGE RENAL DISEASE (7) Emphysema lung Code(s): J43.9 - EMPHYSEMA, UNSPECIFIED (8) GERD (gastroesophageal reflux disease) Code(s): K21.9 - GASTRO-ESOPHAGEAL REFLUX DISEASE WITHOUT ESOPHAGITIS (9) HLD (hyperlipidemia) Code(s): E78.5 - HYPERLIPIDEMIA, UNSPECIFIED Qualifiers: Hyperlipidemia type: pure hypercholesterolemia Qualified Code(s): E78.00 - Pure hypercholesterolemia, unspecified; E78.0 - Pure hypercholesterolemia (10) Pulmonary HTN Code(s): I27.20 - PULMONARY HYPERTENSION, UNSPECIFIED Assessment/Plan IMP ACUTE ON CHRONIC HYPOXEMIC RESPIRATORY FAILURE LIKELY FLUID OVERLOAD COPD PULMONARY HTN PERICARDIAL EFFUSION ESRD ON HD GERD ? [facility] PL[facility] THORACIC SURGERY EVALUATION FOR PERICARDIAL EFFUSION HD PER RENAL O2 TO MAINTAIN SATURATION > 90% INHALED BRONCHODILATORS DAILY WT DR JENKINS Problem List - Problems (1) Acute and chronic respiratory failure with hypoxia Code(s): J96.21 - ACUTE AND CHRONIC RESPIRATORY FAILURE WITH HYPOXIA (2) CHF (congestive heart failure) Code(s): I50.9 - HEART FAILURE, UNSPECIFIED (3) CKD (chronic kidney disease) stage 5, GFR less than 15 ml/min Code(s): N18.5 - CHRONIC KIDNEY DISEASE, STAGE 5 (4) COPD (chronic obstructive pulmonary disease) Code(s): J44.9 - CHRONIC OBSTRUCTIVE PULMONARY DISEASE, UNSPECIFIED Qualifiers: COPD type: COPD with acute exacerbation Qualified Code(s): J44.1 - Chronic obstructive pulmonary disease with (acute) exacerbation (5) Dyspnea, unspecified Code(s): R06.00 - DYSPNEA, UNSPECIFIED Qualifiers: Dyspnea type: dyspnea on exertion Qualified Code(s): R06.09 - Other forms of dyspnea (6) ESRD (end stage renal disease) Code(s): N18.6 - END STAGE RENAL DISEASE (7) Emphysema lung Code(s): J43.9 - EMPHYSEMA, UNSPECIFIED (8) GERD (gastroesophageal reflux disease) Code(s): K21.9 - GASTRO-ESOPHAGEAL REFLUX DISEASE WITHOUT ESOPHAGITIS (9) HLD (hyperlipidemia) Code(s): E78.5 - HYPERLIPIDEMIA, UNSPECIFIED Qualifiers: Hyperlipidemia type: pure hypercholesterolemia Qualified Code(s): E78.00 - Pure hypercholesterolemia, unspecified; E78.0 - Pure hypercholesterolemia (10) Pulmonary HTN Code(s): I27.20 - PULMONARY HYPERTENSION, UNSPECIFIED
--- NOTE | 2017-12-10 12:09 | PN ---
Progress Note, Physician Chief Complaint: Mr Krishnamurthy says everything is the same. He still complains of shortness of breath. Denies cp or n/v. - Current Medication List Current Medications: Active Medications Albuterol Sulfate (Ventolin 0.083% Nebulizer Soln -) 1 amp NEB Q4H PRN PRN Reason: SHORT OF BREATH/WHEEZING Last Admin: 12/09/17 09:47 Dose: 1 amp Aspirin (Ecotrin -) 81 mg PO DAILY [facility] Last Admin: 12/09/17 11:30 Dose: 81 mg Budesonide/Formoterol Fumarate (Symbicort 80/4.5mcg -) 2 puff IH BID [facility] Last Admin: 12/09/17 21:05 Dose: 2 puff Carvedilol (Coreg -) 3.125 mg PO BID [facility] Furosemide (Lasix -) 40 mg PO DAILY [facility] Heparin Sodium (Porcine) (Heparin -) 5,000 unit SQ TID [facility] Last Admin: 12/10/17 06:08 Dose: 5,000 unit Sodium Chloride (Normal Saline -) 250 mls @ 3,000 mls/hr IV PRN PRN PRN Reason: Hypotension during Dialysis Stop: 12/10/17 14:34 Methylprednisolone Sodium Succinate (Solu-Medrol -) 40 mg IVPUSH Q6H-IV [facility] Last Admin: 12/10/17 08:34 Dose: 40 mg Rosuvastatin Calcium (Crestor -) 20 mg PO HS [facility] Last Admin: 12/09/17 21:05 Dose: 20 mg Sevelamer Carbonate (Renvela -) 1,600 mg PO TIDCM [facility] Last Admin: 12/10/17 08:27 Dose: 1,600 mg Tamsulosin HCl (Flomax -) 0.4 mg PO DAILY@0830 [facility] Last Admin: 12/10/17 08:28 Dose: 0.4 mg Tiotropium [place] (Spiriva -) 1 puff IH DAILY [facility] Last Admin: 12/09/17 11:31 Dose: 1 puff - Objective Vital Signs: Vital Signs Temperature 36.6 C 12/10/17 10:25 Pulse Rate 83 12/10/17 11:30 Respiratory Rate 18 12/10/17 11:30 Blood Pressure 104/73 12/10/17 11:30 O2 Sat by Pulse Oximetry (%) 92 L 12/09/17 23:00 Constitutional: Yes: Well Nourished, No Distress, Calm Cardiovascular: Yes: Tachycardia. No: Pulse Irregular, Gallop, Murmur, Rub Respiratory: Yes: Regular, CTA Bilaterally. No: Rales, Rhonchi, Wheezes Gastrointestinal: Yes: Normal Bowel Sounds, Soft. No: Distention, Tenderness Extremities: Yes: WNL Edema: No Labs: CBC, BMP 12/10/17 06:50 12/10/17 06:50 INR, PTT INR 1.32 (0.82-1.09) H 12/08/17 13:11 Problem List - Problems (1) Acute and chronic respiratory failure with hypoxia Code(s): J96.21 - ACUTE AND CHRONIC RESPIRATORY FAILURE WITH HYPOXIA (2) COPD (chronic obstructive pulmonary disease) Code(s): J44.9 - CHRONIC OBSTRUCTIVE PULMONARY DISEASE, UNSPECIFIED Qualifiers: COPD type: COPD with acute exacerbation Qualified Code(s): J44.1 - Chronic obstructive pulmonary disease with (acute) exacerbation (3) ESRD (end stage renal disease) Code(s): N18.6 - END STAGE RENAL DISEASE (4) CHF (congestive heart failure) Code(s): I50.9 - HEART FAILURE, UNSPECIFIED (5) HLD (hyperlipidemia) Code(s): E78.5 - HYPERLIPIDEMIA, UNSPECIFIED Qualifiers: Hyperlipidemia type: pure hypercholesterolemia Qualified Code(s): E78.00 - Pure hypercholesterolemia, unspecified; E78.0 - Pure hypercholesterolemia (6) HTN (hypertension) Code(s): I10 - ESSENTIAL (PRIMARY) HYPERTENSION Qualifiers: Hypertension type: essential hypertension Qualified Code(s): I10 - Essential (primary) hypertension (7) Hyperparathyroidism due to ESRD on dialysis Code(s): E21.3 - HYPERPARATHYROIDISM, UNSPECIFIED; N18.6 - END STAGE RENAL DISEASE; Z99.2 - DEPENDENCE ON RENAL DIALYSIS (8) Pulmonary HTN Code(s): I27.20 - PULMONARY HYPERTENSION, UNSPECIFIED Assessment/Plan (1) Acute and chronic respiratory failure with hypoxia Assessment/Plan: -pulmonary HTN vs pericardial effusion -suspect both are contributing -case d/w cardiology -transfer to telemetry and consult cardiothoracic surgery -continue oxygen support Code(s): J96.21 - ACUTE AND CHRONIC RESPIRATORY FAILURE WITH HYPOXIA (2) COPD (chronic obstructive pulmonary disease) Assessment/Plan: -case d/w pulmonary -continue current management Code(s): J44.9 - CHRONIC OBSTRUCTIVE PULMONARY DISEASE, UNSPECIFIED Qualifiers: COPD type: COPD with acute exacerbation Qualified Code(s): J44.1 - Chronic obstructive pulmonary disease with (acute) exacerbation (3) ESRD (end stage renal disease) Assessment/Plan: -case d/w Dr Mackenzie -dialyzed today Code(s): N18.6 - END STAGE RENAL DISEASE (4) CHF (congestive heart failure) Assessment/Plan: -appreciate cardiology assistance -continue HD and lasix Code(s): I50.9 - HEART FAILURE, UNSPECIFIED (5) HLD (hyperlipidemia) Assessment/Plan: -continue crestor Code(s): E78.5 - HYPERLIPIDEMIA, UNSPECIFIED Qualifiers: Hyperlipidemia type: pure hypercholesterolemia Qualified Code(s): E78.00 - Pure hypercholesterolemia, unspecified; E78.0 - Pure hypercholesterolemia (6) HTN (hypertension) Assessment/Plan: -continue lasix, losartan, and coreg -controlled Code(s): I10 - ESSENTIAL (PRIMARY) HYPERTENSION Qualifiers: Hypertension type: essential hypertension Qualified Code(s): I10 - Essential (primary) hypertension (7) Hyperparathyroidism due to ESRD on dialysis Assessment/Plan: -continue renvela Code(s): E21.3 - HYPERPARATHYROIDISM, UNSPECIFIED; N18.6 - END STAGE RENAL DISEASE; Z99.2 - DEPENDENCE ON RENAL DIALYSIS (8) Pulmonary HTN Assessment/Plan: -patient accepted in transfer to [place] -awaiting bed Code(s): I27.20 - PULMONARY HYPERTENSION, UNSPECIFIED (9) Pericardial effusion -noted on CT scan of the chest, confirmed by ECHO -case d/w cardiology, enlarging -CT surgery consulted to evaluate before transfer -awaiting CTS recommendations Dispo -patient accepted to [place], however found to have a pericardial effusion that is enlarging -will address before transfer since do not know when bed is available
[2017-12-10] MEDS: CARVEDILOL 3.125 MG TABLET (FP) PO SCH ×2 (12:33→22:49)
[2017-12-10] MEDS: BUDESONIDE/FORMETEROL FUMARATE 80/4.5 mcg INHALER IH SCH ×2 (12:36→22:48)
[2017-12-10] MEDS: TIOTROPIUM BROMIDE 18 MCG CAPSULES IH SCH (12:37)
--- NOTE | 2017-12-10 13:23 | PN ---
Progress Note, Physician History of Present Illness: Pt seen and examined at bedside. He is awake and alert. He denies chest pain. He was found to have a pericardial effusion. - Current Medication List Current Medications: Active Medications Albuterol Sulfate (Ventolin 0.083% Nebulizer Soln -) 1 amp NEB Q4H PRN PRN Reason: SHORT OF BREATH/WHEEZING Last Admin: 12/09/17 09:47 Dose: 1 amp Aspirin (Ecotrin -) 81 mg PO DAILY [facility] Last Admin: 12/09/17 11:30 Dose: 81 mg Budesonide/Formoterol Fumarate (Symbicort 80/4.5mcg -) 2 puff IH BID [facility] Last Admin: 12/10/17 12:36 Dose: 2 puff Carvedilol (Coreg -) 3.125 mg PO BID [facility] Furosemide (Lasix -) 40 mg PO DAILY [facility] Heparin Sodium (Porcine) (Heparin -) 5,000 unit SQ TID [facility] Last Admin: 12/10/17 06:08 Dose: 5,000 unit Sodium Chloride (Normal Saline -) 250 mls @ 3,000 mls/hr IV PRN PRN PRN Reason: Hypotension during Dialysis Stop: 12/10/17 14:34 Methylprednisolone Sodium Succinate (Solu-Medrol -) 40 mg IVPUSH Q6H-IV [facility] Last Admin: 12/10/17 08:34 Dose: 40 mg Rosuvastatin Calcium (Crestor -) 20 mg PO HS [facility] Last Admin: 12/09/17 21:05 Dose: 20 mg Sevelamer Carbonate (Renvela -) 1,600 mg PO TIDCM [facility] Last Admin: 12/10/17 08:27 Dose: 1,600 mg Tamsulosin HCl (Flomax -) 0.4 mg PO DAILY@0830 [facility] Last Admin: 12/10/17 08:28 Dose: 0.4 mg Tiotropium [place] (Spiriva -) 1 puff IH DAILY [facility] Last Admin: 12/10/17 12:37 Dose: 1 puff - Objective Vital Signs: Vital Signs Temperature 97.9 F 12/10/17 10:25 Pulse Rate 84 12/10/17 13:00 Respiratory Rate 18 12/10/17 13:00 Blood Pressure 114/73 12/10/17 13:00 O2 Sat by Pulse Oximetry (%) 92 L 12/09/17 23:00 Constitutional: Yes: Calm Eyes: Yes: Conjunctiva Clear HENT: Yes: Atraumatic Cardiovascular: Yes: S1, S2 Respiratory: Yes: CTA Bilaterally, On Nasal O2 Gastrointestinal: Yes: Soft Genitourinary: Yes: WNL Musculoskeletal: Yes: WNL Edema: No Integumentary: Yes: WNL Neurological: Yes: Oriented Psychiatric: Yes: Oriented Labs: CBC, BMP 12/10/17 06:50 12/10/17 06:50 INR, PTT INR 1.32 (0.82-1.09) H 12/08/17 13:11 Problem List - Problems (1) Anemia Code(s): D64.9 - ANEMIA, UNSPECIFIED Qualifiers: Anemia type: due to chronic kidney disease Chronic kidney disease stage: on chronic dialysis Qualified Code(s): N18.6 - End stage renal disease; D63.1 - Anemia in chronic kidney disease; D63.1 - Anemia in chronic kidney disease; Z99.2 - Dependence on renal dialysis; Z99.2 - Dependence on renal dialysis; Z99.2 - Dependence on renal dialysis; Z99.2 - Dependence on renal dialysis (2) BPH (benign prostatic hyperplasia) Code(s): N40.0 - BENIGN PROSTATIC HYPERPLASIA WITHOUT LOWER URINRY TRACT SYMP Qualifiers: Lower urinary tract symptom presence: symptoms present Lower urinary tract symptom detail: urinary frequency Qualified Code(s): N40.1 - Benign prostatic hyperplasia with lower urinary tract symptoms; R35.0 - Frequency of micturition ; R35.0 - Frequency of micturition (3) CHF (congestive heart failure) Code(s): I50.9 - HEART FAILURE, UNSPECIFIED Assessment/Plan Current Medications Generic Name Dose Route Start Last Admin Trade Name Freq PRN Reason Stop Dose Admin Albuterol Sulfate 1 amp 12/08/17 17:20 12/09/17 09:47 Ventolin 0.083% Nebulizer Soln - NEB 1 amp Q4H PRN Administration SHORT OF BREATH/WHEEZING Aspirin 81 mg 12/09/17 10:00 12/09/17 11:30 Ecotrin - PO 81 mg DAILY [facility] Administration Budesonide/Formoterol Fumarate 2 puff 12/08/17 22:00 12/09/17 11:31 Symbicort 80/4.5mcg - IH 2 puff BID [facility] Administration Carvedilol 3.125 mg 12/08/17 22:00 12/09/17 11:30 Coreg - PO 3.125 mg BID [facility] Administration Furosemide 40 mg 12/09/17 10:00 12/09/17 11:30 Lasix - PO 40 mg DAILY [facility] Administration Heparin Sodium (Porcine) 5,000 unit 12/08/17 22:00 12/09/17 14:22 Heparin - SQ 5,000 unit TID [facility] Administration Sodium Chloride 250 mls @ 3,000 mls/hr 12/08/17 16:13 Normal Saline - IV 12/09/17 16:13 PRN PRN Hypotension during Dialysis Losartan Potassium 50 mg 12/09/17 10:00 12/09/17 11:30 Cozaar - PO 50 mg DAILY [facility] Administration Methylprednisolone Sodium Succinate 40 mg 12/08/17 21:00 12/09/17 14:22 Solu-Medrol - IVPUSH 40 mg Q6H-IV [facility] Administration Rosuvastatin Calcium 20 mg 12/08/17 22:00 12/08/17 21:55 Crestor - PO 20 mg HS [facility] Administration Sevelamer Carbonate 1,600 mg 12/08/17 17:30 12/09/17 11:35 Renvela - PO 1,600 mg TIDCM [facility] Administration Tamsulosin HCl 0.4 mg 12/09/17 08:30 12/09/17 08:12 Flomax - PO 0.4 mg DAILY@0830 [facility] Administration Tiotropium [place] 1 puff 12/09/17 10:00 12/09/17 11:31 Spiriva - IH 1 puff DAILY [facility] Administration Impression 1. ESRD 2. CHF 3. anemia 4. HTN 5. hyperlipidemia 6. hypoxia 7. pulm hypertension 8. CAD 9. pericardial effusion Plan - pt is tolerating HD - discussed with cardiology, pt is being moved to [facility] and CTS will evaluate pt - cont oxygen and monitor pulse ox - pt is still also pending transfer to [place] - discussed with medical team - monitor BP
[2017-12-10] MEDS: ASPIRIN COATED 81 MG TABLET.EC PO SCH (14:13)
[2017-12-10] MEDS ORDERED: ALBUTEROL SO4 0.083% IH SOL 2.5 MG/3 ML VIAL.NEB. NEB PRN (15:49)
[2017-12-10] MEDS ORDERED: SODIUM CHLORIDE 250 ML IV PRN (15:49)
--- NOTE | 2017-12-10 16:14 | CONSULT ---
Consult Consult Specialty:: Thoracic Surgery Referred by:: Dr. Hopkins Reason for Consultation:: Mediastinal adenopathy and pericardial effusion - History of Present Illness Chief Complaint: SOB x 2 days but also occurring since 05/2017 History of Present Illness: 67M with ESRD on HD, CHF, ILD, former smoker (>40 pack years) pulmonary HTN, p/ w SOB x 6 months, worse over last 2 days leading to admission on Friday. Of note , also has 15lb weight loss over last year. Denies hemoptysis. Of note has increased pericardial effusion since May,. Echo shows severe pulmonary hypertension. Echo done today prior to HD in which 2.5KG removed and his pressure tolerated well. 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 with agents including mycophenolate, Cytoxan , tacrolimus, prednisone, intravenous rituximab and Acthar Gel) ), Hemodialysis Endocrine: Yes: Hyperparathyroidism, Other (Multinodular goiter) - Past Surgical History Past Surgical History: Yes: AV Fistula/Graft (left arm) - Alcohol/Substance Use Hx Alcohol Use: No History of Substance Use: reports: None - Smoking History Smoking history: Former smoker Have you smoked in the past 12 months: No If you are a former smoker, when did you quit?: 10 years ago - Social History Usual Living Arrangement: With Spouse ADL: Independent History of Recent Travel: No Home Medications - Allergies Allergies/Adverse Reactions: Allergies Allergy/AdvReac Type Severity Reaction Status Date / Time No Known Allergies Allergy Verified 11/10/17 14:48 - Home Medications Home Medications: Ambulatory Orders Alfuzosin HCl [Uroxatral] 10 mg PO DAILY 12/08/17 Aspirin [Aspirin EC] 81 mg PO DAILY 12/08/17 Carvedilol [Coreg -] 3.125 mg PO BID 12/08/17 Furosemide [Lasix] 40 mg PO DAILY 12/08/17 Losartan Potassium [Cozaar] 50 mg PO DAILY 12/08/17 Rosuvastatin [Crestor -] 20 mg PO HS 12/08/17 Sevelamer Carbonate [Renvela] 1,600 mg PO TID 12/08/17 Review of Systems - Review of Systems Constitutional: reports: Malaise, Unintentional Wgt. Loss Eyes: reports: No Symptoms HENT: reports: No Symptoms Neck: reports: No Symptoms Cardiovascular: reports: No Symptoms Respiratory: reports: SOB, SOB on Exertion Gastrointestinal: reports: No Symptoms Genitourinary: reports: No Symptoms Musculoskeletal: reports: Muscle Weakness Physical Exam Vital Signs: Vital Signs Temperature 98.5 F 12/10/17 15:50 Pulse Rate 103 H 12/10/17 15:50 Respiratory Rate 20 12/10/17 15:50 Blood Pressure 114/76 12/10/17 15:50 O2 Sat by Pulse Oximetry (%) 93 L 12/10/17 15:51 Constitutional: Yes: Calm. No: Pallor Eyes: Yes: WNL HENT: Yes: WNL Neck: Yes: Supple Cardiovascular: Yes: Regular Rate and Rhythm Respiratory: Yes: Regular Gastrointestinal: Yes: WNL Edema: No Labs: CBC, BMP 12/10/17 06:50 12/10/17 06:50 Imaging - Results Cat Scan: Image Reviewed (CT with moderate to large effusion, slightly increased since May, and prominent mediastinal adenopathy as well as evidence of ILD and COPD) Problem List - Problems (1) Acute and chronic respiratory failure with hypoxia Code(s): J96.21 - ACUTE AND CHRONIC RESPIRATORY FAILURE WITH HYPOXIA (2) CHF (congestive heart failure) Code(s): I50.9 - HEART FAILURE, UNSPECIFIED (3) COPD (chronic obstructive pulmonary disease) Code(s): J44.9 - CHRONIC OBSTRUCTIVE PULMONARY DISEASE, UNSPECIFIED Qualifiers: COPD type: COPD with acute exacerbation Qualified Code(s): J44.1 - Chronic obstructive pulmonary disease with (acute) exacerbation (4) ESRD (end stage renal disease) Code(s): N18.6 - END STAGE RENAL DISEASE (5) HLD (hyperlipidemia) Code(s): E78.5 - HYPERLIPIDEMIA, UNSPECIFIED Qualifiers: Hyperlipidemia type: pure hypercholesterolemia Qualified Code(s): E78.00 - Pure hypercholesterolemia, unspecified; E78.0 - Pure hypercholesterolemia (6) Hyperparathyroidism Code(s): E21.3 - HYPERPARATHYROIDISM, UNSPECIFIED Assessment/Plan 67M with MMP most notably pulmonary HTN and COPD with progressively worsening respiratory failure requiring home oxygen. He also has an enlarging pericardial effusion and prominent symmetric mediastinal adenopathy. I agree with transfer to tertiary center. Ultimately, I recommend the followin. Respiratory failure: Interventional cardiology consider drainage of effusion for dx and right heart cath to assess response to vasodilators? 2. Mediastinal adenopathy: Consider EBUS with transbronchial biopsy as well. 3. Would let IR know if awaiting transfer to consider pericardiocentesis tomorrow for sampling but I don't think this will clinically change course as he tolerated removal of 2.5KG of fluid on HD today with normal pressure.
[2017-12-10] MEDS ORDERED: PT OWN MED DRAWER 7, Y5N ONE ×3 (17:33→23:00)
[2017-12-10] MEDS ORDERED: ROSUVASTATIN CA 20 MG TABLET (FP) PO SCH (22:00)
[2017-12-11] MEDS: methylPREDNISolone NA SUCC 40 MG/1 ML VIAL IVPUSH SCH ×3 (02:26→14:24)
[2017-12-11] MEDS: HEPARIN NA (PORCINE) 5,000 UNITS/ML 1ML VIAL SQ SCH ×2 (06:15→14:24)
[2017-12-11 06:29] LABS: BASO % 0.1 % (0-2.0); HEMATOCRIT 36.2 % (35.4-49); HEMOGLOBIN 12.1 GM/dL (11.7-16.9); LYMPH % 5.7 % (8-40); MCH 36.1 pg (25.7-33.7); MCHC 33.5 g/dl (32.0-35.9); MEAN CELL VOLUME 107.6 fl (80-96); MEAN PLT VOLUME 10.2 fl (7.5-11.1); MONO % 4.9 % (3.8-10.2); NEUT % 89.3 % (42.8-82.8); PLATELET COUNT 145 K/MM3 (134-434); RBC 3.36 M/mm3 (4.00-5.60); RDW 15.2 % (11.9-15.9); WHITE BLOOD COUNT 7.9 K/mm3 (4.0-10.0)
[2017-12-11 06:54] LABS: ANION GAP 12 (8-16); BLOOD UREA NITROGEN 62 mg/dL (7-18); CALCIUM 7.8 mg/dL (8.5-10.1); CHLORIDE 100 mmol/L (98-107); CO2 27 mmol/L (21-32); GLUCOSE,RANDOM 230 mg/dL (74-106); MAGNESIUM 2.7 mg/dL (1.8-2.4); POTASSIUM 4.3 mmol/L (3.5-5.1); SODIUM 139 mmol/L (136-145)
[2017-12-11 06:55] LABS: CREATININE 5.2 mg/dL (0.7-1.3); PHOSPHOROUS 7.1 mg/dL (2.5-4.9)
[2017-12-11] MEDS ORDERED: TAMSULOSIN HCL 0.4 MG CAP.ER.24H (FP) PO SCH (08:30)
[2017-12-11] MEDS: SEVELAMER CARBONATE 800 MG TAB (FP) PO SCH ×3 (08:40→17:13)
--- NOTE | 2017-12-11 08:52 | PN ---
Progress Note, Physician Chief Complaint: comfortable, no distress History of Present Illness: TELE: NSR, mild sinus tach - Current Medication List Current Medications: Active Medications Albuterol Sulfate (Ventolin 0.083% Nebulizer Soln -) 1 amp NEB Q4H PRN PRN Reason: SHORT OF BREATH/WHEEZING Aspirin (Ecotrin -) 81 mg PO DAILY [facility] Budesonide/Formoterol Fumarate (Symbicort 80/4.5mcg -) 2 puff IH BID [facility] Last Admin: 12/10/17 22:48 Dose: 2 puff Carvedilol (Coreg -) 3.125 mg PO BID [facility] Last Admin: 12/10/17 22:49 Dose: 3.125 mg Furosemide (Lasix -) 40 mg PO DAILY [facility] Heparin Sodium (Porcine) (Heparin -) 5,000 unit SQ TID [facility] Last Admin: 12/11/17 06:15 Dose: 5,000 unit Sodium Chloride (Normal Saline -) 250 mls @ 3,000 mls/hr IV PRN PRN PRN Reason: Hypotension during Dialysis Methylprednisolone Sodium Succinate (Solu-Medrol -) 40 mg IVPUSH Q6H-IV [facility] Last Admin: 12/11/17 02:26 Dose: 40 mg Rosuvastatin Calcium (Crestor -) 20 mg PO HS [facility] Last Admin: 12/10/17 22:48 Dose: 20 mg Sevelamer Carbonate (Renvela -) 1,600 mg PO TIDCM [facility] Last Admin: 12/11/17 08:40 Dose: 1,600 mg Tamsulosin HCl (Flomax -) 0.4 mg PO DAILY@0830 [facility] Last Admin: 12/11/17 08:44 Dose: 0.4 mg Tiotropium [place] (Spiriva -) 1 puff IH DAILY [facility] - Objective Vital Signs: Vital Signs Temperature 98.0 F 12/11/17 06:00 Pulse Rate 94 H 12/11/17 06:00 Respiratory Rate 20 12/11/17 08:44 Blood Pressure 96/66 12/11/17 06:00 O2 Sat by Pulse Oximetry (%) 92 L 12/11/17 08:44 Constitutional: Yes: No Distress Cardiovascular: Yes: Regular Rate and Rhythm Respiratory: Yes: Rhonchi Gastrointestinal: Yes: Soft Edema: Yes Edema: LLE: 1+, RLE: 1+ Neurological: Yes: Alert, Oriented ...Motor Strength: WNL Labs: CBC, BMP 12/11/17 05:35 12/11/17 05:35 INR, PTT INR 1.32 (0.82-1.09) H 12/08/17 13:11 - ....Imaging Other: Pending (Echo reviewed) Assessment/Plan IMP: Moderate to severe PHTN Chronic hypoxemia ?ILD ESRD Pericardial effusion, worsening, now large REC: 1. Supplimental O2; continue tele 2. HD 3. Further work up PHTN as per Pulmonary 4. Clinically, not in tamponade. Tolerated full HD yesterday with no hemodynamic compromise D/C Losartan, D/C Lasix Awaits transfer to [facility]- evaluation for mediastinal LAD bx and pericardiocentesis for dx purposes Discussed with cardiology contact at [facility] this morning to try to expedite transfer
[2017-12-11] MEDS ORDERED: ASPIRIN COATED 81 MG TABLET.EC PO SCH (10:00)
[2017-12-11] MEDS ORDERED: TIOTROPIUM BROMIDE 18 MCG CAPSULES IH SCH (10:00)
[2017-12-11] MEDS: BUDESONIDE/FORMETEROL FUMARATE 80/4.5 mcg INHALER IH SCH (10:11)
[2017-12-11] MEDS: CARVEDILOL 3.125 MG TABLET (FP) PO SCH (10:11)
--- NOTE | 2017-12-11 11:31 | PN ---
Progress Note, Physician Chief Complaint: Mr Krishnamurthy says his shortness of breath is worsening. No cp or n/v. Can only do minimal exertion on venti mask before getting short of breath. - Current Medication List Current Medications: Active Medications Albuterol Sulfate (Ventolin 0.083% Nebulizer Soln -) 1 amp NEB Q4H PRN PRN Reason: SHORT OF BREATH/WHEEZING Aspirin (Ecotrin -) 81 mg PO DAILY [facility] Last Admin: 12/11/17 10:11 Dose: 81 mg Budesonide/Formoterol Fumarate (Symbicort 80/4.5mcg -) 2 puff IH BID [facility] Last Admin: 12/11/17 10:11 Dose: 2 puff Carvedilol (Coreg -) 3.125 mg PO BID [facility] Last Admin: 12/11/17 10:11 Dose: 3.125 mg Heparin Sodium (Porcine) (Heparin -) 5,000 unit SQ TID [facility] Last Admin: 12/11/17 06:15 Dose: 5,000 unit Sodium Chloride (Normal Saline -) 250 mls @ 3,000 mls/hr IV PRN PRN PRN Reason: Hypotension during Dialysis Methylprednisolone Sodium Succinate (Solu-Medrol -) 40 mg IVPUSH Q6H-IV [facility] Last Admin: 12/11/17 10:10 Dose: 40 mg Rosuvastatin Calcium (Crestor -) 20 mg PO HS [facility] Last Admin: 12/10/17 22:48 Dose: 20 mg Sevelamer Carbonate (Renvela -) 1,600 mg PO TIDCM [facility] Last Admin: 12/11/17 08:40 Dose: 1,600 mg Tamsulosin HCl (Flomax -) 0.4 mg PO DAILY@0830 [facility] Last Admin: 12/11/17 08:44 Dose: 0.4 mg Tiotropium [place] (Spiriva -) 1 puff IH DAILY [facility] Last Admin: 12/11/17 10:10 Dose: 1 puff - Objective Vital Signs: Vital Signs Temperature 36.9 C 12/11/17 10:00 Pulse Rate 98 H 12/11/17 10:00 Respiratory Rate 20 12/11/17 10:00 Blood Pressure 108/73 12/11/17 10:00 O2 Sat by Pulse Oximetry (%) 92 L 12/11/17 08:44 Constitutional: Yes: Well Nourished, No Distress, Calm Cardiovascular: Yes: Regular Rate and Rhythm. No: Gallop, Murmur, Rub Respiratory: Yes: Regular, CTA Bilaterally, On Venti-Mask. No: Rales, Rhonchi, Wheezes Gastrointestinal: Yes: Normal Bowel Sounds, Soft. No: Distention, Tenderness Extremities: Yes: WNL Edema: No Labs: CBC, BMP 12/11/17 05:35 12/11/17 05:35 INR, PTT INR 1.32 (0.82-1.09) H 12/08/17 13:11 Problem List - Problems (1) Acute and chronic respiratory failure with hypoxia Code(s): J96.21 - ACUTE AND CHRONIC RESPIRATORY FAILURE WITH HYPOXIA (2) COPD (chronic obstructive pulmonary disease) Code(s): J44.9 - CHRONIC OBSTRUCTIVE PULMONARY DISEASE, UNSPECIFIED Qualifiers: COPD type: COPD with acute exacerbation Qualified Code(s): J44.1 - Chronic obstructive pulmonary disease with (acute) exacerbation (3) ESRD (end stage renal disease) Code(s): N18.6 - END STAGE RENAL DISEASE (4) CHF (congestive heart failure) Code(s): I50.9 - HEART FAILURE, UNSPECIFIED (5) HLD (hyperlipidemia) Code(s): E78.5 - HYPERLIPIDEMIA, UNSPECIFIED Qualifiers: Hyperlipidemia type: pure hypercholesterolemia Qualified Code(s): E78.00 - Pure hypercholesterolemia, unspecified; E78.0 - Pure hypercholesterolemia (6) HTN (hypertension) Code(s): I10 - ESSENTIAL (PRIMARY) HYPERTENSION Qualifiers: Hypertension type: essential hypertension Qualified Code(s): I10 - Essential (primary) hypertension (7) Hyperparathyroidism due to ESRD on dialysis Code(s): E21.3 - HYPERPARATHYROIDISM, UNSPECIFIED; N18.6 - END STAGE RENAL DISEASE; Z99.2 - DEPENDENCE ON RENAL DIALYSIS (8) Pulmonary HTN Code(s): I27.20 - PULMONARY HYPERTENSION, UNSPECIFIED Assessment/Plan (1) Acute and chronic respiratory failure with hypoxia Assessment/Plan: -pulmonary HTN vs pericardial effusion -case d/w cardiology, cardiothoracic surgery, and nephrology -IR called and order placed for pericardiocentesis for fluid removal -continue oxygen support -awaiting transfer to [place] Code(s): J96.21 - ACUTE AND CHRONIC RESPIRATORY FAILURE WITH HYPOXIA (2) COPD (chronic obstructive pulmonary disease) Assessment/Plan: -case d/w pulmonary -continue current management Code(s): J44.9 - CHRONIC OBSTRUCTIVE PULMONARY DISEASE, UNSPECIFIED Qualifiers: COPD type: COPD with acute exacerbation Qualified Code(s): J44.1 - Chronic obstructive pulmonary disease with (acute) exacerbation (3) ESRD (end stage renal disease) Assessment/Plan: -case d/w Dr Mackenzie -HD planned for tomorrow, but concern for pericardial fluid Code(s): N18.6 - END STAGE RENAL DISEASE (4) CHF (congestive heart failure) Assessment/Plan: -appreciate cardiology assistance -continue HD and lasix Code(s): I50.9 - HEART FAILURE, UNSPECIFIED (5) HLD (hyperlipidemia) Assessment/Plan: -continue crestor Code(s): E78.5 - HYPERLIPIDEMIA, UNSPECIFIED Qualifiers: Hyperlipidemia type: pure hypercholesterolemia Qualified Code(s): E78.00 - Pure hypercholesterolemia, unspecified; E78.0 - Pure hypercholesterolemia (6) HTN (hypertension) Assessment/Plan: -continue lasix, losartan, and coreg -controlled Code(s): I10 - ESSENTIAL (PRIMARY) HYPERTENSION Qualifiers: Hypertension type: essential hypertension Qualified Code(s): I10 - Essential (primary) hypertension (7) 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
--- NOTE | 2017-12-11 12:38 | PN ---
Progress Note (short form) - Note Progress Note: Patient seen and examined in the Telemetry unit. Remains mildly tachypniec. Now on NC O2 (has been on VM O2) No CP. Apparently awaiting transfer to [place]. Intake & Output 12/08/17 12/09/17 12/10/17 12/11/17 23:59 23:59 23:59 23:59 Intake Total 200 600 850 270 Output Total 200 Balance 200 600 850 70 Weight 151 lb 14.4 oz 148 lb 4 oz Last Vital Signs Temp Pulse Resp BP Pulse Ox 98.4 F 98 H 20 108/73 92 L 12/11/17 10:00 12/11/17 10:00 12/11/17 10:00 12/11/17 10:00 12/11/17 08:44 Active Medications Albuterol Sulfate (Ventolin 0.083% Nebulizer Soln -) 1 amp NEB Q4H PRN PRN Reason: SHORT OF BREATH/WHEEZING Aspirin (Ecotrin -) 81 mg PO DAILY [facility] Last Admin: 12/11/17 10:11 Dose: 81 mg Budesonide/Formoterol Fumarate (Symbicort 80/4.5mcg -) 2 puff IH BID [facility] Last Admin: 12/11/17 10:11 Dose: 2 puff Carvedilol (Coreg -) 3.125 mg PO BID [facility] Last Admin: 12/11/17 10:11 Dose: 3.125 mg Heparin Sodium (Porcine) (Heparin -) 5,000 unit SQ TID [facility] Last Admin: 12/11/17 06:15 Dose: 5,000 unit Sodium Chloride (Normal Saline -) 250 mls @ 3,000 mls/hr IV PRN PRN PRN Reason: Hypotension during Dialysis Methylprednisolone Sodium Succinate (Solu-Medrol -) 40 mg IVPUSH Q6H-IV [facility] Last Admin: 12/11/17 10:10 Dose: 40 mg Rosuvastatin Calcium (Crestor -) 20 mg PO HS [facility] Last Admin: 12/10/17 22:48 Dose: 20 mg Sevelamer Carbonate (Renvela -) 1,600 mg PO TIDCM [facility] Last Admin: 12/11/17 12:15 Dose: 1,600 mg Tamsulosin HCl (Flomax -) 0.4 mg PO DAILY@0830 [facility] Last Admin: 12/11/17 08:44 Dose: 0.4 mg Tiotropium [place] (Spiriva -) 1 puff IH DAILY [facility] Last Admin: 12/11/17 10:10 Dose: 1 puff Constitutional: Yes: Awake and alert, Mildly tachypneic on 50% VM O2 Cardiovascular: Yes: Tachycardia. No: Pulse Irregular, Gallop, Murmur, Rub Respiratory: Yes: Bibasilar faint rales, I:E mildly prolonged, no wheezing, On NC O2, Mild Tachypnea. No:Wheezes Gastrointestinal: Yes: Normal Bowel Sounds, Soft. No: Distention, Tenderness Extremities: Yes: WNL Edema: No Labs: Laboratory Results - last 24 hr 12/11/17 12/11/17 05:35 05:35 WBC 7.9 RBC 3.36 L Hgb 12.1 Hct 36.2 MCV 107.6 H MCH 36.1 H MCHC 33.5 RDW 15.2 Plt Count 145 MPV 10.2 Neutrophils % 89.3 H Lymphocytes % 5.7 L Monocytes % 4.9 Eosinophils % 0.0 Basophils % 0.1 Sodium 139 Potassium 4.3 Chloride 100 Carbon Dioxide 27 Anion Gap 12 BUN 62 H Creatinine 5.2 H D Random Glucose 230 H Calcium 7.8 L Phosphorus 7.1 H Magnesium 2.7 H Problem List - Problems (1) Acute and chronic respiratory failure with hypoxia Code(s): J96.21 - ACUTE AND CHRONIC RESPIRATORY FAILURE WITH HYPOXIA (2) CHF (congestive heart failure) Code(s): I50.9 - HEART FAILURE, UNSPECIFIED (3) CKD (chronic kidney disease) stage 5, GFR less than 15 ml/min Code(s): N18.5 - CHRONIC KIDNEY DISEASE, STAGE 5 (4) COPD (chronic obstructive pulmonary disease) Code(s): J44.9 - CHRONIC OBSTRUCTIVE PULMONARY DISEASE, UNSPECIFIED Qualifiers: COPD type: COPD with acute exacerbation Qualified Code(s): J44.1 - Chronic obstructive pulmonary disease with (acute) exacerbation (5) Dyspnea, unspecified Code(s): R06.00 - DYSPNEA, UNSPECIFIED Qualifiers: Dyspnea type: dyspnea on exertion Qualified Code(s): R06.09 - Other forms of dyspnea (6) ESRD (end stage renal disease) Code(s): N18.6 - END STAGE RENAL DISEASE (7) Emphysema lung Code(s): J43.9 - EMPHYSEMA, UNSPECIFIED (8) GERD (gastroesophageal reflux disease) Code(s): K21.9 - GASTRO-ESOPHAGEAL REFLUX DISEASE WITHOUT ESOPHAGITIS (9) HLD (hyperlipidemia) Code(s): E78.5 - HYPERLIPIDEMIA, UNSPECIFIED Qualifiers: Hyperlipidemia type: pure hypercholesterolemia Qualified Code(s): E78.00 - Pure hypercholesterolemia, unspecified; E78.0 - Pure hypercholesterolemia (10) Pulmonary HTN Code(s): I27.20 - PULMONARY HYPERTENSION, UNSPECIFIED IMP ACUTE ON CHRONIC HYPOXEMIC RESPIRATORY FAILURE DOES NOT APPEAR TO BE CLINICALLY VOLUME OVERLOADED COPD: SEEMS STABLE AT PRESENT PULMONARY HTN ESRD ON HD GERD ? OSAS: LOW SUSPICION PERICARDIAL EFFUSION (?) SHUNT CAUSING THIS DEGREE OF HYPOXEMIA PLAN HD PER RENAL O2 TO MAINTAIN SATURATION > 90% INHALED BRONCHODILATORS DAILY WT SLEEP STUDIES OUTPATIENT AWAITING TRANSFER [facility] FOR FURTHER WORKUP/INTERVENTION WILL FOLLOW DR TIRADO
[2017-12-11 14:20] VITALS: BP 97/59; TEMP 97.5
--- NOTE | 2017-12-11 15:43 | PN ---
Progress Note, Physician History of Present Illness: Pt seen and examined at bedside. He is awake and alert. He complains of shortness of breath. - Current Medication List Current Medications: Active Medications Albuterol Sulfate (Ventolin 0.083% Nebulizer Soln -) 1 amp NEB Q4H PRN PRN Reason: SHORT OF BREATH/WHEEZING Aspirin (Ecotrin -) 81 mg PO DAILY [facility] Last Admin: 12/11/17 10:11 Dose: 81 mg Budesonide/Formoterol Fumarate (Symbicort 80/4.5mcg -) 2 puff IH BID [facility] Last Admin: 12/11/17 10:11 Dose: 2 puff Carvedilol (Coreg -) 3.125 mg PO BID [facility] Last Admin: 12/11/17 10:11 Dose: 3.125 mg Heparin Sodium (Porcine) (Heparin -) 5,000 unit SQ TID [facility] Last Admin: 12/11/17 14:24 Dose: 5,000 unit Sodium Chloride (Normal Saline -) 250 mls @ 3,000 mls/hr IV PRN PRN PRN Reason: Hypotension during Dialysis Methylprednisolone Sodium Succinate (Solu-Medrol -) 40 mg IVPUSH Q6H-IV [facility] Last Admin: 12/11/17 14:24 Dose: 40 mg Rosuvastatin Calcium (Crestor -) 20 mg PO HS [facility] Last Admin: 12/10/17 22:48 Dose: 20 mg Sevelamer Carbonate (Renvela -) 1,600 mg PO TIDCM [facility] Last Admin: 12/11/17 12:15 Dose: 1,600 mg Tamsulosin HCl (Flomax -) 0.4 mg PO DAILY@0830 [facility] Last Admin: 12/11/17 08:44 Dose: 0.4 mg Tiotropium [place] (Spiriva -) 1 puff IH DAILY [facility] Last Admin: 12/11/17 10:10 Dose: 1 puff - Objective Vital Signs: Vital Signs Temperature 97.5 F L 12/11/17 14:19 Pulse Rate 92 H 12/11/17 14:19 Respiratory Rate 18 12/11/17 14:19 Blood Pressure 97/59 12/11/17 14:19 O2 Sat by Pulse Oximetry (%) 92 L 12/11/17 08:44 Constitutional: Yes: Calm Eyes: Yes: Conjunctiva Clear Cardiovascular: Yes: S1, S2 Respiratory: Yes: On Nasal O2 Gastrointestinal: Yes: Soft Genitourinary: Yes: WNL Extremities: Yes: WNL Edema: No Neurological: Yes: Oriented Psychiatric: Yes: Oriented Labs: CBC, BMP 12/11/17 05:35 12/11/17 05:35 INR, PTT INR 1.32 (0.82-1.09) H 12/08/17 13:11 Problem List - Problems (1) Anemia Code(s): D64.9 - ANEMIA, UNSPECIFIED Qualifiers: Anemia type: due to chronic kidney disease Chronic kidney disease stage: on chronic dialysis Qualified Code(s): N18.6 - End stage renal disease; D63.1 - Anemia in chronic kidney disease; D63.1 - Anemia in chronic kidney disease; Z99.2 - Dependence on renal dialysis; Z99.2 - Dependence on renal dialysis; Z99.2 - Dependence on renal dialysis; Z99.2 - Dependence on renal dialysis (2) BPH (benign prostatic hyperplasia) Code(s): N40.0 - BENIGN PROSTATIC HYPERPLASIA WITHOUT LOWER URINRY TRACT SYMP Qualifiers: Lower urinary tract symptom presence: symptoms present Lower urinary tract symptom detail: urinary frequency Qualified Code(s): N40.1 - Benign prostatic hyperplasia with lower urinary tract symptoms; R35.0 - Frequency of micturition ; R35.0 - Frequency of micturition (3) CHF (congestive heart failure) Code(s): I50.9 - HEART FAILURE, UNSPECIFIED Assessment/Plan Current Medications Generic Name Dose Route Start Last Admin Trade Name Freq PRN Reason Stop Dose Admin Albuterol Sulfate 1 amp 12/10/17 15:49 Ventolin 0.083% Nebulizer Soln - NEB Q4H PRN SHORT OF BREATH/WHEEZING Aspirin 81 mg 12/11/17 10:00 12/11/17 10:11 Ecotrin - PO 81 mg DAILY [facility] Administration Budesonide/Formoterol Fumarate 2 puff 12/10/17 22:00 12/11/17 10:11 Symbicort 80/4.5mcg - IH 2 puff BID [facility] Administration Carvedilol 3.125 mg 12/10/17 11:49 12/11/17 10:11 Coreg - PO 3.125 mg BID [facility] Administration Heparin Sodium (Porcine) 5,000 unit 12/10/17 22:00 12/11/17 14:24 Heparin - SQ 5,000 unit TID [facility] Administration Sodium Chloride 250 mls @ 3,000 mls/hr 12/10/17 15:49 Normal Saline - IV PRN PRN Hypotension during Dialysis Methylprednisolone Sodium Succinate 40 mg 12/10/17 21:00 12/11/17 14:24 Solu-Medrol - IVPUSH 40 mg Q6H-IV [facility] Administration Rosuvastatin Calcium 20 mg 12/10/17 22:00 12/10/17 22:48 Crestor - PO 20 mg HS [facility] Administration Sevelamer Carbonate 1,600 mg 12/10/17 17:30 12/11/17 12:15 Renvela - PO 1,600 mg TIDCM [facility] Administration Tamsulosin HCl 0.4 mg 12/11/17 08:30 12/11/17 08:44 Flomax - PO 0.4 mg DAILY@0830 [facility] Administration Tiotropium [place] 1 puff 12/11/17 10:00 12/11/17 10:10 Spiriva - IH 1 puff DAILY [facility] Administration Impression 1. ESRD 2. CHF 3. anemia 4. HTN 5. hyperlipidemia 6. hypoxia 7. pulm hypertension 8. CAD 9. pericardial effusion Plan - repeat echo done, cardiology follow up - cts follow up for pericardial effusion - pt pending transfer to [place] - next HD tomorrow - discussed plan at length with his daughter - discussed with medical team - monitor BP
--- NOTE | 2017-12-11 18:24 | PROC ---
Intubation - Intubation Reason for Intubation: Other (Cardiopulmonary arrest) Time of Intubation: 17:45 Intubation Method: orotracheal Blade used: Mac (#4) Tube Size (cm): 8.0 Tube position @ lip (cm): 22 Tube position confirmed by: Direct visualization, CO2 detector, Breath sounds Breath Sounds after Intubation: equal (CXR pending. Code still in progress.) Remarks: Anesthesiology Called for "Code 99." On arrival, ACLS/chest compressions in progress. Pt. was pulseless. There was transient return of pulse which was lost again and compressions resumed. During this time, I intubated the trachea with compressions in progress; no pause in compressions. Tube placement confirmed at this time with bilateral breath sounds and appropriate color-change on carboximeter. Code was still in progress at that time so further management and CXR confirmation deferred to ICU/code team. Pt. in critical condition.
--- NOTE | 2017-12-11 19:37 | PROC ---
Central Line Insertion Indication: Other (code 99) Risks and Benefits Explained: No Consent on Chart: No Central Line: Triple Lumen Catheter Sterile Technique: No Ultrasound Guided Assistance: No Position: Right Femoral Post Insertion: Yes: Other (good venous return)
--- NOTE | 2017-12-11 19:43 | PN ---
Progress Note (short form) - Note Progress Note: PULMONARY/CCM 67yo male with h/o HTN, CAD, ESRD on HD, COPD, interstitial lung disease, severe pulmonary HTN, chronic hypoxic respiratory failure on home O2 who was admitted 12/08 for worsening shortness of breath who was found to have mediastinal lymphadenopathy and pericardial effusion. Was planned for transfer to [place] for further work up. Rapid response called after pt became weak ambulating to the bathroom, denied any specific complaints at that time, pt became unresponsive and code 99 called. See code sheet for further details but during code, pt with multiple intermittent ROSC for few minutes before eventually becoming bradycardic and pulseless. Levophed, dopamine, epinephrine gtts started during the times pt regained pulse. Bedside echocardiogram showing severely reduced LV contractility and small pericardial effusion. Code called at 5:45PM, time of 7:31PM. Gordon Han MD critical care time spent not including procedures or CPR 90 min
--- NOTE | 2017-12-11 19:48 | RAPID ---
Physical Examination Vital Signs: Vital Signs Temperature 97.5 F L 12/11/17 14:19 Pulse Rate 92 H 12/11/17 14:19 Respiratory Rate 18 12/11/17 14:19 Blood Pressure 97/59 12/11/17 14:19 O2 Sat by Pulse Oximetry (%) 92 L 12/11/17 08:44 Findings/Remarks: This is a Code 99 note Rapid response was called overhead around 17:30h for patient. Upon arrival pt was with nursing staff and assistant director of nursing who reports pt syncopized while on the way to the bathroom. Pt was wearing a VM 50% while ambulatin with assistance to the bathroom. Pt was slowly lowered without any trauma by the nurses aid per nursing staff reports. Pt on arrival was awake, however sensorium seem clouded. He was responding to commands and reported he did not have any chest pain, trouble breathing, back pain, leg pain, or sacral pain. At this point pt's BP was 130/82 and oxygen saturation did not resolve on monitor. At this point pt became unresponsive and pulse was lost. Code 99 was called overhead and CPR was initiated per ACLS protocol. During the code, pt received multiple rounds of epinephrine, calcium, and bicarbonate. He was intubated per anesthesia team with confirmation of ETT placement via b/l breath sounds and CO2 detector. Pt had multiple episodes of ROSC during the code with hypotension post-ROSC, however almost immediately pt would lose palpable pulses and CPR would then be resumed. Throughout these episodes, pt's monitor had underlying irregular sinus rhythm that would become bradycardic and eventually PEA. R femoral triple lumen catheter was placed at bedside and pt received an epinephrine gtt, levophed gtt, dopamine gtt, and sodium bicarbonate gtt. Bedside echocardiogram was performed which showed trace pericardial effusion without any ventricular septum bowing or alternans observed. Pt was transferred to the ICU while having palpable pulses and efforts were continued. In the ICU, palpable pulses were lost and CPR was continued per ACLS guidelines and epinephrine pushes were continued per ACLS guideline. Pt had A-line placed in L femoral artery for assessment of pulse. Throughout the entire code family was talked to and had the situation discussed, Dr. Diaz (primary provider) was notified, and Dr. Hopkins was eventually notified. CPR continued until 7:22 when pt's son reported to cease cardiac arrest efforts. At this time pt had ROSC with hypotension down to 60/42 with A-line showing bradycardiac pulse coordinating with bedside monitor. Time of pronounced by Dr. Han at 19:30h. [phone]# [phone] (Dr. Diaz) notified and declined case For additional information please refer to the official CODE 99 form in chart. Labs: CBC, BMP 12/11/17 05:35 12/11/17 05:35
--- NOTE | 2017-12-11 20:33 | PN ---
Progress Note (short form) - Note Progress Note: Cardiology Events of this evening reviewed. Patient was in bathroom and slid to floor. Was attended by residents who noted the patient became cyanotic and then with LOC. ACLS was initiated, patient intubated with prolonged recussitation efforts. Earlier today, an echo was repeated showing improvement in pericardial effusion from yesterday with no tamponade physiology. As per critical care team/code team , another bedside echo was performed at the time of the event showing a small to moderate effusion with no right sided compression/ no tamponade. After prolonged recussitation efforts, patient . I came back to hospital during these events to assist with recussitation and to help console family and explain the patient's overall condition. Family was extremely emotional and some family members did not have a full understanding of the many medical issues Mr. Krishnamurthy was suffering from: ESRD, PHTN, adenopathy etc. because he had not shared all of his medical details with them. I explained all of this and how this combination of illnesses could lead to progressive hypoxia and all associated complications including cardiac arrest. It should be noted that efforts were made throughout the day to transfer him [place] and also to [facility]- he was accepted for transfer earlier today to [address] Pak. Family expressed some anger about why he was not transferred sooner. I explained that all efforts were made to expedite his transfer. Unfortunately, his overall condition had progressed to an advanced stage. I explained that the transferring him would probably not have changed the ultimate outcome nor prevented the acute event which occurred.
--- NOTE | 2017-12-11 21:15 | HOSP ---
Subjective - Review of Symptoms Events since last encounter: ICU Note No spontaneous movements No spontaneous respirations No heart sounds, no pulse, rhythm asystole HR 0, BP 0/0, RR 0 Pupils are fixed and dilated No corneal or gag reflex Time of : 7:30pm. Family at bedside. Support Given. Dr Diaz Notified. cellophane wrapping examiner notified , not accepted. Organ Donation called [id number] Visit type - Emergency Visit Emergency Visit: No - New Patient This patient is new to me today: Yes Date on this admission: 12/11/17 - Critical Care Critical Care patient: No
[2017-12-12 00:07] LABS: HBSAG SCREEN Negative (Negative); HEP A AB, IGM Negative (Negative); HEP B CORE AB, TOT Negative (Negative)
[2017-12-12 00:18] VITALS: PULSE 92
== END 2017-12-11 21:00 | disposition expired | DRG 208 ==
LOC: JER 11:21 → JERBED 14:43 → J5S 20:17 → OBSVTOIN 12-09 12:25 → J4S 12-10 14:47 → JICU 12-11 18:49
PROVIDERS: ADMIT Internal Medicine; ATTEND Internal Medicine
PROC: 5A1D90Z Performance of Urinary Filtration, Continuous, Greater than 18 hours Per Day (ICD-10-PCS; 2017-12-10)
PROC: 5A1935Z Respiratory Ventilation, Less than 24 Consecutive Hours (ICD-10-PCS; principal; 2017-12-11)
PROC: 0BH17EZ Insertion of Endotracheal Airway into Trachea, Via Natural or Artificial Opening (ICD-10-PCS; 2017-12-11)
PROC: 05HM33Z Insertion of Infusion Device into Right Internal Jugular Vein, Percutaneous Approach (ICD-10-PCS; 2017-12-11)
DX: J96.21 Acute and chronic respiratory failure with hypoxia (principal); N18.6 End stage renal disease; J44.1 Chronic obstructive pulmonary disease with (acute) exacerbation; I13.2 Hypertensive heart and chronic kidney disease with heart failure and with stage 5 chronic kidney disease, or end stage renal disease; I31.3 Pericardial effusion (noninflammatory); I50.30 Unspecified diastolic (congestive) heart failure; I27.20 Pulmonary hypertension, unspecified; Z99.2 Dependence on renal dialysis; D64.9 Anemia, unspecified; N40.0 Benign prostatic hyperplasia without lower urinary tract symptoms; K21.9 Gastro-esophageal reflux disease without esophagitis; E78.5 Hyperlipidemia, unspecified; R59.0 Localized enlarged lymph nodes; I25.10 Atherosclerotic heart disease of native coronary artery without angina pectoris
CPT/HCPCS: 36415; 71045-TC-FY; 71250-TC; 80048; 80053; 82550; 82803; 83735; 83880; 84100; 84484; 85025; 85610; 86704; 86706; 86708; 87340; 93005; 93010; 93306-TC; 94640; 99281-25; G0378; J1644